=== PATIENT | female | born 1930 | race African-American/Black ===

== ENCOUNTER 2018-01-28 05:39 | Emergency (ER) | payer OTHER ==
--- OUTSIDE RECORDS SUMMARY | 2018-01-28 05:41 | XMS REPORT | Clinical Summary ---
:1930 [facility] Address [address] [place] [address] Care Team Providers Name Role Phone Unavailable Primary Care Provider Unavailable Allergies Not on File Medications Not on file Active Problems Not on file Social History Tobacco Use Types Packs/Day Years Used Date Never Assessed Sex Assigned at Date Recorded Not on file Job Start Date Occupation Industry Not on file Not on file Not on file Travel History Travel Start Travel End No recent travel history available. Last Filed Vital Signs Not on file Plan of Treatment Health Maintenance Due Date Last Done Comments SHINGRIX VACCINE (1 of 2) 12/31/1981 ZOSTER VACCINE 1992 PNEUMOCOCCAL POLYSACCHARIDE VACCINE AGE 65 AND OVER 12/31/1996 PNEUMOCOCCAL-13 12/31/1996 INFLUENZA VACCINE 09/24/2017 Results Not on fileafter 01/27/2017 Insurance Payer Benefit Plan / Group Subscriber ID Type Phone Address [employer] [facility] xxxxxxxxx [facility] MEDICAID MEDICAID xxxxxxxxx Medicaid UHC MEDICARE UNITED/CARE [facility] xxxxxxxxx [facility] MEDICARE MEDICARE PART A AND B xxxxxxxxxxx Medicare [place], [place] Advance Directives Patient has advance care planning documents on file. For more information, please contact:[facility] [place] [address]
--- OUTSIDE RECORDS SUMMARY | 2018-01-28 05:41 | XMS REPORT | Continuity of Care Document ---
:1930 Author Organization Interface Problems Problem Status Onset Date Classification Date Comments Source Reported Medications Medication Details Route Status Patient Ordering Order Source Instructions Provider Date Allergies, Adverse Reactions, Alerts Substance Category Reaction Severity Reaction Status Date Comments Source type Reported Immunizations Immunization Date Given Site Status Last Updated Comments Source Results Order Results Value Reference Date Interpretation Comments Source Name Range Vital Signs Vital Sign Value Date Comments Source Encounters Location Location Encounter Encounter Reason Attending ADM DC Status Source Details Type Number For Provider Date Date Visit Outpatient [id number] [facility] 12/11 [facility] Outpatient [id number] [facility] 03/12 [facility] Procedures Procedure Code Date Perfomer Comments Source
[2018-01-28 06:56] LABS: Absolute Lymphocytes (CBC) 2.9 K/uL (0.7-4.9); Absolute Monocytes 0.9 K/uL (0.1-1.3); Absolute Neutrophil 6.7 K/uL (1.8-8.0); Basophils % 1.1 % (0-1.3); Eosinophils % 1.2 % (0-4.4); Hematocrit 39.8 % (36.0-45.0); Lymphocytes % 26.7 % (15.3-44.8); MCH 28.6 pg (27.0-35.0); MCV 84.9 fL (80-100); Monocytes % 8.2 % (3.3-12.3); RBC Red Blood Cell Count 4.69 M/uL (3.86-4.86)
[2018-01-28 07:09] LABS: Urine Blood NEGATIVE (NEG); Urine Glucose NEGATIVE (NEG); Urine Protein NEGATIVE (NEG); Urine Specific Gravity 1.015 (1.005-1.030); Urine pH 7.5 (5.0-7.0)
[2018-01-28] MEDS ORDERED: NA CHLORIDE 0.9% 1,000 ML ONE (07:23)
[2018-01-28 08:38] LABS: Potassium 2.9 mmol/L (3.5-5.1)
[2018-01-28] MEDS ORDERED: POTASSIUM CL SA 10 MEQ TAB PO ONE (09:13)
[2018-01-28] MEDS ORDERED: POTASSIUM 25 MEQ EFFERV TAB ONE (09:14)
--- NOTE | 2018-01-28 09:23 | RAD REPORT ---
EXAM DESCRIPTION: CT - Abdomen Pelvis W Contrast - 01/28/2018 8:55 am CLINICAL HISTORY: Abdominal pain, increased urinary frequency COMPARISON: None. TECHNIQUE: Biphasic, helical CT imaging of the abdomen and pelvis was performed following 100 ml non -ionic IV contrast. No oral contrast administered. All CT scans are performed using dose optimization technique as appropriate and may include automated exposure control or mA/KV adjustment according to patient size. FINDINGS: No suspicious findings in the lung bases. The liver, spleen, and pancreas show no suspicious findings. Multiple gallstones are present without evidence for an acute gallbladder process. No biliary tree dilatation. Pneumobilia is present. Symmetric renal function is seen with no hydronephrosis or suspicious renal mass. No pyelonephritis f indings. No perinephric stranding. Adrenal glands are unremarkable. No urinary bladder wall thickenin g, mass or enhancement. Uterus and ovaries show no significant findings. No dilated bowel loops or bowel wall thickening. No appendicitis findings. No free air, free fluid or inflammatory stranding. Small mesenteric lymph nodes are present and there is a mild congestion of t he central mesenteric fat. No hernia, mass or bulky lymphadenopathy. Disc and bony degenerative changes are present. No pathologic bone process seen. IMPRESSION: No pyelonephritis is identified. No acute finding seen to explain urinary frequency s ymptoms. No acute GI process. Patient has a mild congestion of the central mesenteric fat and a few mesenteric lymph nodes. Pneumobilia is present without biliary tree dilatation. Patient gave a history of cholecystectomy ; h owever, a gallbladder with stones is identified. No cholecystectomy clips are seen in the patient may have at a sphincterotomy rather than a cholecystectomy.
--- NOTE | 2018-01-28 10:53 | EDPHYS ---
Physician Documentation [facility] Name: Cortney Orozco Age: 88 yrs Sex: Female : 1930 Arrival Date: 01/28/2018 Time: 05:41 Bed 16 Private MD: Roman Chappell E ED Physician Bradly Barker HPI: 01/28 06:12 This 88 yrs old Black Female presents to ER via Ambulatory with complaints of Flank kb Pain. 06:12 The patient complains of pain in the left flank. The pain radiates to the left upper kb quadrant and left lower quadrant. Onset: The symptoms/episode began/occurred 3 day(s) ago. Modifying factors: The symptoms are alleviated by nothing. the symptoms are aggravated by nothing. Associated signs and symptoms: The patient has no apparent associated signs or symptoms. Severity of pain: At its worst the pain was mild moderate in the emergency department the pain is unchanged. The patient has not experienced similar symptoms in the past. The patient has not recently seen a physician. Pt reports left side pain for 3 days. Denies fever, n/v/d, and urinary symptoms.. Historical: - Allergies: 06:00 No Known Allergies; cc3 - Home Meds: 06:00 Klor-Con 10 10 mEq oral TbER 2 times per day [Active]; Xarelto 20 mg oral tab 1 tab cc3 once daily [Active]; amlod-benaz 10/40 once daily [Active]; hydrochlorothiazide 25 mg Oral tab 1 tab once daily [Active]; atorvastatin 20 mg oral tab 1 tab once daily [Active]; losartan 50 mg oral tab 1 tab once daily [Active]; metoprolol tartrate 100 mg Oral tab 1 tab once daily [Active]; - PMHx: 06:00 history of blood clot; High Cholesterol; Hypertension; cc3 - PSHx: 06:00 Cholecystectomy; partial thyroidectomy; cc3 - Immunization history:: Adult Immunizations up to date. - Social history:: Smoking status: Patient/guardian denies using tobacco, never smoked. - Ebola Screening: : No symptoms or risks identified at this time. ROS: 06:12 Constitutional: Negative for fever, chills, and weight loss, Cardiovascular: Negative kb for chest pain, palpitations, and edema, Respiratory: Negative for shortness of breath, cough, wheezing, and pleuritic chest pain, : Negative for injury, bleeding, discharge, and swelling, MS/Extremity: Negative for injury and deformity, Skin: Negative for injury, rash, and discoloration, Neuro: Negative for headache, weakness, numbness, tingling, and seizure. 06:12 Abdomen/GI: Positive for abdominal pain, Negative for nausea, vomiting, and diarrhea. 06:12 Back: Positive for flank pain, on the left. Exam: 06:12 Constitutional: This is a well developed, well nourished patient who is awake, alert, kb and in no acute distress. Head/Face: Normocephalic, atraumatic. Neck: Trachea midline, no thyromegaly or masses palpated, and no cervical lymphadenopathy. Supple, full range of motion without nuchal rigidity, or vertebral point tenderness. No Meningismus. Chest/axilla: Normal chest wall appearance and motion. Nontender with no deformity. No lesions are appreciated. Cardiovascular: Regular rate and rhythm with a normal S1 and S2. No gallops, murmurs, or rubs. Normal PMI, no JVD. No pulse deficits. Respiratory: Lungs have equal breath sounds bilaterally, clear to auscultation and percussion. No rales, rhonchi or wheezes noted. No increased work of breathing, no retractions or nasal flaring. Abdomen/GI: Soft, non-tender, with normal bowel sounds. No distension or tympany. No guarding or rebound. No evidence of tenderness throughout. Skin: Warm, dry with normal turgor. Normal color with no rashes, no lesions, and no evidence of cellulitis. MS/ Extremity: Pulses equal, no cyanosis. Neurovascular intact. Full, normal range of motion. Neuro: Awake and alert, GCS 15, oriented to person, place, time, and situation. Cranial nerves II-XII grossly intact. Motor strength 5/5 in all extremities. Sensory grossly intact. Cerebellar exam normal. Normal gait. 06:12 Back: ROM is normal, CVA tenderness, that is mild, is noted on the left. Vital Signs: 06:00 BP 161 / 89; Pulse 93; Resp 18 S; Temp 98.6(O); Pulse Ox 97% on R/A; Weight 85.28 kg cc3 (R); Height 5 ft. 4 in. (162.56 cm) (R); Pain 4/10; 07:32 BP 142 / 82; Pulse 86; Resp 16; Pulse Ox 99% on R/A; Pain 4/10; ph 09:20 BP 154 / 89; Pulse 93; Resp 18; Pulse Ox 100% on R/A; ph 10:30 BP 129 / 87; Pulse 84; Resp 18; Pulse Ox 96% on R/A; ph 11:12 BP 143 / 82; Pulse 87; Resp 18; Temp 98.8; Pulse Ox 98% on R/A; ph 06:00 Body Mass Index 32.27 (85.28 kg, 162.56 cm) cc3 MDM: 06:03 Patient medically screened. kb 06:12 Data reviewed: vital signs, nurses notes. Data interpreted: Pulse oximetry: on room air kb is 97 %. Interpretation: normal. 10:51 Counseling: I had a detailed discussion with the patient and/or guardian regarding: the kb historical points, exam findings, and any diagnostic results supporting the discharge/admit diagnosis, lab results, radiology results, the need for outpatient follow up, a family practitioner, to return to the emergency department if symptoms worsen or persist or if there are any questions or concerns that arise at home. 01/28 06:10 Order name: Basic Metabolic Panel; Complete Time: 08:40 kb 01/28 06:10 Order name: CBC with Diff; Complete Time: 07:10 kb 01/28 06:48 Order name: Urine Dipstick--Ancillary (enter results); Complete Time: 07:10 ms 01/28 07:11 Order name: CT Abd/Pelvis - W/Contrast; Complete Time: 09:27 kb 01/28 09:44 Order name: Lactate kb 01/28 10:43 Order name: Lactate; Complete Time: 10:48 EDMS 01/28 06:10 Order name: IV Saline Lock; Complete Time: 06:44 kb 01/28 06:10 Order name: Labs collected and sent; Complete Time: 06:44 kb 01/28 07:06 Order name: Labs - recollect needed; Complete Time: 07:31 eb Administered Medications: 07:31 Drug: NS 0.9% 1000 ml Route: IV; Rate: 1000 ml; Site: right antecubital; ph 09:17 Follow up: Response: No adverse reaction; IV Status: Completed infusion ph 09:17 Drug: Potassium Chloride 40 mEq Route: PO; ph 09:18 Follow up: Response: No adverse reaction ph 11:11 Drug: Cipro 500 mg Route: PO; ph 11:11 Follow up: Response: No adverse reaction ph 11:11 Drug: Flagyl 500 mg Route: PO; ph 11:12 Follow up: Response: No adverse reaction ph Disposition: 01/28/18 10:52 Discharged to Home. Impression: Generalized abdominal pain. - Condition is Stable. - Discharge Instructions: Abdominal Pain, Adult, [id number]. - Prescriptions for Cipro 500 mg Oral Tablet - take 1 tablet by ORAL route every 12 hours for 10 days; 20 tablet. Flagyl 500 mg Oral Tablet - take 1 tablet by ORAL route every 8 hours for 10 days; 30 tablet. - Medication Reconciliation Form, Thank You Letter, Antibiotic Education, Prescription Opioid Use form. - Family Work Release (01/28/18 19:13). em1 - Follow up: Emergency Department; When: As needed; Reason: Worsening of condition. Follow up: Private Physician; When: 2 - 3 days; Reason: Recheck today's complaints, Continuance of care, Re-evaluation by your physician. Signatures: Dispatcher [employer] EDJudith Hatch, SALVAGE WINDER-C SALVAGE WINDER-Maddi Martin RN RN Sofy Dubois Charlene cc3 Martinez, Bartolome em1 Corrections: (The following items were deleted from the chart) 11:31 10:52 01/28/2018 10:52 Discharged to Home. Impression: Generalized abdominal pain. ph Condition is Stable. Forms are Medication Reconciliation Form, Thank You Letter, Antibiotic Education, Prescription Opioid Use. Follow up: Emergency Department; When: As needed; Reason: Worsening of condition. Follow up: Private Physician; When: 2 - 3 days; Reason: Recheck today's complaints, Continuance of care, Re-evaluation by your physician. kb
--- NOTE | 2018-01-28 10:53 | ER ---
Nurse's Notes [facility] Name: Cortney Orozco Age: 88 yrs Sex: Female : 1930 Arrival Date: 01/28/2018 Time: 05:41 Bed 16 Private MD: Roman Chappell E Diagnosis: Generalized abdominal pain Presentation: 01/28 06:00 Presenting complaint: Patient states: complains of urinary frequency that comes \T\ goes cc3 3-4 days ago. Was seen by PCP yesterday. Transition of care: patient was not received from another setting of care. Onset of symptoms was January 24, 2018. Risk Assessment: Do you want to hurt yourself or someone else? Patient reports no desire to harm self or others. Initial Sepsis Screen: Does the patient meet any 2 criteria? No. Patient's initial sepsis screen is negative. Does the patient have a suspected source of infection? No. Patient's initial sepsis screen is negative. Care prior to arrival: None. 06:00 Method Of Arrival: Ambulatory cc3 06:00 Acuity: VITALIY 3 cc3 Triage Assessment: 06:00 General: Appears in no apparent distress. comfortable, Behavior is calm, cooperative, cc3 appropriate for age. Pain: Complains of pain in left flank pain. EENT: No signs and/or symptoms were reported regarding the EENT system. Neuro: Level of Consciousness is awake, alert, obeys commands, Oriented to person, place, time, situation, Appropriate for age. Cardiovascular: Denies chest pain. Respiratory: Airway is patent Respiratory effort is even, unlabored, Respiratory pattern is regular, symmetrical. GI: Abdomen is round obese. : Reports urinary frequency, since 3-4 days back. Derm: No signs and/or symptoms reported regarding the dermatologic system. Musculoskeletal: Circulation, motion, and sensation intact. Range of motion: intact in all extremities. Historical: - Allergies: 06:00 No Known Allergies; cc3 - Home Meds: 06:00 Klor-Con 10 10 mEq oral TbER 2 times per day [Active]; Xarelto 20 mg oral tab 1 tab cc3 once daily [Active]; amlod-benaz 10/40 once daily [Active]; hydrochlorothiazide 25 mg Oral tab 1 tab once daily [Active]; atorvastatin 20 mg oral tab 1 tab once daily [Active]; losartan 50 mg oral tab 1 tab once daily [Active]; metoprolol tartrate 100 mg Oral tab 1 tab once daily [Active]; - PMHx: 06:00 history of blood clot; High Cholesterol; Hypertension; cc3 - PSHx: 06:00 Cholecystectomy; partial thyroidectomy; cc3 - Immunization history:: Adult Immunizations up to date. - Social history:: Smoking status: Patient/guardian denies using tobacco, never smoked. - Ebola Screening: : No symptoms or risks identified at this time. Screenin:00 Abuse screen: Denies threats or abuse. Denies injuries from another. Nutritional cc3 screening: No deficits noted. Tuberculosis screening: No symptoms or risk factors identified. Fall Risk Ambulatory Aid- None/Bed Rest/Nurse Assist (0 pts). Gait- Normal/Bed Rest/Wheelchair (0 pts) Mental Status- Oriented to own ability (0 pts). Assessment: 06:00 General: see triage assessment. cc3 07:31 Reassessment: Patient appears in no apparent distress at this time. Patient and/or ph family updated on plan of care and expected duration. Pain level reassessed. Patient is alert, oriented x 3, equal unlabored respirations, skin warm/dry/pink. Pt resting quietly, VSS, awaiting CT scan, daughter at bedside. 09:19 Reassessment: Patient appears in no apparent distress at this time. Patient and/or ph family updated on plan of care and expected duration. Pain level reassessed. Patient is alert, oriented x 3, equal unlabored respirations, skin warm/dry/pink. Pt resting quietly, awaiting CT results, family at bedside. 10:30 Reassessment: Patient appears in no apparent distress at this time. Patient and/or ph family updated on plan of care and expected duration. Pain level reassessed. Patient is alert, oriented x 3, equal unlabored respirations, skin warm/dry/pink. Pt resting quietly, awaiting lab results, daughter at bedside, VSS. Vital Signs: 06:00 BP 161 / 89; Pulse 93; Resp 18 S; Temp 98.6(O); Pulse Ox 97% on R/A; Weight 85.28 kg cc3 (R); Height 5 ft. 4 in. (162.56 cm) (R); Pain 4/10; 07:32 BP 142 / 82; Pulse 86; Resp 16; Pulse Ox 99% on R/A; Pain 4/10; ph 09:20 BP 154 / 89; Pulse 93; Resp 18; Pulse Ox 100% on R/A; ph 10:30 BP 129 / 87; Pulse 84; Resp 18; Pulse Ox 96% on R/A; ph 11:12 BP 143 / 82; Pulse 87; Resp 18; Temp 98.8; Pulse Ox 98% on R/A; ph 06:00 Body Mass Index 32.27 (85.28 kg, 162.56 cm) cc3 ED Course: 05:41 Patient arrived in ED. al2 05:41 Roman Chappell MD is Private Physician. al2 06:00 Arm band placed on right wrist. cc3 06:00 Patient has correct armband on for positive identification. Bed in low position. Call cc3 light in reach. Side rails up X 1. Pulse ox on. NIBP on. 06:03 Jessica Saavedra is Primary Nurse. cc3 06:03 Judith Alan FNP-C is PHCP. kb 06:03 Bradly Barker MD is Attending Physician. kb 06:08 Triage completed. cc3 06:35 Inserted saline lock: 20 gauge in right antecubital area, using aseptic technique. cc3 Blood collected. 07:00 Report given to LISA GRACE. cc3 07:06 Maddi Cutler RN is Primary Nurse. ph 07:32 Lab(s) recollected, by me, sent to lab. ph 08:55 CT Abd/Pelvis - W/Contrast In Process Unspecified. EDMS 11:13 No provider procedures requiring assistance completed. IV discontinued, intact, ph bleeding controlled, No redness/swelling at site. Pressure dressing applied. Administered Medications: 07:31 Drug: NS 0.9% 1000 ml Route: IV; Rate: 1000 ml; Site: right antecubital; ph 09:17 Follow up: Response: No adverse reaction; IV Status: Completed infusion ph 09:17 Drug: Potassium Chloride 40 mEq Route: PO; ph 09:18 Follow up: Response: No adverse reaction ph 11:11 Drug: Cipro 500 mg Route: PO; ph 11:11 Follow up: Response: No adverse reaction ph 11:11 Drug: Flagyl 500 mg Route: PO; ph 11:12 Follow up: Response: No adverse reaction ph Outcome: 10:52 Discharge ordered by . gasper 11:13 Discharged to home ambulatory, with family. ph 11:13 Condition: good 11:13 Discharge instructions given to patient, family, Instructed on discharge instructions, follow up and referral plans. medication usage, Demonstrated understanding of instructions, follow-up care, medications, Prescriptions given X 2. 11:31 Patient left the ED. ph Signatures: Dispatcher [employer] EDJudith Hatch, FLOOR SPECIALIST-C NAVDEEP-Maddi Martin, RN RN Zina, Jessica Rodriguez cc3
[2018-01-28] MEDS ORDERED: CIPROFLOXACIN HCL 500 MG TAB ONE (11:12)
[2018-01-28] MEDS ORDERED: metroNIDAZOLE 500 MG TABLET ONE (11:12)
== END 2018-01-28 11:31 | disposition home or self-care (01) ==
LOC: ER 05:39
DX: R10.84 Generalized abdominal pain (principal); I10 Essential (primary) hypertension; E78.00 Pure hypercholesterolemia, unspecified; Z79.01 Long term (current) use of anticoagulants
CPT/HCPCS: 36415; 74177; 80048; 81003; 83605; 85025; J7030; Q9967

== ENCOUNTER 2018-04-18 12:11 | Emergency (ER) | payer OTHER ==
--- OUTSIDE RECORDS SUMMARY | 2018-04-18 12:13 | XMS REPORT | Continuity of Care Document ---
[...] Number For Provider Date Date Visit Outpatient [id number] [facility] 12/11 [facility] [place] Outpatient [id number] [facility] 03/12 [facility] [place] Procedures Procedure Code Date Perfomer Comments Source
[2018-04-18 12:55] LABS: Absolute Lymphocytes (CBC) 1.2 K/uL (0.7-4.9); Absolute Monocytes 1.1 K/uL (0.1-1.3); Absolute Neutrophil 10.7 K/uL (1.8-8.0); Basophils % 0.2 % (0-1.3); Eosinophils % 0.4 % (0-4.4); Lymphocytes % 9.4 % (15.3-44.8); MPV 8.4 fL (7.6-11.3); Monocytes % 8.6 % (3.3-12.3); RBC Red Blood Cell Count 5.54 M/uL (3.86-4.86)
[2018-04-18] MEDS ORDERED: NA CHLORIDE 0.9% 500 ML ONE (12:59)
[2018-04-18] MEDS ORDERED: ONDANSETRON 4 MG/2 ML VIAL ONE (12:59)
[2018-04-18 13:16] LABS: Albumin 3.5 g/dL (3.4-5.0); Bilirubin Direct 0.3 mg/dL (0-0.2); Bilirubin Total 1.2 mg/dL (0.2-1.0); Protein, Total 7.7 g/dL (6.4-8.2)
[2018-04-18 13:22] LABS: Potassium 2.7 mmol/L (3.5-5.1)
--- NOTE | 2018-04-18 15:15 | RAD REPORT ---
EXAM DESCRIPTION: CT - Abdomen Pelvis W Contrast - 04/18/2018 2:51 pm CLINICAL HISTORY: Abdominal pain, nausea and vomiting COMPARISON: January 2018 TECHNIQUE: Axial 5 millimeter thick images of the abdomen and pelvis were obtained following IV cont rast. Due to technical malfunction exam was performed as a late venous phase examination. No oral con trast administered. All CT scans are performed using dose optimization technique as appropriate and may include automated exposure control or mA/KV adjustment according to patient size. FINDINGS: Cardiomegaly is present without pericardial thickening or effusion. Significant scarring c hanges are present in each lung base. The liver, spleen, and pancreas show no suspicious findings. Gallbladder is filled with multiple smal l gallstones. No acute gallbladder finding. No biliary tree dilatation. Gallstones have been previous ly detailed. Symmetric renal function is seen with no hydronephrosis or suspicious renal mass. No pyelonephritis o r acute parenchymal process. No bladder abnormalities. No adrenal abnormalities. Uterus and ovaries s how no suspicious findings for age. No gastric dilatation or gastric wall thickening seen. Small bowel loops are not dilated. There are m ultiple prominent small bowel loops with mildly enhancing crow. There is stranding and edema in the central mesenteric fat. There several 10 mm or less central mesenteric lymph nodes. No appendicitis i s present. Patient has diverticulosis but no diverticulitis. No primary large bowel process seen. No free air, free fluid or pneumatosis. No hernia, mass or bulky lymphadenopathy. Advanced disc and bony degenerative change present. No acute bone finding or pathologic bone process. IMPRESSION: Infectious/inflammatory small bowel enteritis findings with central mesenteric reactive lymph nodes. No free air, obstruction or surgically emergent finding. Extensive cholelithiasis without acute gallbladder or biliary tree finding suspected.
--- NOTE | 2018-04-18 16:13 | ER ---
Nurse's Notes [facility] Name: Cortney Orozco Age: 88 yrs Sex: Female : 1930 Arrival Date: 04/18/2018 Time: 12:14 Bed 18 Private MD: Diagnosis: Vomiting;Diarrhea, unspecified Presentation: 04/18 12:30 Presenting complaint: N/V/D and abdominal cramping since midnight. Not tolerating hb fluids. Transition of care: patient was not received from another setting of care. Onset of symptoms was April 18, 2018. Risk Assessment: Do you want to hurt yourself or someone else? Patient reports no desire to harm self or others. Initial Sepsis Screen: Does the patient meet any 2 criteria? No. Patient's initial sepsis screen is negative. Does the patient have a suspected source of infection? No. Patient's initial sepsis screen is negative. Care prior to arrival: None. 12:30 Method Of Arrival: Wheelchair hb 12:30 Acuity: VITALIY 3 hb Historical: - Allergies: 14:49 No Known Allergies; em - PMHx: 12:21 High Cholesterol; history of blood clot; Hypertension; sg - PSHx: 12:21 Cholecystectomy; partial thyroidectomy; sg - Immunization history:: Adult Immunizations up to date. - Social history:: Smoking status: Patient/guardian denies using tobacco. - Ebola Screening: : Patient negative for fever greater than or equal to 101.5 degrees Fahrenheit, and additional compatible Ebola Virus Disease symptoms Patient denies exposure to infectious person Patient denies travel to an Ebola-affected area in the 21 days before illness onset No symptoms or risks identified at this time. Screenin:31 Abuse screen: Denies threats or abuse. Denies injuries from another. Nutritional hb screening: No deficits noted. Tuberculosis screening: No symptoms or risk factors identified. Fall Risk None identified. Assessment: 12:40 General: Appears in no apparent distress. comfortable, Behavior is calm, cooperative, em Denies fever. Pain: Denies pain. Neuro: Level of Consciousness is awake, alert, obeys commands, Oriented to person, place, time, situation, Reports headache weakness. Cardiovascular: Denies chest pain. Respiratory: Airway is patent Respiratory effort is even, unlabored, Respiratory pattern is regular, symmetrical. GI: Abdomen is flat, Bowel sounds present X 4 quads. Abd is soft and non tender X 4 quads. Reports diarrhea, nausea, vomiting. Derm: Skin is intact, is healthy with good turgor, Skin is pink, warm \T\ dry. Musculoskeletal: Range of motion: intact in all extremities. 12:55 Reassessment: I agree with previous assessment. hb 13:39 Reassessment: Patient appears in no apparent distress at this time. Patient and/or em family updated on plan of care and expected duration. Pain level reassessed. Patient is alert, oriented x 3, equal unlabored respirations, skin warm/dry/pink. Patient states feeling better. Patient states symptoms have improved. 14:53 Reassessment: Patient appears in no apparent distress at this time. Patient and/or em family updated on plan of care and expected duration. Pain level reassessed. Patient is alert, oriented x 3, equal unlabored respirations, skin warm/dry/pink. Patient states feeling better. Patient states symptoms have improved. 16:13 Reassessment: Patient appears in no apparent distress at this time. Patient and/or em family updated on plan of care and expected duration. Pain level reassessed. Patient is alert, oriented x 3, equal unlabored respirations, skin warm/dry/pink. Patient denies pain at this time. Patient states feeling better. Patient states symptoms have improved. Vital Signs: 12:29 BP 135 / 85; Pulse 84; Resp 16; Temp 98.5; Pulse Ox 96% on R/A; Pain 2/10; hb 13:39 BP 133 / 90; Pulse 93; Resp 16; Pulse Ox 96% on R/A; em 14:53 BP 133 / 74; Pulse 91; Resp 18; Pulse Ox 97% on R/A; Pain 0/10; em 16:00 BP 120 / 81; Pulse 92; Resp 16; Pulse Ox 95% on R/A; em ED Course: 12:14 Patient arrived in ED. mr 12:21 Arm band placed on. sg 12:23 Bernard Read PA is PHCP. jmm 12:23 Suhas Valdivia MD is Attending Physician. jmm 12:27 Israel Spence LVN is Primary Nurse. em 12:31 Triage completed. hb 12:31 Patient has correct armband on for positive identification. Bed in low position. Call hb light in reach. Side rails up X 1. 12:44 Initial lab(s) drawn, by me, sent to lab. Inserted saline lock: 22 gauge in right em antecubital area, using aseptic technique. Blood collected. 14:51 CT Abd/Pelvis - W/Contrast In Process Unspecified. EDMS 16:22 No provider procedures requiring assistance completed. IV discontinued, intact, em bleeding controlled, No redness/swelling at site. Pressure dressing applied. Administered Medications: 12:50 Drug: NS 0.9% 500 ml Route: IV; Rate: bolus; Site: right antecubital; em 13:30 Follow up: IV Status: Completed infusion; IV Intake: 500ml em 13:10 Drug: Zofran 4 mg Route: IVP; Site: right antecubital; hb 13:30 Follow up: Response: No adverse reaction; Nausea is decreased em Intake: 13:30 IV: 500ml; Total: 500ml. em Outcome: 16:13 Discharge ordered by MD. [facility] 16:25 Discharged to home ambulatory, with family. em 16:25 Condition: good 16:25 Discharge instructions given to patient, family, Instructed on discharge instructions, follow up and referral plans. medication usage, Demonstrated understanding of instructions, follow-up care, medications, Prescriptions given X 1. 16:26 Patient left the ED. em Signatures: Dispatcher [employer] Odin Ibarra, RN RN Bernard Randhawa PA PA Marlene Cole mr SpenceIsrael, [employer]CRAFT [employer]GING [employer] CONTROLS MECHANIC [employer]CRAFT RIGGING [employer] CONTROLS MECHANIC em Bozena Bautista, LISA GONZALEZ hb
--- NOTE | 2018-04-18 16:13 | EDPHYS ---
Physician Documentation [facility] Name: Cortney Orozco Age: 88 yrs Sex: Female : 1930 Arrival Date: 04/18/2018 Time: 12:14 Bed 18 Private MD: ED Physician Suhas Valdivia HPI: 04/18 12:32 This 88 yrs old Black Female presents to ER via Wheelchair with complaints of jmm Vomiting/Diarrhea. 12:32 The patient presents to the emergency department with nausea, vomiting, diarrhea, jmm abdominal pain. Onset: The symptoms/episode began/occurred gradually, at 00:00. Possible causes: sick contacts, by family, son. Associated signs and symptoms: Pertinent positives: diarrhea, vomiting. This is an 88 year old female with a history of htn that presents to the ED with complaints of vomiting, diarrhea beginning last night. Patient's son had similar symptoms 3 days prior. Patient complains of abdominal cramping. Denies recent travel, denies recent abx use. . Historical: - Allergies: 14:49 No Known Allergies; em - PMHx: 12:21 High Cholesterol; history of blood clot; Hypertension; sg - PSHx: 12:21 Cholecystectomy; partial thyroidectomy; sg - Immunization history:: Adult Immunizations up to date. - Social history:: Smoking status: Patient/guardian denies using tobacco. - Ebola Screening: : Patient negative for fever greater than or equal to 101.5 degrees Fahrenheit, and additional compatible Ebola Virus Disease symptoms Patient denies exposure to infectious person Patient denies travel to an Ebola-affected area in the 21 days before illness onset No symptoms or risks identified at this time. ROS: 12:32 Constitutional: Negative for fever, chills, and weight loss, Cardiovascular: Negative jmm for chest pain, palpitations, and edema, Respiratory: Negative for shortness of breath, cough, wheezing, and pleuritic chest pain. 12:32 Abdomen/GI: Positive for abdominal pain, nausea and vomiting, diarrhea. 12:32 All other systems are negative. Exam: 12:32 Constitutional: This is a well developed, well nourished patient who is awake, alert, jmm and in no acute distress. Head/Face: atraumatic. Eyes: EOMI, no conjunctival erythema appreciated ENT: Moist Mucus Membranes Neck: Trachea midline, Supple Chest/axilla: Normal chest wall appearance and motion. Cardiovascular: Regular rate and rhythm. No edema appreciated Respiratory: Normal respirations, no respiratory distress appreciated 12:32 Skin: General appearance color normal MS/ Extremity: Moves all extremities, no obvious deformities appreciated, no edema noted to the lower extremities Neuro: Awake and alert, normal gait 12:32 Abdomen/GI: Inspection: abdomen appears normal, Bowel sounds: normal, Palpation: abdomen is soft and non-tender, in all quadrants. Vital Signs: 12:29 BP 135 / 85; Pulse 84; Resp 16; Temp 98.5; Pulse Ox 96% on R/A; Pain 2/10; hb 13:39 BP 133 / 90; Pulse 93; Resp 16; Pulse Ox 96% on R/A; em 14:53 BP 133 / 74; Pulse 91; Resp 18; Pulse Ox 97% on R/A; Pain 0/10; em 16:00 BP 120 / 81; Pulse 92; Resp 16; Pulse Ox 95% on R/A; em MDM: 12:32 Patient medically screened. cam 16:11 Data reviewed: vital signs, nurses notes. Counseling: I had a detailed discussion with juana the patient and/or guardian regarding: the historical points, exam findings, and any diagnostic results supporting the discharge/admit diagnosis, lab results, radiology results, the need for outpatient follow up, to return to the emergency department if symptoms worsen or persist or if there are any questions or concerns that arise at home. ED course: Patient is alert and non toxic in appearance in the ED. Patient tolerates PO. I discussed with the family the need for close follow. patient was also given strict return precautions. patient understood and agrees with the plan of care. . 04/18 12:34 Order name: Basic Metabolic Panel; Complete Time: 13:23 [facility] 04/18 12:34 Order name: CBC with Diff; Complete Time: 13:22 [facility] 04/18 12:34 Order name: Creatinine for Radiology; Complete Time: 13:22 [facility] 04/18 12:34 Order name: Hepatic Function; Complete Time: 13:23 [facility] 04/18 12:34 Order name: Lipase; Complete Time: 13:23 [facility] 04/18 15:54 Order name: Urine Dipstick--Ancillary (enter results) dc 04/18 12:34 Order name: IV Saline Lock; Complete Time: 12:57 [facility] 04/18 12:34 Order name: Labs collected and sent; Complete Time: 12:57 [facility] 04/18 12:34 Order name: Urine Dipstick-Ancillary (obtain specimen); Complete Time: 12:57 [facility] 04/18 13:22 Order name: CT Abd/Pelvis - W/Contrast; Complete Time: 15:21 [facility] 04/18 15:22 Order name: PO challenge; Complete Time: 16:13 [facility] Administered Medications: 12:50 Drug: NS 0.9% 500 ml Route: IV; Rate: bolus; Site: right antecubital; em 13:30 Follow up: IV Status: Completed infusion; IV Intake: 500ml em 13:10 Drug: Zofran 4 mg Route: IVP; Site: right antecubital; hb 13:30 Follow up: Response: No adverse reaction; Nausea is decreased em Disposition: 04/18/18 16:13 Discharged to Home. Impression: Vomiting, Diarrhea, unspecified. - Condition is Stable. - Discharge Instructions: Food Choices to Help Relieve Diarrhea, Adult, Diarrhea, Adult, Nausea and Vomiting, Adult. - Prescriptions for Zofran ODT 4 mg Oral tablet,disintegrating - place 1 tablet by TRANSLINGUAL route every 4-6 hours; 20 tablet. - Medication Reconciliation Form, Thank You Letter, Antibiotic Education, Prescription Opioid Use form. - Follow up: Private Physician; When: 2 - 3 days; Reason: Recheck today's complaints, Continuance of care, Re-evaluation by your physician. Addendum: 04/20/2018 07:41 Co-signature as Attending Physician, Suhas Valdivia MD I agree with the assessment and c wilkins plan of care. Signatures: Dispatcher [employer] Odin Ibarra, RN RN Suhas Montemayor MD MD cha Mickail, Joel, PA PA m Israel Spence, LITIGATION PARTNER LITIGATION PARTNER em Bozena Bautista, RN RN Corrections: (The following items were deleted from the chart) 04/18 16:26 16:13 04/18/2018 16:13 Discharged to Home. Impression: Vomiting; Diarrhea, unspecified. em Condition is Stable. Forms are Medication Reconciliation Form, Thank You Letter, Antibiotic Education, Prescription Opioid Use. Follow up: Private Physician; When: 2 - 3 days; Reason: Recheck today's complaints, Continuance of care, Re-evaluation by your physician. juana
[2018-04-18 20:43] LABS: Urine Blood NEGATIVE (NEG); Urine Glucose NEGATIVE (NEG); Urine Protein NEGATIVE (NEG)
== END 2018-04-18 16:26 | disposition home or self-care (01) ==
LOC: ER 12:11
DX: R11.2 Nausea with vomiting, unspecified (principal); R19.7 Diarrhea, unspecified; R10.9 Unspecified abdominal pain; I10 Essential (primary) hypertension
CPT/HCPCS: 36415; 74177; 80048; 80076; 81003; 83690; 85025; 96361; 96374; 99284; J2405

== ENCOUNTER 2020-08-18 10:06 | Inpatient (IN) | payer OTHER ==
--- NOTE | 2020-08-18 13:36 | RAD REPORT ---
EXAM DESCRIPTION: US - Abdomen Exam Limited - 08/18/2020 1:29 pm CLINICAL HISTORY: ABD PAIN COMPARISON: No comparisons FINDINGS: The gallbladder demonstrates extensive cholelithiasis. No pericholecystic fluid or gallbla dder wall thickening. The common bile duct is not dilated. The liver demonstrates no findings of intrahepatic biliary dilatation. IMPRESSION: Extensive cholelithiasis.
[2020-08-18 13:52] LABS: Basophils % 1.1 % (0-1.3); Hematocrit 41.9 % (36.0-45.0); Lymphocytes % 29.4 % (15.3-44.8); MPV 8.5 fL (7.6-11.3); RBC Red Blood Cell Count 4.99 M/uL (3.86-4.86)
[2020-08-18 13:54] LABS: Protime INR 2.25
[2020-08-18 14:10] LABS: ALT/SGPT 28 U/L (12-78); AST/SGOT 22 U/L (15-37); Albumin 3.8 g/dL (3.4-5.0); Alkaline Phosphatase 123 U/L (45-117); BUN Blood Urea Nitrogen 11 mg/dL (7-18); Bicarbonate 30 mmol/L (21-32); Bilirubin Direct 0.2 mg/dL (0-0.2); Bilirubin Total 0.9 mg/dL (0.2-1.0); Glucose Level 123 mg/dL (74-106); Lipase 55 U/L (73-393); Magnesium 2.4 mg/dL (1.8-2.4); NT PRO-BNP 49 pg/mL (<450); Potassium 3.1 mmol/L (3.5-5.1); Protein, Total 8.4 g/dL (6.4-8.2); Sodium Level 139 mmol/L (136-145); Troponin (Emerg Dept Use Only) < 0.02 ng/mL (0.0-0.045)
--- NOTE | 2020-08-18 14:28 | RAD REPORT ---
EXAM DESCRIPTION: CT - Angio Aorta For Dissection - 08/18/2020 2:13 pm CLINICAL HISTORY: Chest pain radiating to the back. PAIN COMPARISON: Abdomen Pelvis W Contrast dated 04/18/2018 TECHNIQUE: CT angiography of the aorta was performed with MIPs. All CT scans are performed using dose optimization technique as appropriate and may include automated exposure control or mA/KV adjustment according to patient size. FINDINGS: A left aortic arch is present with normal branching pattern of the great vessels.No acute aortic finding is seen such as aneurysm, penetrating ulcer or dissection. The celiac axis, SMA, ALEJANDRO and renal arteries are patent. No evidence of pulmonary embolism. Mild scarring is present in both lung bases. No focal infiltrate seen. Mild pneumobilia has developed in the left lobe of the liver. Mild fatty liver infiltration is seen.N umerous gallstones are present gallbladder.The spleen, pancreas, adrenal glands and kidneys are withi n normal limits for arterial phase imaging. No bowel obstruction, free fluid or abscess.Prominent colonic diverticulosis without diverticulitis.N o pathologic enlarged lymphadenopathy identified.Normal appendix. Moderate thoracic and lumbar spine degenerative changes. IMPRESSION: No acute aortic finding is demonstrated. Mild pneumobilia is seen in the left lobe liver without clear etiology. 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 Cholelithiasis.
--- NOTE | 2020-08-18 14:41 | EDPHYS ---
Physician Documentation [facility] Name: Cortney Orozco Age: 89 yrs Sex: Female : 1930 Arrival Date: 08/18/2020 Time: 10:08 Bed 24 Private MD: DON Physician Suhas Valdivia HPI: 08/18 14:21 This 89 yrs old Black Female presents to ER via Wheelchair with complaints of Pain - cam ENTIRE RIGHT SIDE. 14:21 The patient presents with abdominal pain in the upper abdomen, in the right upper cam quadrant, abdominal distention in the upper abdomen, in the lower abdomen. Onset: The symptoms/episode began/occurred 2 day(s) ago. The symptoms do not radiate. Associated signs and symptoms: none. Severity of pain: At its worst the pain was mild moderate. The patient has not experienced similar symptoms in the past. Historical: - Allergies: 10:31 No Known Allergies; iw - PMHx: 10:31 High Cholesterol; history of blood clot; Hypertension; iw - PSHx: 10:32 left eye; biopsy thyroid; iw - Immunization history:: Client reports having NOT received the Covid vaccine. - Social history:: Smoking status: Patient denies any tobacco usage or history of. - Family history:: not pertinent. ROS: 14:21 Constitutional: Negative for fever, chills, and weight loss, Eyes: Negative for injury, cam pain, redness, and discharge, ENT: Negative for injury, pain, and discharge, Neck: Negative for injury, pain, and swelling, Cardiovascular: Negative for chest pain, palpitations, and edema, Respiratory: Negative for shortness of breath, cough, wheezing, and pleuritic chest pain, Back: Negative for injury and pain, : Negative for injury, bleeding, discharge, and swelling, MS/Extremity: Negative for injury and deformity, Skin: Negative for injury, rash, and discoloration, Neuro: Negative for headache, weakness, numbness, tingling, and seizure, Psych: Negative for depression, anxiety, suicide ideation, homicidal ideation, and hallucinations, Allergy/Immunology: Negative for hives, rash, and allergies, Endocrine: Negative for neck swelling, polydipsia, polyuria, polyphagia, and marked weight changes, Hematologic/Lymphatic: Negative for swollen nodes, abnormal bleeding, and unusual bruising. 14:21 Abdomen/GI: Positive for abdominal pain, of the right upper quadrant. Exam: 14:21 Constitutional: This is a well developed, well nourished patient who is awake, alert, cam and in no acute distress. Head/Face: Normocephalic, atraumatic. Eyes: Pupils equal round and reactive to light, extra-ocular motions intact. Lids and lashes normal. Conjunctiva and sclera are non-icteric and not injected. Cornea within normal limits. Periorbital areas with no swelling, redness, or edema. ENT: Nares patent. No nasal discharge, no septal abnormalities noted. Tympanic membranes are normal and external auditory canals are clear. Oropharynx with no redness, swelling, or masses, exudates, or evidence of obstruction, uvula midline. Mucous membranes moist. Neck: Trachea midline, no thyromegaly or masses palpated, and no cervical lymphadenopathy. Supple, full range of motion without nuchal rigidity, or vertebral point tenderness. No Meningismus. Chest/axilla: Normal chest wall appearance and motion. Nontender with no deformity. No lesions are appreciated. Cardiovascular: Regular rate and rhythm with a normal S1 and S2. No gallops, murmurs, or rubs. Normal PMI, no JVD. No pulse deficits. Respiratory: Lungs have equal breath sounds bilaterally, clear to auscultation and percussion. No rales, rhonchi or wheezes noted. No increased work of breathing, no retractions or nasal flaring. Back: No spinal tenderness. No costovertebral tenderness. Full range of motion. Female : Normal external genitalia. Skin: Warm, dry with normal turgor. Normal color with no rashes, no lesions, and no evidence of cellulitis. MS/ Extremity: Pulses equal, no cyanosis. Neurovascular intact. Full, normal range of motion. Neuro: Awake and alert, GCS 15, oriented to person, place, time, and situation. Cranial nerves II-XII grossly intact. Motor strength 5/5 in all extremities. Sensory grossly intact. Cerebellar exam normal. Normal gait. Psych: Awake, alert, with orientation to person, place and time. Behavior, mood, and affect are within normal limits. 14:21 Abdomen/GI: Inspection: distension, Bowel sounds: normal, Palpation: mild abdominal tenderness, moderate abdominal tenderness, in the epigastric area and right upper quadrant, Liver: no appreciated palpable abnormalities, Hernia: not appreciated. Vital Signs: 10:28 BP 129 / 73; Pulse 73; Resp 16; Temp 97.1; Pulse Ox 100% on R/A; Weight 79.38 kg; iw Height 5 ft. 4 in. (162.56 cm); Pain 8/10; 13:00 BP 142 / 78; Pulse 72; Resp 16 S; Pulse Ox 100% on R/A; ca1 14:00 BP 138 / 82; Pulse 62; Resp 19 S; Pulse Ox 100% on R/A; ca1 15:00 BP 143 / 70; Pulse 68; Resp 20 S; Pulse Ox 100% on R/A; ca1 16:00 BP 135 / 64; Pulse 62; Resp 18 S; Pulse Ox 100% on R/A; ca1 17:00 BP 137 / 72; Pulse 59; Resp 18 S; Pulse Ox 99% on R/A; ca1 18:10 BP 134 / 91; Pulse 90; Resp 18; Pulse Ox 94% on R/A; ca1 19:48 BP 135 / 87; Pulse 66; Resp 20; Temp 98.2; Pulse Ox 100% on R/A; Pain 0/10; fu 10:28 Body Mass Index 30.04 (79.38 kg, 162.56 cm) iw MDM: 11:57 Patient medically screened. [facility] 14:50 Differential diagnosis: AAA, bowel obstruction, coronary artery disease, cholecystitis, cam Cholelithiasis, gastritis, gastroesophageal reflux disease, non-specific abd pain, pancreatitis, Ureterolithiasis, urinary tract infection. Data reviewed: vital signs, nurses notes, lab test result(s), EKG, radiologic studies, CT scan. Data interpreted: residential monitor: rate is 73 beats/min, rhythm is regular, Pulse oximetry: on room air is 100 %. Test interpretation: by ED physician or midlevel provider: ECG, plain radiologic studies. Counseling: I had a detailed discussion with the patient and/or guardian regarding: the historical points, exam findings, and any diagnostic results supporting the discharge/admit diagnosis, lab results, radiology results, the need for further work-up and treatment in the hospital. 08/18 12:50 Order name: Basic Metabolic Panel; Complete Time: 14:15 [facility] 08/18 12:50 Order name: CBC with Diff; Complete Time: 14:15 [facility] 08/18 12:50 Order name: LFT's; Complete Time: 14:15 [facility] 08/18 12:50 Order name: Magnesium; Complete Time: 14:15 [facility] 08/18 12:50 Order name: NT PRO-BNP; Complete Time: 14:15 [facility] 08/18 12:50 Order name: PT-INR; Complete Time: 14:15 [facility] 08/18 12:50 Order name: Troponin (emerg Dept Use Only); Complete Time: 14:15 [facility] 08/18 12:50 Order name: Lipase; Complete Time: 14:15 [facility] 08/18 12:50 Order name: Urine Culture [facility] 08/18 14:29 Order name: Blood Culture Adult (2) [facility] 08/18 14:29 Order name: Blood Culture [facility] 08/18 14:55 Order name: Urine Dipstick-Ancillary [facility] 08/18 15:47 Order name: CREATININE WHOLE BLOOD [facility] 08/18 12:50 Order name: XRAY Chest (1 view) [facility] 08/18 12:50 Order name: EKG; Complete Time: 12:51 [facility] 08/18 12:50 Order name: Cardiac monitoring; Complete Time: 13:41 [facility] 08/18 12:50 Order name: EKG - Nurse/Tech; Complete Time: 13:42 [facility] 08/18 12:50 Order name: US Abdomen Limited; Complete Time: 14:15 [facility] 08/18 12:50 Order name: CT Aorta for Dissection; Complete Time: 14:39 [facility] 08/18 16:15 Order name: Diet Heart Healthy; Complete Time: 16:16 [facility] 08/18 17:56 Order name: SARS-COV-2 RT PCR [facility] 08/18 12:50 Order name: IV Saline Lock; Complete Time: 13:42 [facility] 08/18 12:50 Order name: Labs collected and sent; Complete Time: 13:42 [facility] 08/18 12:50 Order name: O2 Per Protocol; Complete Time: 13:42 [facility] 08/18 12:50 Order name: O2 Sat Monitoring; Complete Time: 13:41 [facility] 08/18 12:50 Order name: Urine Dipstick-Ancillary (obtain specimen); Complete Time: 15:10 [facility] Administered Medications: 13:40 Drug: NS 0.9% 500 ml Route: IV; Rate: bolus; Site: left antecubital; ca1 14:00 Follow up: Response: No adverse reaction; IV Status: Completed infusion; IV Intake: ca1 500ml 13:40 Drug: Zofran (Ondansetron) 4 mg Route: IVP; Site: left antecubital; ca1 14:30 Follow up: Response: No adverse reaction; Nausea is decreased ca1 13:42 Drug: morphine 2 mg {Note: rass 0.} Route: IVP; Site: left antecubital; ca1 14:30 Follow up: Response: No adverse reaction; Pain is decreased; RASS: Alert and Calm (0) ca1 13:44 Drug: Pepcid (famotidine) 20 mg Route: IVP; Site: left antecubital; ca1 14:30 Follow up: Response: No adverse reaction ca1 13:50 Drug: Rocephin (cefTRIAXone) 1 grams Route: IV; Rate: per protocol; Site: left ca1 antecubital; 14:30 Follow up: Response: No adverse reaction; IV Status: SLow IVP per pharmacy protocol ca1 14:44 Not Given (Duplicate Order): NS 0.9% 1000 ml IV at 125 ml/hr continuous cam 15:02 Drug: Zosyn (piperacillin-tazobactam) 3.375 grams Route: IVPB; Infused Over: 60 mins; ca1 Site: left antecubital; 16:00 Follow up: Response: No adverse reaction; IV Status: Completed infusion; IV Intake: ca1 100ml 16:01 Drug: NS 0.9% with KCl 20 mEq/L 1000 ml Route: IV; Rate: 125 ml/hr; Site: left ca1 antecubital; 16:32 Follow up: Response: No adverse reaction; IV Status: Infusion continued upon admission ca1 Disposition: 08/18/20 14:41 Hospitalization ordered by Umair Covington for Inpatient Admission. Preliminary diagnosis are Abdominal tenderness, Cholelithiasis, Cholecystitis, Hypokalemia. - Bed requested for Telemetry/MedSurg (Inpatient). - Status is Inpatient Admission. fu - Condition is Stable. - Problem is new. - Symptoms have improved. Signatures: Dispatcher [employer] EDMS Suhas Valdivia MD MD cha Williams, Irene, RN RN iw Umadhay, Felix, RN RN fu Botello, Elizabeth eb Acob, Cheryl RN RN ca1 Corrections: (The following items were deleted from the chart) 10:32 10:31 PSHx: Thyroidectomy; iw iw 15:34 14:41 Hospitalization Ordered by Jeffrey Echeverria DO for Inpatient Admission. Preliminary cam diagnosis is Abdominal tenderness; Cholelithiasis; Cholecystitis; Hypokalemia. Bed requested for Telemetry/MedSurg (Inpatient). Status is Inpatient Admission. Condition is Stable. Problem is new. Symptoms have improved. cam 16:58 14:44 CORONAVIRUS+MR.LAB.BRZ ordered. EDMS EDMS 18:47 15:34 08/18/2020 14:41 Hospitalization Ordered by Umair Covington MD for Inpatient eb Admission. Preliminary diagnosis is Abdominal tenderness; Cholelithiasis; Cholecystitis; Hypokalemia. Bed requested for Telemetry/MedSurg (Inpatient). Status is Inpatient Admission. Condition is Stable. Problem is new. Symptoms have improved. cam 20:53 18:47 08/18/2020 14:41 Hospitalization Ordered by Umair Covington MD for Inpatient fu Admission. Preliminary diagnosis is Abdominal tenderness; Cholelithiasis; Cholecystitis; Hypokalemia. Bed requested for Telemetry/MedSurg (Inpatient). Status is Inpatient Admission. Condition is Stable. Problem is new. Symptoms have improved. eb
--- NOTE | 2020-08-18 14:41 | ER ---
Nurse's Notes [facility] Name: Cortney Orozco Age: 89 yrs Sex: Female : 1930 Arrival Date: 08/18/2020 Time: 10:08 Bed 24 Private MD: Diagnosis: Abdominal tenderness;Cholelithiasis;Cholecystitis;Hypokalemia Presentation: 08/18 10:28 Chief complaint: Patient's son or daughter states: woke up with a bad pain in RUQ, iw started a couple days ago, worse today, denies n/v/d denies urinary s/s. Coronavirus screen: At this time, the client does not indicate any symptoms associated with coronavirus-19. Ebola Screen: Patient negative for fever greater than or equal to 101.5 degrees Fahrenheit, and additional compatible Ebola Virus Disease symptoms Patient denies exposure to infectious person. Patient denies travel to an Ebola-affected area in the 21 days before illness onset. No symptoms or risks identified at this time. Initial Sepsis Screen: Does the patient meet any 2 criteria? No. Patient's initial sepsis screen is negative. Does the patient have a suspected source of infection? No. Patient's initial sepsis screen is negative. Risk Assessment: Do you want to hurt yourself or someone else? Patient reports no desire to harm self or others. Onset of symptoms was August 16, 2020. 10:28 Method Of Arrival: Wheelchair iw 10:28 Acuity: VITALIY 3 iw Historical: - Allergies: 10:31 No Known Allergies; iw - PMHx: 10:31 High Cholesterol; history of blood clot; Hypertension; iw - PSHx: 10:32 left eye; biopsy thyroid; iw - Immunization history:: Client reports having NOT received the Covid vaccine. - Social history:: Smoking status: Patient denies any tobacco usage or history of. - Family history:: not pertinent. Screenin:38 Abuse screen: Denies threats or abuse. Denies injuries from another. Nutritional iw screening: No deficits noted. Tuberculosis screening: No symptoms or risk factors identified. Fall Risk IV access (20 points). Assessment: 12:00 General: Appears in no apparent distress. Behavior is calm, cooperative. Pain: iw Complains of pain in right upper quadrant and right lower quadrant Pain currently is 6 out of 10 on a pain scale. Neuro: Level of Consciousness is awake, alert, obeys commands, Oriented to person, place, time, situation, Moves all extremities. Full function. Cardiovascular: Patient's skin is warm and dry. Respiratory: Respiratory effort is even, unlabored, Respiratory pattern is regular. GI: Reports upper abdominal pain. Derm: Skin is healthy with good turgor. 13:00 Reassessment: Patient appears in no apparent distress at this time. Patient and/or ca1 family updated on plan of care and expected duration. Pain level reassessed. Patient is alert, oriented x 3, equal unlabored respirations, skin warm/dry/pink. 13:08 Reassessment: at bedside. ca1 14:00 Reassessment: Patient appears in no apparent distress at this time. Patient and/or ca1 family updated on plan of care and expected duration. Pain level reassessed. Patient is alert, oriented x 3, equal unlabored respirations, skin warm/dry/pink. 15:00 Reassessment: Patient appears in no apparent distress at this time. Patient and/or ca1 family updated on plan of care and expected duration. Pain level reassessed. Patient is alert, oriented x 3, equal unlabored respirations, skin warm/dry/pink. 16:00 Reassessment: Patient appears in no apparent distress at this time. Patient and/or ca1 family updated on plan of care and expected duration. Pain level reassessed. Patient is alert, oriented x 3, equal unlabored respirations, skin warm/dry/pink. 16:32 Reassessment: Dr. Echeverria at bedside. ca1 17:00 Reassessment: Patient appears in no apparent distress at this time. Patient and/or ca1 family updated on plan of care and expected duration. Pain level reassessed. Patient is alert, oriented x 3, equal unlabored respirations, skin warm/dry/pink. 18:00 Reassessment: Patient appears in no apparent distress at this time. Patient is alert, ca1 oriented x 3, equal unlabored respirations, skin warm/dry/pink. 19:04 Reassessment: Patient appears in no apparent distress at this time. Patient is alert, ca1 oriented x 3, equal unlabored respirations, skin warm/dry/pink. 19:50 Reassessment: Patient appears in no apparent distress at this time. Patient and/or fu family updated on plan of care and expected duration. Pain level reassessed. Patient is alert, oriented x 3, equal unlabored respirations, skin warm/dry/pink. Patient denies pain at this time. Vital Signs: 10:28 BP 129 / 73; Pulse 73; Resp 16; Temp 97.1; Pulse Ox 100% on R/A; Weight 79.38 kg; iw Height 5 ft. 4 in. (162.56 cm); Pain 8/10; 13:00 BP 142 / 78; Pulse 72; Resp 16 S; Pulse Ox 100% on R/A; ca1 14:00 BP 138 / 82; Pulse 62; Resp 19 S; Pulse Ox 100% on R/A; ca1 15:00 BP 143 / 70; Pulse 68; Resp 20 S; Pulse Ox 100% on R/A; ca1 16:00 BP 135 / 64; Pulse 62; Resp 18 S; Pulse Ox 100% on R/A; ca1 17:00 BP 137 / 72; Pulse 59; Resp 18 S; Pulse Ox 99% on R/A; ca1 18:10 BP 134 / 91; Pulse 90; Resp 18; Pulse Ox 94% on R/A; ca1 19:48 BP 135 / 87; Pulse 66; Resp 20; Temp 98.2; Pulse Ox 100% on R/A; Pain 0/10; fu 10:28 Body Mass Index 30.04 (79.38 kg, 162.56 cm) iw ED Course: 10:08 Patient arrived in ED. wm 10:30 Triage completed. iw 10:31 Arm band placed on. iw 11:57 Suhas Valdivia MD is Attending Physician. cam 12:55 Char Alexis, LISA is Primary Nurse. ca1 13:09 Patient has correct armband on for positive identification. Placed in gown. Bed in low ca1 position. Call light in reach. Pulse ox on. NIBP on. Warm blanket given. 13:29 US Abdomen Limited In Process Unspecified. EDMS 13:35 Initial lab(s) drawn, by me, sent to lab. Inserted saline lock: 22 gauge in left ca1 antecubital area, using aseptic technique. Blood collected. 13:35 EKG done, by ED staff, reviewed by Suhas Valdivia MD. ca1 14:13 CT Aorta for Dissection In Process Unspecified. EDMS 14:40 Jeffrey Echeverria DO is Hospitalizing Provider. cam 14:55 XRAY Chest (1 view) In Process Unspecified. EDMS 15:34 Umair Covington MD is Hospitalizing Provider. cam 18:00 No provider procedures requiring assistance completed. Patient admitted, IV remains in ca1 place. 19:00 Report given to LISA Latif. ca1 Administered Medications: 13:40 Drug: NS 0.9% 500 ml Route: IV; Rate: bolus; Site: left antecubital; ca1 14:00 Follow up: Response: No adverse reaction; IV Status: Completed infusion; IV Intake: ca1 500ml 13:40 Drug: Zofran (Ondansetron) 4 mg Route: IVP; Site: left antecubital; ca1 14:30 Follow up: Response: No adverse reaction; Nausea is decreased ca1 13:42 Drug: morphine 2 mg {Note: rass 0.} Route: IVP; Site: left antecubital; ca1 14:30 Follow up: Response: No adverse reaction; Pain is decreased; RASS: Alert and Calm (0) ca1 13:44 Drug: Pepcid (famotidine) 20 mg Route: IVP; Site: left antecubital; ca1 14:30 Follow up: Response: No adverse reaction ca1 13:50 Drug: Rocephin (cefTRIAXone) 1 grams Route: IV; Rate: per protocol; Site: left ca1 antecubital; 14:30 Follow up: Response: No adverse reaction; IV Status: SLow IVP per pharmacy protocol ca1 14:44 Not Given (Duplicate Order): NS 0.9% 1000 ml IV at 125 ml/hr continuous cam 15:02 Drug: Zosyn (piperacillin-tazobactam) 3.375 grams Route: IVPB; Infused Over: 60 mins; ca1 Site: left antecubital; 16:00 Follow up: Response: No adverse reaction; IV Status: Completed infusion; IV Intake: ca1 100ml 16:01 Drug: NS 0.9% with KCl 20 mEq/L 1000 ml Route: IV; Rate: 125 ml/hr; Site: left ca1 antecubital; 16:32 Follow up: Response: No adverse reaction; IV Status: Infusion continued upon admission ca1 Intake: 14:00 IV: 500ml; Total: 500ml. ca1 16:00 IV: 100ml; Total: 600ml. ca1 Outcome: 14:41 Decision to Hospitalize by Provider. cam 20:45 Admitted to Med/surg accompanied by nurse, via stretcher, room 204, Report called to ida Lieberman RN 20:45 Condition: stable 20:45 Instructed on the need for admit. 20:53 Patient left the ED. ida Signatures: Dispatcher [employer] EDMS Suhas Valdivia MD MD cha Williams, Irene, RN LISA Salomon Zhou RN Char Pimentel RN RN ca1 Marsh, Wendy Corrections: (The following items were deleted from the chart) 10:32 10:31 PSHx: Thyroidectomy; iw iw 21:38 13:09 Patient has correct armband on for positive identification. Placed in gown. Bed ca1 in low position. Call light in reach. ca1
[2020-08-18] MEDS ORDERED: FAMOTIDINE 20 MG/2 ML VIAL IV ONE (14:53)
[2020-08-18] MEDS ORDERED: NA CHLORIDE 0.9% 1,000 ML ONE (14:53)
[2020-08-18] MEDS ORDERED: CEFTRIAXONE/SWI 1gm 1 GM/10 ML SYR ONE (14:53)
[2020-08-18] MEDS ORDERED: ONDANSETRON 4 MG/2 ML VIAL ONE (14:53)
[2020-08-18] MEDS ORDERED: PIPER/TAZO/NS 3.375gm 3.375 GM/100 ML BAG ONE (14:53)
[2020-08-18] MEDS ORDERED: MORPHINE 2 MG/ML SYR ONE (14:53)
[2020-08-18 14:55] LABS: Urine Blood Negative (Negative); Urine Glucose Negative (Negative); Urine Protein Negative (Negative)
--- NOTE | 2020-08-18 15:08 | RAD REPORT ---
EXAM DESCRIPTION: RAD - Chest Single View - 08/18/2020 2:55 pm CLINICAL HISTORY: Cough;Chest pain Chest pain. COMPARISON: Angio Aorta For Dissection dated 08/18/2020 FINDINGS: Portable technique limits examination quality. The lungs are grossly clear. The heart is moderately enlarged in size. No displaced fractures. IMPRESSION: No acute intrathoracic process suspected.
--- NOTE | 2020-08-18 17:41 | P.HP ---
Certification for Inpatient Patient admitted to: Inpatient With expected LOS: >2 Midnights Patient will require the following post-hospital care: None Practitioner: I am a practitioner with admitting privileges, knowledge of patient current condition, hospital course, and medical plan of care. Services: Services provided to patient in accordance with Admission requirements found in Title 42 Section 412.3 of the Code of Federal Regulations Patient History Date of Service: 08/18/20 Primary Care Provider: Dr. Valadez([place], [place]); Cardiology-Dr. Peter Reason for admission: Right upper quadrant abdominal pain History of Present Illness: 89-year-old female with history of hypertension on chronic anti coagulation therapy for prior blood clot. Patient presented with right upper quadrant abdominal pain. Pain has been present for the past 4 days. No significant nausea vomiting noted. Increasing pain radiating to the back was noted today. Pain did not improved. She came to the ER for further evaluation. She denied any chest pain, dizziness and, headaches. In the ER vital signs stable. White count 10, hemoglobin 13.9, platelet count 247. Sodium 139, potassium 3.1. BUN and creatinine within normal range. Troponin unremarkable. Urinalysis negative. INR 2.2. CT scan revealed no acute aortic finding. Mild pneumobilia seen on the left lobe with the liver. Cholelithiasis noted. Abdominal ultrasound showed no common bile duct dilation. Multiple cholelithiasis noted. Patient admitted for further evaluation and treatment. Home medications list reviewed: Yes - Past Medical/Surgical History Diabetic: No -: Hypertension -: History of blood clot currently on Xarelto -: Hyperlipidemia Past Surgical History: Reviewed- Non-Contributory Psychosocial/ Personal History: Patient lives at home. She is a . - Family History Family History: Reviewed- Non-Contributory - Social History Smoking Status: Never smoker Alcohol use: No CD- Drugs: No Caffeine use: No Place of Residence: Home Review of Systems General: Weakness, As per HPI Eyes: Unremarkable ENT: Unremarkable Respiratory: Unremarkable Cardiovascular: Unremarkable Gastrointestinal: Abdominal Pain, As per HPI Musculoskeletal: Unremarkable Integumentary: Unremarkable Neurological: Unremarkable Lymphatics: Unremarkable Physical Examination - Physical Exam General: Alert, In no apparent distress, Oriented x3, Cooperative HEENT: Atraumatic, Normocephalic, Mucous membr. moist/pink Neck: Supple Respiratory: Clear to auscultation bilaterally, Normal air movement Cardiovascular: Normal pulses, Regular rate/rhythm Gastrointestinal: Normal bowel sounds, Soft and benign, Non-distended, No masses, No rebound, No guarding, Tenderness (Pain to the right upper quadrant noted) Musculoskeletal: No erythema, No tenderness, No warmth Integumentary: No tenderness/swelling, No erythema, No warmth, No cyanosis Neurological: Normal speech, Normal strength at 5/5 x4 extr, Normal tone, Normal affect - Studies Laboratory Data (last 24 hrs) 08/18/20 13:35: PT 26.1 H, INR 2.25 08/18/20 13:35: WBC 10.20, Hgb 13.9, Hct 41.9, Plt Count 247 08/18/20 13:35: Sodium 139, Potassium 3.1 L, BUN 11, Creatinine 0.68, Glucose 123 H, Magnesium 2.4, Total Bilirubin 0.9, AST 22, ALT 28, Alkaline Phosphatase 123 H, Lipase 55 L Assessment and Plan - Plan Impression: Right upper quadrant abdominal pain secondary to cholecystitis with cholelithiasis Hypertension Hyperlipidemia GERD History of blood clot on Xarelto Plan: Right upper quadrant abdominal pain secondary to cholecystitis with cholelithiasis: Patient admitted for further evaluation and treatment. Will continue IV fluids. Keep the patient NPO at this time. Will start IV Zosyn. Blood cultures obtained. Will provide medication for pain. Patient has been taking Xarelto. In preparation for surgery will hold Xarelto and provide SCDs. Spoke with surgery who will evaluate the patient. Surgery desires cardiac clearance. Cardiology consulted to further evaluate. Patient is seen by Cardiology as an outpatient in [place]. May need to wait at least 48 hr prior to surgery since the patient was on Xarelto. Will discuss further with cardiology and surgery. Hypertension: Restart home medications of lisinopril, Norvasc, and carvedilol. Hyperlipidemia: Restart Lipitor GERD: Will provide medication History of blood clot on Xarelto: Hold Xarelto at this time in preparation for likely surgical intervention. Will discuss with surgery and Cardiology. DVT prophylaxis: SCDs for now Code status: Full code Advanced care planning: Patient desires to go home at discharge. Discharge Plan: Home Plan to discharge in: Greater than 2 days - Advance Directives Does patient have a Living Will: No Does patient have a Durable POA for Healthcare: No - Code Status/Comfort Care Code Status Assessed: Yes (Patient is full code) Code Status: Full Code Time Spent Managing Pts Care (In Minutes): 55
[2020-08-18] MEDS ORDERED: MORPHINE 2 MG/ML SYR IV PRN (21:14)
[2020-08-18] MEDS ORDERED: SODIUM CHLORIDE 0.9% 10ML INJ IV PRN (21:14)
[2020-08-18] MEDS ORDERED: ACETAMINOPHEN 500 MG TAB PO PRN (21:14)
[2020-08-18] MEDS ORDERED: ACETAMINOPHEN 650MG/RECT SUPP PR PRN (21:14)
[2020-08-18] MEDS ORDERED: ONDANSETRON 4 MG/2 ML VIAL IV PRN (21:14)
[2020-08-18] MEDS: PIPER/TAZO/NS 2.25gm 2.25 GM/50 ML BAG IVPB SCH (22:00)
[2020-08-18] MEDS: ATORVASTATIN 20 MG TAB PO SCH (22:43)
[2020-08-18] MEDS: D5 0.9 NS 1,000 ML IV SCH (22:44)
[2020-08-18] MEDS ORDERED: PIPER/TAZO/NS 2.25gm 4.50 GM/100 ML BAG ONE (23:34)
[2020-08-19] MEDS ORDERED: PIPER/TAZO/NS 3.375gm 3.375 GM/100 ML BAG IVPB SCH (01:00)
[2020-08-19] MEDS: PIPER/TAZO/NS 2.25gm 2.25 GM/50 ML BAG IVPB SCH ×4 (04:00→22:13)
[2020-08-19] MEDS: METOPROLOL XL 100 MG TAB PO SCH ×2 (06:00→06:27)
--- NOTE | 2020-08-19 06:02 | P.PN ---
Subjective Date of Service: 08/19/20 Primary Care Provider: Dr. Valadez([place], [place]); Cardiology-Dr. Peter Chief Complaint: Right upper quadrant abdominal pain Subjective: Improving, Doing well Physical Examination - Vital Signs Temperature: 97.6 F Blood Pressure: 151/69 Pulse: 56 Respirations: 18 Pulse Ox (%): 98 - Studies Laboratory Data (last 24 hrs) 08/18/20 13:35: PT 26.1 H, INR 2.25 08/18/20 13:35: WBC 10.20, Hgb 13.9, Hct 41.9, Plt Count 247 08/18/20 13:35: Sodium 139, Potassium 3.1 L, BUN 11, Creatinine 0.68, Glucose 123 H, Magnesium 2.4, Total Bilirubin 0.9, AST 22, ALT 28, Alkaline Phosphatase 123 H, Lipase 55 L Assessment & Plan Discharge Plan: Home Plan to discharge in: 48 Hours Physician Review Additional Text: CT Scan: FINDINGS: A left aortic arch is present with normal branching pattern of the great vessels.No acute aortic finding is seen such as aneurysm, penetrating ulc er or dissection. The celiac axis, SMA, ALEJANDRO and renal arteries are patent. No evidence of pulmonary embolism. Mild scarring is present in both lung bases. No focal infiltrate seen. Mild pneumobilia has developed in the left lobe of the liver. Mild fatty liver infiltration is seen.Numerous gallstones are present gallbladder.The spleen, pancreas, adrenal glands and kidneys are within normal limits for arterial phase imaging. No bowel obstruction, free fluid or abscess.Prominent colonic diverticulosis without diverticulitis.No pathologic enlarged lymphadenopathy identified.Normal appendix. Moderate thoracic and lumbar spine degenerative changes. IMPRESSION: No acute aortic finding is demonstrated. Mild pneumobilia is seen in the left lobe liver without clear etiology. 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 Cholelithiasis. ABUS: FINDINGS: The gallbladder demonstrates extensive cholelithiasis. No pericholecystic fluid or gallbladder wall thickening. The common bile duct is not dilated. The liver demonstrates no findings of intrahepatic biliary dilatation. IMPRESSION: Extensive cholelithiasis. Physical Exam: General: Alert, In no apparent distress, Oriented x3, Cooperative HEENT: Atraumatic, Normocephalic, Mucous membr. moist/pink Neck: Supple Respiratory: Clear to auscultation bilaterally, Normal air movement Cardiovascular: Normal pulses, Regular rate/rhythm Gastrointestinal: Normal bowel sounds, Soft and benign, patient reports improvement in pain to the right upper quadrant. No significant rebound or pain noted. Musculoskeletal: No erythema, No tenderness, No warmth Integumentary: No tenderness/swelling, No erythema, No warmth, No cyanosis Neurological: Normal speech, Normal strength at 5/5 x4 extr, Normal tone, Normal affect Impression: Right upper quadrant abdominal pain secondary to cholecystitis with cholelithiasis Hypertension Hyperlipidemia GERD History of blood clot on Xarelto Plan: Right upper quadrant abdominal pain secondary to cholecystitis with cholelithiasis: Patient has done well overnight. Continue IV fluids and IV Zosyn. Spoke with cardiology. Patient cleared by cardiology for surgical intervention. Family at bedside. Family desired nonsurgical option due to her age and risk factors. Told family that I would discuss plan of care with surgery. I will discuss with surgery today concerning plan of care. Consider nonsurgical option at this time but if pain increases or persists patient may require surgical intervention. Await recommendations by surgery. Hypertension: Continue with lisinopril, Norvasc, and carvedilol. Hyperlipidemia: Continue with Lipitor GERD: Continue with medication History of blood clot on Xarelto: Continue to hold Xarelto at this time in preparation for likely surgical intervention. Will discuss with surgery and Cardiology. DVT prophylaxis: SCDs for now Code status: Full code Advanced care planning: Patient desires to go home at discharge. Time Spent Managing Pts Care (In Minutes): 55
[2020-08-19 06:37] LABS: Absolute Lymphocytes (CBC) 3.2 K/uL (0.7-4.9); Basophils % 0.6 % (0-1.3); Hematocrit 35.7 % (36.0-45.0); Lymphocytes % 34.4 % (15.3-44.8); MPV 8.4 fL (7.6-11.3); RBC Red Blood Cell Count 4.23 M/uL (3.86-4.86)
[2020-08-19 06:38] LABS: Protime INR 1.64
[2020-08-19 06:48] LABS: BUN Blood Urea Nitrogen 7 mg/dL (7-18); Bicarbonate 29 mmol/L (21-32); Glucose Level 121 mg/dL (74-106); Magnesium 2.1 mg/dL (1.8-2.4); Sodium Level 142 mmol/L (136-145)
--- NOTE | 2020-08-19 06:58 | EKG ---
Test Date: 2020-08-18 Test Time: 13:24:29 Tool Maker Apprentice: KIRAN MEASUREMENT RESULTS: Intervals: Rate: 61 MO: 158 QRSD: 94 QT: 448 QTc: 450 Quail: P: 43 MO: 158 QRS: 17 T: 17 INTERPRETIVE STATEMENTS: Normal sinus rhythm Normal ECG No previous ECG available for comparison Electronically Signed On 08-19-20 06:56:25 CDT by Gianni Will
[2020-08-19] MEDS ORDERED: POTASSIUM CL SA 10 MEQ TAB PO ONE ×2 (09:00→21:00)
--- NOTE | 2020-08-19 09:47 | CON ---
Date of Consultation: 08/18/2020 History Of Present Illness: This is the case of an 89-year-old patient, who comes to us with an epig astric right upper quadrant pain after eating. No nausea. No vomiting. She came to the ER, diagnos ed with gallbladder disease. She also has chronic anticoagulation for cardiac disease. The patient was admitted to the hospital and a surgical consult was obtained. She denies any dysuria, hematuria, hematochezia, melena. Denies any recent traveling out of the country. Denies any family member sic k at home. She states on and off she has this abdominal pain, but she improved on her own. Past Medical History: Includes hypertension, history of heart disease, history of a blood clot, on a nticoagulation. Past Surgical History: Unknown. Social History: The patient denies any smoking or any use of alcohol. Family History: Noncontributory. Medications: Reviewed including Xarelto. Review of Systems: See H and P. Ten points are otherwise unremarkable, unable to know when was her last colonoscopy. Physical Examination: General: The patient is awake and alert. HEENT: Pupils are equal and reactive. Anicteric. Neck: Supple. Chest: Clear. Heart: S1, S2. Abdomen: Soft and depressible. Mild epigastric tenderness. No Keane signs at this moment. She fe els better. Pelvic: Deferred. Breasts: Deferred. Rectal: Deferred. Extremities: Good capillary refill. Laboratory Data: Blood work shows WBC count of 10.2 with a hemoglobin of 13.9. INR is 2.25. Potass ium is 3.1. Abdomen ultrasound and CT shows extensive cholelithiasis and mild pneumobilia, cholelith iasis, no pericholecystic fluid. Assessment: This is an 89-year-old patient with history of heart disease, pulmonary embolism, is on anticoagulation, comes to us with abdominal pain, although this pain apparently subsided. She was fu lly explained the options of laparoscopic possible open cholecystectomy with benefits, alternatives, and risks including, but not limited to infection, bleeding, damage to adjacent structures, anesthesi a complication, choledocholithiasis, bile leak, pancreatitis, MT, even . She also understands t his may not relieve the symptoms. She might need more than one surgical intervention. The patient's family is at bedside. We discussed with them the pros and cons of surgical intervention. They are not completely decided on the surgery yet. We discussed ways how to improve her diet, but at the kalia e time, we have some pathology in that area and we have to offer the surgical options. We are going to get cardiac clearance due to history of heart disease and also anticoagulation, and Dr. Echeverria is already working on her anticoagulation too. Once we have this clear up, then they will have to make the decision on if we are going to proceed with surgery or do this electively depends how she feels. VALORIE/NIGEL Voice ID: [id number] Report ID: [id number]
[2020-08-19] MEDS: PANTOPRAZOLE 40 MG INJ IVP SCH (10:23)
[2020-08-19] MEDS: BENAZEPRIL 20 MG TAB PO SCH (10:23)
[2020-08-19] MEDS: AMLODIPINE 10 MG TAB PO SCH (10:23)
[2020-08-19] MEDS: D5 0.9 NS 1,000 ML IV SCH (10:24)
[2020-08-19] MEDS: ATORVASTATIN 20 MG TAB PO SCH (20:42)
[2020-08-20] MEDS: D5 0.9 NS 1,000 ML IV SCH (04:18)
[2020-08-20] MEDS: PIPER/TAZO/NS 2.25gm 2.25 GM/50 ML BAG IVPB SCH ×4 (04:19→21:43)
[2020-08-20] MEDS: METOPROLOL XL 100 MG TAB PO SCH (05:31)
--- NOTE | 2020-08-20 06:01 | P.DS ---
Admission Date: 08/18/20 Discharge Date: 08/20/20 Primary Care Provider: Dr. Valadez([place], [place]); Cardiology-Dr. Peter Disposition: ROUTINE DISCHARGE Reason for Admission: Right upper quadrant abdominal pain Consultations: Surgery-Dr. Power Cardiology-Dr. Will Procedures: CT Scan: FINDINGS: A left aortic arch is present with normal branching pattern of the great vessels.No acute aortic finding is seen such as aneurysm, penetrating ulcer or dissection. The celiac axis, SMA, ALEJANDRO and renal arteries are patent. No evidence of pulmonary embolism. Mild scarring is present in both lung bases. No focal infiltrate seen. Mild pneumobilia has developed in the left lobe of the liver. Mild fatty liver infiltration is seen.Numerous gallstones are present gallbladder.The spleen, pancreas, adrenal glands and kidneys are within normal limits for arterial phase imaging. No bowel obstruction, free fluid or abscess.Prominent colonic diverticulosis without diverticulitis.No pathologic enlarged lymphadenopathy identified.Normal appendix. Moderate thoracic and lumbar spine degenerative changes. IMPRESSION: No acute aortic finding is demonstrated. Mild pneumobilia is seen in the left lobe liver without clear etiology. 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 Cholelithiasis. ABUS: FINDINGS: The gallbladder demonstrates extensive cholelithiasis. No pericholecystic fluid or gallbladder wall thickening. The common bile duct is not dilated. The liver demonstrates no findings of intrahepatic biliary dilatation. IMPRESSION: Extensive cholelithiasis. Medical Problem List: Right upper quadrant abdominal pain secondary to cholecystitis with cholelithiasis Hypertension Hyperlipidemia GERD History of blood clot on Xarelto Brief History of Present Illness: 89-year-old female with history of hypertension on chronic anti coagulation therapy for prior blood clot. Patient presented with right upper quadrant abdominal pain. Pain has been present for the past 4 days. No significant nausea vomiting noted. Increasing pain radiating to the back was noted today. Pain did not improved. She came to the ER for further evaluation. She denied any chest pain, dizziness and, headaches. In the ER vital signs stable. White count 10, hemoglobin 13.9, platelet count 247. Sodium 139, potassium 3.1. BUN and creatinine within normal range. Troponin unremarkable. Urinalysis negative. INR 2.2. CT scan revealed no acute aortic finding. Mild pneumobilia seen on the left lobe with the liver. Cholelithiasis noted. Abdominal ultrasound showed no common bile duct dilation. Multiple cholelithiasis noted. Patient admitted for further evaluation and treatment. Hospital Course: Plan: Right upper quadrant abdominal pain secondary to cholecystitis with cholelithiasis: Patient has done well overnight. Continue IV fluids and IV Zosyn. Spoke with cardiology. Patient cleared by cardiology for surgical intervention. Family at bedside. Family desired nonsurgical option due to her age and risk factors. Told family that I would discuss plan of care with surgery. I will discuss with surgery today concerning plan of care. Consider nonsurgical option at this time but if pain increases or persists patient may require surgical intervention. Await recommendations by surgery. Hypertension: Continue with lisinopril, Norvasc, and carvedilol. Hyperlipidemia: Continue with Lipitor GERD: Continue with medication History of blood clot on Xarelto: Continue to hold Xarelto at this time in preparation for likely surgical intervention. Will discuss with surgery and Cardiology. DVT prophylaxis: SCDs for now Code status: Full code Advanced care planning: Patient desires to go home at discharge. Time Spent Managing Pts Care (In Minutes): 55 Vital Signs/Physical Exam: Temp Pulse Resp BP Pulse Ox 97.7 F 66 18 140/62 93 08/20/20 04:00 08/20/20 05:31 08/20/20 04:00 08/20/20 05:31 08/20/20 04:00 Laboratory Data at Discharge: WBC 9.40 K/uL (4.3-10.9) 08/19/20 06:16 Hgb 11.6 g/dL (12.0-15.0) L 08/19/20 06:16 Hct 35.7 % (36.0-45.0) L 08/19/20 06:16 Plt Count 238 K/uL (152-406) 08/19/20 06:16 PT 18.9 SECONDS (9.5-12.5) H 08/19/20 06:16 INR 1.64 08/19/20 06:16 Sodium 142 mmol/L (136-145) 08/19/20 06:16 Potassium 3.4 mmol/L (3.5-5.1) L 08/19/20 17:03 BUN 7 mg/dL (7-18) 08/19/20 06:16 Creatinine 0.62 mg/dL (0.55-1.3) 08/19/20 06:16 Glucose 121 mg/dL (74-106) H 08/19/20 06:16 Magnesium 2.1 mg/dL (1.8-2.4) 08/19/20 06:16 Total Bilirubin 0.9 mg/dL (0.2-1.0) 08/18/20 13:35 AST 22 U/L (15-37) 08/18/20 13:35 ALT 28 U/L (12-78) 08/18/20 13:35 Alkaline Phosphatase 123 U/L (45-117) H 08/18/20 13:35 Lipase 55 U/L (73-393) L 08/18/20 13:35 Home Medications: Amlodipine Besylate/Benazepril [Amlodipine-Benazepril 10-40 mg] 10 - 40 mg PO DAILY 08/18/20 Atorvastatin Calcium 20 mg PO DAILY 08/18/20 Losartan Potassium 50 mg PO DAILY 08/18/20 Metoprolol Succinate 100 mg PO DAILY 08/18/20 Potassium Oral Tab [Klor-Con 10 mEq Tab*] 10 meq PO BID 08/18/20 Rivaroxaban [Xarelto] 20 mg PO DAILY 08/18/20 hydroCHLOROthiazide [Hydrochlorothiazide] 25 mg PO DAILY 08/18/20 Followup: GARY VEGA [Primary Care Provider] -
[2020-08-20 06:35] LABS: Protime INR 1.6
[2020-08-20 06:38] LABS: Absolute Lymphocytes (CBC) 3.3 K/uL (0.7-4.9); Basophils % 0.7 % (0-1.3); Hematocrit 34.5 % (36.0-45.0); Lymphocytes % 38.4 % (15.3-44.8); MPV 8.7 fL (7.6-11.3)
[2020-08-20 06:51] LABS: BUN Blood Urea Nitrogen 4 mg/dL (7-18); Bicarbonate 28 mmol/L (21-32); Glucose Level 101 mg/dL (74-106); Potassium 3.2 mmol/L (3.5-5.1); Sodium Level 145 mmol/L (136-145)
[2020-08-20] MEDS: PANTOPRAZOLE 40 MG INJ IVP SCH (08:32)
--- NOTE | 2020-08-20 08:43 | P.PN ---
Subjective Date of Service: 08/20/20 Primary Care Provider: Dr. Valadez([place], [place]); Cardiology-Dr. Peter Chief Complaint: Right upper quadrant abdominal pain Subjective: Other (Patient had done well with her diet last night. But early this morning after she took 2 bites of breakfast she started to have some abdominal pain.) Physical Examination - Vital Signs Temperature: 97.7 F Blood Pressure: 140/62 Pulse: 66 Respirations: 18 Pulse Ox (%): 93 - Studies Microbiology Data (last 24 hrs): 08/18/20 14:51 Clean Catch Urine [place] Count - Final BETWEEN 10,000 & 100,000 CFU/ML 08/18/20 14:51 Clean Catch Urine - Final MIXED DON. Assessment & Plan Discharge Plan: Home Plan to discharge in: 24 Hours Physician Review Additional Text: CT Scan: FINDINGS: A left aortic arch is present with normal branching pattern of the great vessels.No acute aortic finding is seen such as aneurysm, penetrating ulcer or dissection. The celiac axis, SMA, ALEJANDRO and renal arteries are patent. No evidence of pulmonary embolism. Mild scarring is present in both lung bases. No focal infiltrate seen. Mild pneumobilia has developed in the left lobe of the liver. Mild fatty liver infiltration is seen.Numerous gallstones are present gallbladder.The spleen, pancreas, adrenal glands and kidneys are within normal limits for arterial phase imaging. No bowel obstruction, free fluid or abscess.Prominent colonic diverticulosis without diverticulitis.No pathologic enlarged lymphadenopathy identified.Normal appendix. Moderate thoracic and lumbar spine degenerative changes. IMPRESSION: No acute aortic finding is demonstrated. Mild pneumobilia is seen in the left lobe liver without clear etiology. 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 Cholelithiasis. ABUS: FINDINGS: The gallbladder demonstrates extensive cholelithiasis. No pericholecy stic fluid or gallbladder wall thickening. The common bile duct is not dilated. The liver demonstrates no findings of intrahepatic biliary dilatation. IMPRESSION: Extensive cholelithiasis. Physical Exam: General: Alert, In no apparent distress, Oriented x3, Cooperative HEENT: Atraumatic, Normocephalic, Mucous membr. moist/pink Neck: Supple Respiratory: Clear to auscultation bilaterally, Normal air movement Cardiovascular: Normal pulses, Regular rate/rhythm Gastrointestinal: When I examined patient before having breakfast this morning she was without significant pain. After breakfast she started to have right upper quadrant pain. Musculoskeletal: No erythema, No tenderness, No warmth Integumentary: No tenderness/swelling, No erythema, No warmth, No cyanosis Neurological: Normal speech, Normal strength at 5/5 x4 extr, Normal tone, Normal affect Impression: Right upper quadrant abdominal pain secondary to cholecystitis with cholel ithiasis Hypertension Hyperlipidemia GERD History of blood clot on Xarelto Plan: Right upper quadrant abdominal pain secondary to cholecystitis with cholelithi asis: Patient was given a trial of food as the patient and family did not want to proceed with surgical intervention. She did well overnight. This morning she was without significant abdominal pain, nausea and vomiting. But then she had 2 bites of food this morning. After breakfast, she started to have right upper quadrant abdominal pain. We will keep n.p.o. for now. Continue IV fluids and IV Zosyn. Await recommendations by surgery. Anticipate likely need for laparoscopic cholecystectomy. Chronic anticoagulation therapy currently on hold. Will adjust IV fluids. Await further recommendations by surgery. I will turn the service over to the hospital team tomorrow. I will go plan of care with him. Hypertension: Continue with lisinopril, Norvasc, and carvedilol. Hyperlipidemia: Continue with Lipitor GERD: Continue with medication History of blood clot on Xarelto: Continue to hold Xarelto at this time in preparation for likely surgical intervention. Xarelto can be restarted likely after surgical intervention. DVT prophylaxis: SCDs for now Code status: Full code Advanced care planning: Patient desires to go home at discharge. Time Spent Managing Pts Care (In Minutes): 55
[2020-08-20] MEDS: BENAZEPRIL 20 MG TAB PO SCH (09:00)
[2020-08-20] MEDS ORDERED: POTASSIUM CL SA 10 MEQ TAB PO ONE (09:00)
[2020-08-20] MEDS: AMLODIPINE 10 MG TAB PO SCH (09:00)
[2020-08-20] MEDS: D5 0.45 NS 1,000 ML IV SCH (09:16)
[2020-08-20] MEDS: KCL 20 MEQ/100 mL IVPB 20 MEQ/100 ML BAG IV SCH ×2 (13:00→14:15)
[2020-08-20] MEDS ORDERED: POTASSIUM 25 MEQ EFFERV TAB PO ONE ×2 (15:00→21:26)
[2020-08-20] MEDS: ATORVASTATIN 20 MG TAB PO SCH (20:39)
[2020-08-21] MEDS: PIPER/TAZO/NS 2.25gm 2.25 GM/50 ML BAG IVPB SCH ×4 (03:51→21:14)
[2020-08-21 04:23] LABS: Absolute Lymphocytes (CBC) 3.5 K/uL (0.7-4.9); Basophils % 0.8 % (0-1.3); Hematocrit 34.8 % (36.0-45.0); Lymphocytes % 35.9 % (15.3-44.8); MPV 8.2 fL (7.6-11.3); RBC Red Blood Cell Count 4.15 M/uL (3.86-4.86)
[2020-08-21 04:48] LABS: BUN Blood Urea Nitrogen 6 mg/dL (7-18); Bicarbonate 30 mmol/L (21-32); Glucose Level 102 mg/dL (74-106); Magnesium 2.1 mg/dL (1.8-2.4); Potassium 3.4 mmol/L (3.5-5.1); Sodium Level 142 mmol/L (136-145)
[2020-08-21] MEDS: METOPROLOL XL 100 MG TAB PO SCH (06:00)
[2020-08-21] MEDS: KCL 20 MEQ/100 mL IVPB 20 MEQ/100 ML BAG IV SCH ×2 (06:07→09:34)
[2020-08-21] MEDS: D5 0.45 NS 1,000 ML IV SCH (06:17)
[2020-08-21] MEDS: BENAZEPRIL 20 MG TAB PO SCH (08:49)
[2020-08-21] MEDS: AMLODIPINE 10 MG TAB PO SCH (08:49)
--- NOTE | 2020-08-21 09:16 | CON ---
Date of Consultation: 08/18/2020 Reason For Consultation: Cardiac clearance for cholecystectomy. History Of Present Illness: Ms. Orozco is an 89-year-old woman with a history of hypertension, dysl ipidemia, history of deep venous thrombosis, came in with cholelithiasis, has been seen by Dr. Melvin patino that is not a definitive plan for surgery, but nevertheless I was asked to see her just in case. She does not really have any cardiac history per se. Denied any chest pain, shortness of breath, PND , orthopnea, pedal edema, palpitations, or syncope. Past Medical History: Include hypertension, dyslipidemia, and DVT. Allergies: NONE. Review of Systems: Negative. Social History: Negative. Family History: Noncontributory. Physical Examination: Vital Signs: Stable. She was afebrile. HEENT: Negative. Neck: Supple without any bruit, lymphadenopathy, JVD, or thyromegaly. Chest: Clear to auscultation and percussion. Cardiac: Revealed a regular rhythm and rate with an aortic sclerosis murmur. No gallops or rubs. Abdomen: Benign. Extremities: Revealed no clubbing, cyanosis, or edema. Diagnostic Data: Normal except for INR of 2.25 and potassium of 3.1. Chest x-ray was negative. Abd ominal CT showed cholelithiasis. Impression And Plan: Ms. Orozco is 89, has a history of hypertension, dyslipidemia, deep venous thr ombosis on chronic Xarelto therapy. No cardiac symptoms. No clinical findings of congestive heart f ailure or coronary artery disease and I think she is clear for surgery if the surgery is going to [facility]. Her INR is elevated because of her Xarelto. Her potassium is low because of her hydrochlorothi azide. I will continue her present regimen. Her blood pressure is well controlled and so her dyslip idemia. We will be available for questions if the need arises. ARETHA/NIGEL Voice ID: [id number] Report ID: [id number]
[2020-08-21] MEDS: PANTOPRAZOLE 40 MG INJ IVP SCH (09:38)
[2020-08-21 09:48] LABS: Albumin 2.8 g/dL (3.4-5.0); Bilirubin Direct 0.3 mg/dL (0-0.2); Bilirubin Total 1.1 mg/dL (0.2-1.0); Protein, Total 6.6 g/dL (6.4-8.2)
[2020-08-21] MEDS ORDERED: Ringers Lactate 1,000 ML IV ONE (14:05)
[2020-08-21] MEDS ORDERED: ROCURONIUM 50 MG/5 ML VIAL IV ONE (15:54)
[2020-08-21] MEDS ORDERED: FENTANYL CITR 100 MCG/2 ML ONE (15:54)
[2020-08-21] MEDS ORDERED: propofoL 200 MG/20 ML VIAL IV ONE (15:54)
[2020-08-21] MEDS ORDERED: LIDOCAINE 1% MPF 5 ML VIAL ONE (15:54)
[2020-08-21] MEDS ORDERED: dexAMETHasone 10 MG/ML VIAL ONE (16:17)
[2020-08-21] MEDS ORDERED: KETOROLAC 30 MG/ML INJ ONE (16:17)
[2020-08-21] MEDS ORDERED: ONDANSETRON 4 MG/2 ML VIAL ONE (16:20)
[2020-08-21] MEDS ORDERED: GLYCOPYRROLATE 0.2 MG/ML SYR ONE (16:41)
[2020-08-21] MEDS ORDERED: NEOSTIGMINE 1 MG/ML -5 ML ONE (16:45)
[2020-08-21] MEDS: MORPHINE 4 MG/ML SYR ONE ×2 (17:14→17:19)
--- NOTE | 2020-08-21 17:29 | P.BOP ---
Preoperative diagnosis: acute cholecystitis, suppurative cholecystitis, symptomatic cholelithiasis Postoperative diagnosis: same Primary procedure: Laparoscopic cholecystectomy Incendiary Powder Mixer: Ivet Berrios (David) Estimated blood loss: <20cc Specimen: gb Findings: suppurative cholecystitis Anesthesia: General Complications: None Drain(s): MARCY drain Transferred to: Recovery Room Condition: Good
[2020-08-21] MEDS: ATORVASTATIN 20 MG TAB PO SCH (20:05)
--- NOTE | 2020-08-21 22:48 | OP ---
Date of Procedure: 08/21/2020 Surgeon: Brenton Power MD Knitted Garment Finisher: Ivet Garcia. Preoperative Diagnoses: Acute cholecystitis, suppurative cholecystitis, and symptomatic cholelithias is. Postoperative Diagnoses: Acute cholecystitis, suppurative cholecystitis, and symptomatic cholelithia sis. Procedure Performed: Laparoscopic cholecystectomy. Estimated Blood Loss: Less than 20 cc. Specimen: Gallbladder. Findings: Suppurative cholecystitis, full of stones with inflammation. Drains: MARCY #10. Anesthesia: General plus local. Estimated Blood Loss: Less than 20 cc. Indications: This is the case of an 89-year-old patient who comes to us with abdominal pain, initial ly diagnosed with cholecystitis, offered surgery, but the patient is trying not to have the surgery. We obtained cardiac clearance. The patient was booked even for yesterday for surgery, but yesterday she want to give it a try because she felt a lot better. We explained to her and the family that so metimes that does not work because we have so much inflammation, but in note, she wants that opportun ity so we have to give it to her now. Yesterday when she was eating, she noticed that the pain was c ome back, so she was kept n.p.o. after midnight and then today she signed a consent for surgery. The benefits, alternatives, and risks of laparoscopic possible open cholecystectomy were explained to he r and the family, which include, but not limited to infection, bleeding, damage to adjacent structure s, anesthesia complication, choledocholithiasis, bile leak, pancreatitis, VT, and even . She al so understands this may not relieve the symptoms. She might need more than one surgical intervention . She understood, signed a consent Procedure In Detail: The patient was brought to the operating room, placed in supine position. Anes thesia was done without complication. Abdominal area was prepped and draped in usual sterile fashion . Marcaine 0.5% was injected for local anesthetic followed by sharp incision of the skin in the supr aumbilical region since the patient has an incision in the lower abdomen. Incision was carried down to fascia, which was opened under direct vision. Peritoneum was encountered, opened under direct vis ion. Vicryl #1 placed inside the fascia. Kwame trocar was carefully introduced. No bleeding was o btained. I placed 3 more trocars, 5 mm each one of them in the right upper quadrant under direct vis ualization. This gallbladder looks full stones and inflamed. We put an Endo needle to deflate the g allbladder a little bit shows some purulent discharge. Needle was removed under direct visualization . Grasper placed in the fundus of the gallbladder. Another grasper in the infundibulum retracting t he gallbladder in the inferolateral fashion exposing the triangle of Calot obtaining critical view. Cystic duct and cystic artery were clearly isolated, free circumferentially and a connection between those and the gallbladder were clearly identified. I proceeded to ligate those by using at least 3 c lips proximally and 1 clip distally, and ligation in middle. Same was done with the cystic artery. No bile leak. No bleeding. The gallbladder was removed from liver using Bovie cauterizer and remove d from abdominal cavity using EndoCatch through the umbilical incision. The area was inspected once again. Irrigation was done of the area. Suction clips were intact. No bleeding and no bile leak. MARCY drain in that region due to the severe disease of that area and exiting through 1 of the trocar si sonya, secured in place with 3-0 nylon. At that moment, we inspected the area once again. At that mom ent, we deflated the pneumoperitoneum, closed the fascia with #1 Vicryl, irrigated subcutaneous tissu e, closed with 3-0 chromic and skin in a subcuticular fashion and francisco on top. Sponge count and i nstrument counts were correct. MARCY was connected to bulb suction. The patient was sent to recovery in stable condition. VALORIE/NIGEL Voice ID: [id number] Report ID: [id number]
[2020-08-22] MEDS: D5 0.45 NS 1,000 ML IV SCH ×2 (00:30→04:36)
[2020-08-22] MEDS: PIPER/TAZO/NS 2.25gm 2.25 GM/50 ML BAG IVPB SCH ×2 (04:30→09:23)
[2020-08-22] MEDS: METOPROLOL XL 100 MG TAB PO SCH (05:41)
[2020-08-22 06:03] LABS: BUN Blood Urea Nitrogen 8 mg/dL (7-18); Bicarbonate 24 mmol/L (21-32); Glucose Level 142 mg/dL (74-106); Sodium Level 145 mmol/L (136-145)
[2020-08-22 06:05] LABS: Potassium 2.9 mmol/L (3.5-5.1)
[2020-08-22] MEDS ORDERED: POTASSIUM PHOS 30 MM in NA CHLORIDE 0.9% 500 ML IV ONE (06:09)
--- NOTE | 2020-08-22 06:12 | P.PN ---
Subjective Date of Service: 08/21/20 Scheduled to go to the OR today. Patient pain is controlled. Anticipate discharge tomorrow if patient continues do well. Review of Systems 10-point ROS is otherwise unremarkable Physical Examination - Vital Signs Temperature: 97.9 F Blood Pressure: 152/84 Pulse: 75 Respirations: 17 Pulse Ox (%): 100 - Physical Exam General: Alert, In no apparent distress, Oriented x3 Respiratory: Clear to auscultation bilaterally, Normal air movement Cardiovascular: Regular rate/rhythm, Normal S1 S2, Systolic murmur Gastrointestinal: Normal bowel sounds, Soft and benign, Non-distended, Tenderness Musculoskeletal: No clubbing, No swelling Neurological: Normal gait, Normal speech, Normal strength at 5/5 x4 extr, Normal tone, Sensation intact, Cranial nerves 3-12 intact - Studies Microbiology Data (last 24 hrs): 08/18/20 15:00 Blood - Blood Gram Stain - Final Assessment & Plan - Problems (Diagnosis) (1) Acute cholecystitis Current Visit: Yes Status: Acute - Plan 1. Continue with IV hydration 2. Continue with IV antibiotics 3. Continue with pain control 4. NPO 5. General surgery consultation appreciated 6. Serial H&H, and we will monitor CBC, BMP, LFTs and lipase along with electrolytes. 7. GI and DVT prophylaxis Discharge Plan: Home Plan to discharge in: Greater than 2 days - Advance Directives Does patient have a Living Will: No Does patient have a Durable POA for Healthcare: No - Code Status/Comfort Care Code Status: Full Code Critical Care: No Time Spent Managing PTS Care (In Minutes): 45
[2020-08-22] MEDS ORDERED: POTASSIUM CL 40 MEQ in NA CHLORIDE 0.9% 500 ML IV SCH (07:00)
[2020-08-22] MEDS: PANTOPRAZOLE 40 MG INJ IVP SCH (08:43)
[2020-08-22] MEDS: BENAZEPRIL 20 MG TAB PO SCH (08:43)
[2020-08-22] MEDS: AMLODIPINE 10 MG TAB PO SCH (08:44)
[2020-08-22] MEDS ORDERED: KCL 20 MEQ/100 mL IVPB 20 MEQ/100 ML BAG IV SCH (11:00)
[2020-08-22 12:02] VITALS: O2SAT 98
[2020-08-22 14:14] VITALS: BP 125/68; TEMP 97.6
--- NOTE | 2020-08-28 02:58 | P.DS ---
Discharge Date: 08/22/20 Primary Care Provider: Dr. Valadez([place], [place]); Cardiology-Dr. Peter Disposition: ROUTINE DISCHARGE Discharge Condition: GOOD Reason for Admission: Right upper quadrant abdominal pain - Problems (1) Acute cholecystitis Status: Acute Brief History of Present Illness: Patient is an 89-year-old female with history of hypertension on chronic anti coagulation therapy for prior blood clot. Patient presented with right upper quadrant abdominal pain. Pain has been present for the past 4 days. No significant nausea vomiting noted. Increasing pain radiating to the back was noted today. Pain did not improved. She came to the ER for further evaluation. She denied any chest pain, dizziness and, headaches. In the ER vital signs stable. White count 10, hemoglobin 13.9, platelet count 247. Sodium 139, potassium 3.1. BUN and creatinine within normal range. Troponin unremarkable. Urinalysis negative. INR 2.2. CT scan revealed no acute aortic finding. Mild pneumobilia seen on the left lobe with the liver. Cholelithiasis noted. Abdominal ultrasound showed no common bile duct dilation. Multiple cholelithiasis noted. Patient admitted for further evaluation and treatment. Hospital Course: Patient had a laparoscopic cholecystectomy and after were she is doing so much better. Her pain is improved and she is tolerating diet and ambulating without difficulty. At this time, she is stable for discharge home with outpatient follow-up. Vital Signs/Physical Exam: Temp Pulse Resp BP Pulse Ox 97.6 F 64 18 125/68 97 08/22/20 12:00 08/22/20 12:00 08/22/20 12:00 08/22/20 12:00 08/22/20 12:00 General: Alert, In no apparent distress, Oriented x3 Laboratory Data at Discharge: WBC 9.80 K/uL (4.3-10.9) 08/21/20 03:57 Hgb 11.7 g/dL (12.0-15.0) L 08/21/20 03:57 Hct 34.8 % (36.0-45.0) L 08/21/20 03:57 Plt Count 213 K/uL (152-406) 08/21/20 03:57 PT 18.5 SECONDS (9.5-12.5) H 08/20/20 05:16 INR 1.60 08/20/20 05:16 Sodium 145 mmol/L (136-145) 08/22/20 05:24 Potassium 3.7 mmol/L (3.5-5.1) 08/22/20 07:20 BUN 8 mg/dL (7-18) 08/22/20 05:24 Creatinine 0.52 mg/dL (0.55-1.3) L 08/22/20 05:24 Glucose 142 mg/dL (74-106) H 08/22/20 05:24 Magnesium 2.1 mg/dL (1.8-2.4) 08/21/20 03:57 Total Bilirubin 1.1 mg/dL (0.2-1.0) H 08/21/20 03:57 AST 17 U/L (15-37) 08/21/20 03:57 ALT 19 U/L (12-78) 08/21/20 03:57 Alkaline Phosphatase 89 U/L (45-117) 08/21/20 03:57 Amylase 34 U/L (25-115) 08/21/20 03:57 Lipase 20 U/L (73-393) L 08/21/20 03:57 Home Medications: Amlodipine Besylate/Benazepril [Amlodipine-Benazepril 10-40 mg] 10 - 40 mg PO DAILY 08/18/20 Atorvastatin Calcium 20 mg PO DAILY 08/18/20 Losartan Potassium 50 mg PO DAILY 08/18/20 Metoprolol Succinate 100 mg PO DAILY 08/18/20 Potassium Oral Tab [Klor-Con 10 mEq Tab*] 10 meq PO BID 08/18/20 Rivaroxaban [Xarelto] 20 mg PO DAILY 08/18/20 hydroCHLOROthiazide [Hydrochlorothiazide] 25 mg PO DAILY 08/18/20 Amox/Clavulanate [Augmentin 875-125 Tab] 1 each PO BID #14 tab 08/22/20 Hydrocodone 10/APAP 325 [Tebbetts 10/325] 1 tab PO Q8H PRN #30 tab 08/22/20 New Medications: Amox/Clavulanate [Augmentin 875-125 Tab] 1 each PO BID #14 tab Hydrocodone 10/APAP 325 [Tebbetts 10/325] 1 tab PO Q8H PRN #30 tab PRN Reason: Pain Physician Discharge Instructions: PROBLEM: Cholecystitis, Cholecystectomy GOAL: Clear understanding of disease process INSTRUCTIONS: OK TO DC IV AND DC HOME FOLLOW-UP WITH PRIMARY CARE PROVIDER IN 1-2 WEEKS FOLLOW-UP WITH surgery IN 1-2 WEEKS RETURN TO THE ER IF symptoms worsens CALL or TEXT DR. STAFFORD AT [phone] IF ANY QUESTIONS REGARDING HOSPITAL STAY. PLEASE CALL THE FLOOR AT [phone] IF ANY MEDICATION OR NURSING QUESTIONS. Diet: heart healthy Activity: Fall precautions Diet: AHA Activity: Fall precautions Followup: Brenton Power MD [ACTIVE - CAN ADMIT] - OOTGARY [Primary Care Provider] - Time spent managing pt's care (in minutes): 35
== END 2020-08-22 15:48 | disposition home or self-care (01) | DRG 419 ==
LOC: ER 10:06 → ERHOLD 17:26 → 2ND 20:19
PROVIDERS: ADMIT Family Medicine; ATTEND Family Medicine
PROC: 0FT44ZZ Resection of Gallbladder, Percutaneous Endoscopic Approach (ICD-10-PCS; principal; 2020-08-21 12:30)
DX: K80.00 Calculus of gallbladder with acute cholecystitis without obstruction (principal); I10 Essential (primary) hypertension; E78.5 Hyperlipidemia, unspecified; Z86.718 Personal history of other venous thrombosis and embolism; Z79.01 Long term (current) use of anticoagulants; Z20.822 Contact with and (suspected) exposure to COVID-19
CPT/HCPCS: 36415; 71045; 71275; 74175; 76705; 80048; 80076; 81003; 82150; 82565; 83690; 83735; 83880; 84132; 84484; 85025; 85610; 87040; 87086; 87088; 87205; 88304; 93005; 94010; 96361; 96365; 96367; 96375; 99285; C9113; J0696; J1100; J2270; J2405; J2543; J2704; J2710; J3010; J3480; J7030; J7040; J7042; J7120; J7799; Q9967; U0003

== ENCOUNTER 2020-09-27 14:44 | Inpatient (IN) | payer OTHER ==
[2020-09-27 19:45] LABS: Absolute Lymphocytes (CBC) 2.8 K/uL (0.7-4.9); Basophils % 0.7 % (0-1.3); Hematocrit 43.5 % (36.0-45.0); Lymphocytes % 33.4 % (15.3-44.8); MPV 8.1 fL (7.6-11.3); RBC Red Blood Cell Count 5.18 M/uL (3.86-4.86)
[2020-09-27 20:22] LABS: Albumin 3.8 g/dL (3.4-5.0); Bilirubin Direct 0.2 mg/dL (0-0.2); Bilirubin Total 0.5 mg/dL (0.2-1.0); Potassium 3.5 mmol/L (3.5-5.1); Protein, Total 8.8 g/dL (6.4-8.2)
[2020-09-27] MEDS ORDERED: NA CHLORIDE 0.9% 1,000 ML ONE (23:05)
[2020-09-28 00:51] LABS: Arterial Blood Carboxyhemoglob 1.2 % (0-1.5); Blood Gas Oxyhemoglobin 85.1 % (94-97); Blood O2 Saturation 86.8 % (92-98.5)
--- NOTE | 2020-09-28 01:21 | EDPHYS ---
Physician Documentation [facility] Name: Cortney Orozco Age: 89 yrs Sex: Female : 1930 Arrival Date: 09/27/2020 Time: 14:52 Bed 7 Private MD: ED Physician Ted Hammonds HPI: 09/27 19:24 This 89 yrs old Black Female presents to ER via Wheelchair with complaints of Abdominal pkl Pain, Vomiting. 19:24 The patient presents with abdominal pain in the upper abdomen. Onset: The pkl symptoms/episode began/occurred 4 day(s) ago. The symptoms do not radiate. Associated signs and symptoms: Pertinent positives: nausea and vomiting. Historical: - Allergies: 15:08 No Known Allergies; ll1 - PMHx: 15:08 High Cholesterol; history of blood clot; Hypertension; ll1 - PSHx: 15:12 Cholecystectomy; ll1 - Immunization history:: Client reports having NOT received the Covid vaccine. Flu vaccine is not up to date. - Social history:: Smoking status: Patient denies any tobacco usage or history of. ROS: 19:24 Eyes: Negative for injury, pain, redness, and discharge, ENT: Negative for injury, pkl pain, and discharge, Neck: Negative for injury, pain, and swelling, Cardiovascular: Negative for chest pain, palpitations, and edema, Respiratory: Negative for shortness of breath, cough, wheezing, and pleuritic chest pain. 19:24 Abdomen/GI: Positive for abdominal pain, nausea and vomiting, of the right upper quadrant and left upper quadrant. 19:24 Back: Negative for acute changes. 19:24 : Negative for urinary symptoms. 19:24 MS/extremity: Negative for acute changes. 19:24 Skin: Negative for rash. 19:24 Neuro: Negative for altered mental status, loss of consciousness. Exam: 19:24 Head/Face: Normocephalic, atraumatic. Eyes: Pupils equal round and reactive to light, pkl extra-ocular motions intact. Lids and lashes normal. Conjunctiva and sclera are non-icteric and not injected. Cornea within normal limits. Periorbital areas with no swelling, redness, or edema. ENT: Nares patent. No nasal discharge, no septal abnormalities noted. Tympanic membranes are normal and external auditory canals are clear. Oropharynx with no redness, swelling, or masses, exudates, or evidence of obstruction, uvula midline. Mucous membranes moist. Neck: Trachea midline, no thyromegaly or masses palpated, and no cervical lymphadenopathy. Supple, full range of motion without nuchal rigidity, or vertebral point tenderness. No Meningismus. Chest/axilla: Normal chest wall appearance and motion. Nontender with no deformity. No lesions are appreciated. Cardiovascular: Regular rate and rhythm with a normal S1 and S2. No gallops, murmurs, or rubs. Normal PMI, no JVD. No pulse deficits. Respiratory: Lungs have equal breath sounds bilaterally, clear to auscultation and percussion. No rales, rhonchi or wheezes noted. No increased work of breathing, no retractions or nasal flaring. 19:24 Abdomen/GI: Bowel sounds: normal, Palpation: soft, mild abdominal tenderness, in the right upper quadrant and left upper quadrant. 19:24 Back: Exam negative for acute changes. 19:24 : Exam negative for acute changes. 19:24 Musculoskeletal/extremity: Exam is negative for acute changes. 19:24 Skin: Exam negative for rash. 19:24 Neuro: Orientation: is normal, Mentation: is normal, Cranial nerves: grossly normal, Motor: is normal. Vital Signs: 15:08 BP 101 / 59; Pulse 72; Resp 18; Temp 97.3; Pulse Ox 93% ; Weight 75.75 kg; Height 5 ft. ll1 4 in. (162.56 cm); Pain 8/10; 23:30 BP 125 / 59; Pulse 69; Resp 18; Temp 98.6(O); Pulse Ox 90% on R/A; jb4 09/28 00:00 BP 118 / 66; Pulse 68; Resp 18; Pulse Ox 99% 2 lpm ; ms4 01:00 BP 131 / 68; Pulse 68; Resp 20; Pulse Ox 90% ; ms4 09/27 15:08 Body Mass Index 28.67 (75.75 kg, 162.56 cm) ll1 MDM: 09/27 19:12 Patient medically screened. pkl 09/28 01:18 Data reviewed: vital signs, nurses notes, lab test result(s), EKG, radiologic studies, pkl CT scan, plain films. ED course: Talked to Cole Sanabria ( SYSTEMS ARCHITECT ) Admit to Dr. Echeverria. 09/27 19:12 Order name: Basic Metabolic Panel iw 09/27 19:12 Order name: CBC with Diff; Complete Time: 21:16 iw 09/27 19:12 Order name: Hepatic Function; Complete Time: 21:16 iw 09/27 19:12 Order name: Lipase; Complete Time: 21:16 iw 09/27 19:12 Order name: Basic Metabolic Panel; Complete Time: 21:16 EDMS 09/27 19:19 Order name: UA pkl 09/27 23:33 Order name: SARS-COV-2 RT PCR; Complete Time: 00:01 EDMS 09/28 00:01 Order name: ABG; Complete Time: 01:10 pkl 09/28 01:11 Order name: D-Dimer; Complete Time: 01:53 pkl 09/28 01:54 Order name: CRP la1 09/28 01:54 Order name: C-Reactive Protein; Complete Time: 02:51 EDMS 09/27 19:12 Order name: IV Saline Lock; Complete Time: 19:29 iw 09/27 19:12 Order name: Labs collected and sent; Complete Time: 19:29 iw 09/27 23:06 Order name: Abdomen ; Complete Time: 19:07 EDMS 09/28 00:02 Order name: XRAY CXR (1 view); Complete Time: 19:07 pkl 09/28 01:17 Order name: CT Chest Wo Con; Complete Time: 19:07 pkl 09/28 06:29 Order name: CBC with Automated Diff; Complete Time: 06:38 EDMS 09/28 06:47 Order name: Comprehensive Metabolic Panel; Complete Time: 19:07 EDMS 09/28 06:47 Order name: Lipid Profile; Complete Time: 19:07 EDMS 09/28 06:47 Order name: T4 Free; Complete Time: 19:07 EDMS 09/28 06:47 Order name: Magnesium; Complete Time: 19:07 EDMS 09/28 06:47 Order name: Thyroid Stimulating Hormone; Complete Time: 19:07 EDMS 09/28 08:51 Order name: Ferritin; Complete Time: 19:07 EDMS Administered Medications: 09/27 22:46 Drug: NS 0.9% 500 ml Route: IV; Rate: bolus; Site: right antecubital; bs2 23:51 Drug: NS 0.9% 1000 ml Route: IV; Rate: 100 ml/hr; Site: right antecubital; jb4 09/28 20:23 Not Given (Other Intervention Used): SOLU-Medrol (methylPrednisoLONE) 125 mg IVP once iw Disposition Summary: 09/28/20 01:21 Hospitalization Ordered Hospitalization Status: Inpatient Admission pkl Provider: Jeffrey Echeverria pkl Condition: Stable pkl Problem: new pkl Symptoms: are unchanged pkl Bed/Room Type: Standard pkl Location: Intensive Care Unit(09/28/20 21:52) cg Room Assignment: 4-(09/28/20 21:52) cg Diagnosis - Positive Covid 19. Hypoxia. Dehydration pkl - Positive Covid 19. Hypoxia. Dehydration. Covid pneumonia pkl Forms: - Medication Reconciliation Form pkl - SBAR form pkl Signatures: Dispatcher [employer] EDMS Ted Hammonds MD MD pkl Kalyn London RN RN iw Cole Sanabria, LENS MOLDING EQUIPMENT OPERATOR-C LENS MOLDING EQUIPMENT OPERATOR-Cla1 Ana Jain RN RN cg Adalid Ramon RN RN jb4 Jennifer Payan RN RN ll1 Deanna Sorto RN RN bs2 Corrections: (The following items were deleted from the chart) 09/27 22:11 21:18 CORONAVIRUS+MR.LAB.BRZ ordered. EDMS EDMS 23:06 21:18 Abdomen Pelvis W Con+CT.RAD.BRZ ordered. EDMS EDMS 09/28 01:58 01:54 C-Reactive Protein ordered. EDKS EDMS 04:41 01:21 Telemetry/MedSurg (Inpatient) pkl cg 04:41 01:21 pkl cg 21:52 04:41 [facility] ER HOLD cg cg 21:52 04:41 ERHOLD- cg cg
--- NOTE | 2020-09-28 01:21 | ER ---
Nurse's Notes [facility] Name: Cortney Orozco Age: 89 yrs Sex: Female : 1930 Arrival Date: 09/27/2020 Time: 14:52 Bed 7 Private MD: Diagnosis: Positive Covid 19. Hypoxia. Dehydration;Positive Covid 19. Hypoxia. Dehydration. Covid pneumonia Presentation: 09/27 15:08 Chief complaint: Patient states: Upper abd pain with N/V for 4 days. No appetite. No ll1 fever. Coronavirus screen: Client denies travel out of the [place] in the last 14 days. At this time, the client does not indicate any symptoms associated with coronavirus-19. Ebola Screen: Patient denies travel to an Ebola-affected area in the 21 days before illness onset. Initial Sepsis Screen: Does the patient meet any 2 criteria? No. Patient's initial sepsis screen is negative. Does the patient have a suspected source of infection? Yes: Acute abdominal pain. Risk Assessment: Do you want to hurt yourself or someone else? Patient reports no desire to harm self or others. Onset of symptoms was September 24, 2020. 15:08 Method Of Arrival: Wheelchair ll1 15:08 Acuity: VITALIY 3 ll1 Historical: - Allergies: 15:08 No Known Allergies; ll1 - PMHx: 15:08 High Cholesterol; history of blood clot; Hypertension; ll1 - PSHx: 15:12 Cholecystectomy; ll1 - Immunization history:: Client reports having NOT received the Covid vaccine. Flu vaccine is not up to date. - Social history:: Smoking status: Patient denies any tobacco usage or history of. Assessment: 19:20 General: Appears in no apparent distress. uncomfortable, Behavior is calm, cooperative. jb4 Pain: Complains of pain in abdomen Pain does not radiate. Pain currently is 8 out of 10 on a pain scale. Neuro: Level of Consciousness is awake, alert, obeys commands, Oriented to person, place, time, situation. Cardiovascular: Respiratory: Airway is patent Respiratory effort is even, unlabored, Respiratory pattern is regular, symmetrical. GI: Abdomen is non-distended, obese. : No signs and/or symptoms were reported regarding the genitourinary system. EENT: Derm: Skin is intact, Skin is dry, Skin is normal, Skin temperature is warm. Musculoskeletal: Circulation, motion, and sensation intact. Range of motion: intact in all extremities. 20:30 Reassessment: Patient appears in no apparent distress at this time. Patient and/or jb4 family updated on plan of care and expected duration. Pain level reassessed. Patient is alert, oriented x 3, equal unlabored respirations, skin warm/dry/pink. 21:30 Reassessment: Patient appears in no apparent distress at this time. jb4 22:30 Reassessment: Patient appears in no apparent distress at this time. Patient and/or jb4 family updated on plan of care and expected duration. Pain level reassessed. Patient is alert, oriented x 3, equal unlabored respirations, skin warm/dry/pink. 23:45 Reassessment: Patient appears in no apparent distress at this time. Patient and/or jb4 family updated on plan of care and expected duration. Pain level reassessed. Patient is alert, oriented x 3, equal unlabored respirations, skin warm/dry/pink. 09/28 00:02 Reassessment: Pt desat to 88% on RA while at rest, placed on 2L NC now satting 96% jb4 provider notified. 00:49 Reassessment: patient placed back on 2 L NC. ms4 11:16 Reassessment: Arian (son) [phone]. hb Vital Signs: 09/27 15:08 BP 101 / 59; Pulse 72; Resp 18; Temp 97.3; Pulse Ox 93% ; Weight 75.75 kg; Height 5 ft. ll1 4 in. (162.56 cm); Pain 8/10; 23:30 BP 125 / 59; Pulse 69; Resp 18; Temp 98.6(O); Pulse Ox 90% on R/A; jb4 09/28 00:00 BP 118 / 66; Pulse 68; Resp 18; Pulse Ox 99% 2 lpm ; ms4 01:00 BP 131 / 68; Pulse 68; Resp 20; Pulse Ox 90% ; ms4 09/27 15:08 Body Mass Index 28.67 (75.75 kg, 162.56 cm) ll1 ED Course: 09/27 14:52 Patient arrived in ED. ds1 15:08 Arm band placed on. ll1 15:11 Triage completed. ll1 19:12 Ted Hammonds MD is Attending Physician. pkl 19:29 Basic Metabolic Panel Sent. ms4 19:29 Basic Metabolic Panel Sent. ms4 19:29 CBC with Diff Sent. ms4 19:29 Hepatic Function Sent. ms4 19:29 Lipase Sent. ms4 19:29 Inserted saline lock: 22 gauge in right antecubital area, using aseptic technique. ms4 21:01 Adalid Ramon, RN is Primary Nurse. jb4 23:08 Abdomen In Process Unspecified. EDMS 08 00:32 XRAY CXR (1 view) In Process Unspecified. EDMS 01:19 Jeffrey Echeverria DO is Hospitalizing Provider. pkl 02:20 CT Chest Wo Con In Process Unspecified. EDMS 04:48 CRP Sent. bs2 Administered Medications: 09/27 22:46 Drug: NS 0.9% 500 ml Route: IV; Rate: bolus; Site: right antecubital; bs2 23:51 Drug: NS 0.9% 1000 ml Route: IV; Rate: 100 ml/hr; Site: right antecubital; jb4 09/28 20:23 Not Given (Other Intervention Used): SOLU-Medrol (methylPrednisoLONE) 125 mg IVP once iw Outcome: 01:21 Decision to Hospitalize by Provider. pkl 22:53 Patient left the ED. mw2 Signatures: Dispatcher [employer] EDNJ Ted Hammonds MD MD pkl Amber Carpenter ds1 Bozena Bautista RN RN Adalid Ramon, RN RN jb4 Irena Buitrago mw2 Jennifer Payan RN RN ll1 Deanna Sorto RN RN bs2 Christine Lambert RN RN ms4 Kalyn London RN iw Corrections: (The following items were deleted from the chart) 01:00 00:00 BP 131 / 68; Pulse 68bpm; Resp 20bpm; Pulse Ox 90%; ms4 ms4
--- NOTE | 2020-09-28 02:40 | P.HP ---
Certification for Inpatient Patient admitted to: Inpatient With expected LOS: >2 Midnights Patient will require the following post-hospital care: None Practitioner: I am a practitioner with admitting privileges, knowledge of patient current condition, hospital course, and medical plan of care. Services: Services provided to patient in accordance with Admission requirements found in Title 42 Section 412.3 of the Code of Federal Regulations Patient History Date of Service: 09/28/20 Reason for admission: COVID-19 pneumonia History of Present Illness: 89-year-old female with history of hypertension, hyperlipidemia, blood clots on chronic anticoagulation therapy presents emergency department for abdominal pain, nausea, vomiting. Patient reports earlier today she was having some lower abdominal pain with vomiting, this has since resolved. Patient was evaluated in the emergency department, CT abdomen pelvis was negative for acute findings during her stay in the emergency department it was noted the patient was hypoxic about 88% on room air, patient was tested for Covid, this was positive. Patient not vaccinated. Other labs significant for creatinine 1.7, baseline renal function creatinine 0.5 C-reactive protein 97.6 GFR 34. ED provider wishes to admit for further evaluation and management of COVID-19 pneumonia with hypoxia, dehydration, acute kidney injury. Allergies No Known Allergies Allergy (Unverified 08/18/20 22:38) Home Medications: Amlodipine Besylate/Benazepril [Amlodipine-Benazepril 10-40 mg] 10 - 40 mg PO DAILY 08/18/20 Atorvastatin Calcium 20 mg PO DAILY 08/18/20 Losartan Potassium 50 mg PO DAILY 08/18/20 Metoprolol Succinate 100 mg PO DAILY 08/18/20 Potassium Oral Tab [Klor-Con 10 mEq Tab*] 10 meq PO BID 08/18/20 Rivaroxaban [Xarelto] 20 mg PO DAILY 08/18/20 hydroCHLOROthiazide [Hydrochlorothiazide] 25 mg PO DAILY 08/18/20 Amox/Clavulanate [Augmentin 875-125 Tab] 1 each PO BID #14 tab 08/22/20 Hydrocodone 10/APAP 325 [[place] 10/325] 1 tab PO Q8H PRN #30 tab 08/22/20 - Past Medical/Surgical History Diabetic: No -: Hypertension -: History of blood clot currently on Xarelto -: Hyperlipidemia -: thyroid biopsy -: eye sx Psychosocial/ Personal History: Patient lives at home. She is a . - Social History Smoking Status: Never smoker Alcohol use: No CD- Drugs: No Caffeine use: No Place of Residence: Home Review of Systems 10-point ROS is otherwise unremarkable General: Weakness, Malaise Respiratory: Cough Physical Examination - Physical Exam General: Alert, In no apparent distress, Oriented x3 HEENT: Atraumatic, PERRLA, Mucous membr. moist/pink, EOMI, Sclerae nonicteric Neck: Supple, 2+ carotid pulse no bruit, No LAD, Without JVD or thyroid abnormality Respiratory: Clear to auscultation bilaterally, Normal air movement Cardiovascular: Regular rate/rhythm, Normal S1 S2 Gastrointestinal: Normal bowel sounds, No tenderness Musculoskeletal: No tenderness Integumentary: No rashes Neurological: Normal speech, Normal strength at 5/5 x4 extr, Normal tone, Normal affect Lymphatics: No axilla or inguinal lymphadenopathy - Studies Laboratory Data (last 24 hrs) 09/27/20 19:30: WBC 8.30, Hgb 14.1, Hct 43.5, Plt Count 198 09/27/20 19:30: Sodium 139, Potassium 3.5, BUN 27 H, Creatinine 1.70 H, Glucose 119 H, Total Bilirubin 0.5, AST 49 H, ALT 32, Alkaline Phosphatase 95, Lipase 51 L Assessment and Plan - Plan Assessment: Acute hypoxic respiratory failure secondary to COVID-19 pneumonia Nausea, vomiting secondary to above Acute kidney injury Plan: Acute hypoxic respiratory failure secondary to COVID-19 pneumonia: Continue with IV steroids, oral supplements, supplemental oxygen as needed, daily room air saturations, room air saturations for home oxygen. Pulmonology consulted. Nausea, vomiting secondary to above: Abdominal pain, nausea, vomiting have resolved at this time. Patient tolerating diet well. Appears dehydrated. Acute kidney injury: Creatinine 1.7, baseline around 0.5. We will continue with IV fluids, consult nephrology as necessary. Likely related to dehydration. DVT PPX: Lovenox Code status: Full Discharge Plan: Home Plan to discharge in: 48 Hours - Advance Directives Does patient have a Living Will: No Does patient have a Durable POA for Healthcare: No - Code Status/Comfort Care Code Status Assessed: Yes (Full code) Critical Care: No Time Spent Managing Pts Care (In Minutes): 55
[2020-09-28] MEDS ORDERED: ONDANSETRON 4 MG/2 ML VIAL IV PRN (04:10)
[2020-09-28] MEDS ORDERED: NA CHLORIDE 0.9% 1,000 ML IV SCH (04:10)
[2020-09-28] MEDS ORDERED: NA CHLORIDE 0.9% 1,000 ML ONE (06:09)
[2020-09-28 06:27] LABS: Absolute Lymphocytes (CBC) 1.5 K/uL (0.7-4.9); Basophils % 0.7 % (0-1.3); Hematocrit 39.6 % (36.0-45.0); Lymphocytes % 33.6 % (15.3-44.8); MPV 8.1 fL (7.6-11.3); RBC Red Blood Cell Count 4.71 M/uL (3.86-4.86)
[2020-09-28 06:45] LABS: Albumin 3.2 g/dL (3.4-5.0); Bilirubin Total 0.5 mg/dL (0.2-1.0); Magnesium 2.5 mg/dL (1.8-2.4); Potassium 3.2 mmol/L (3.5-5.1); Protein, Total 7.7 g/dL (6.4-8.2); Thyroid Stimulating Hormone 1.09 uIU/mL (0.360-3.740)
--- NOTE | 2020-09-28 08:56 | RAD REPORT ---
EXAM DESCRIPTION: RAD - Chest Single View - 09/28/2020 12:32 am CLINICAL HISTORY: vomiting Chest pain. COMPARISON: Chest Single View dated 08/18/2020 FINDINGS: Portable technique limits examination quality. The lungs are underinflated which results in vascular crowding. The heart is moderately enlarged in s ize. Degenerative changes are present both shoulders. IMPRESSION: No acute intrathoracic process suspected.
[2020-09-28] MEDS: ASCORBIC ACID 500 MG TABLET PO SCH ×4 (09:00→21:00)
[2020-09-28] MEDS: THIAMINE HCL 100 MG TABLET PO SCH ×2 (09:00→21:00)
[2020-09-28] MEDS ORDERED: ENOXAPARIN 40 MG/0.4 ML SQ SCH (09:00)
[2020-09-28] MEDS: ZINC SULFATE 220 MG CAP PO SCH (09:00)
[2020-09-28] MEDS: VITAMIN D 1000 UNIT TAB PO SCH (09:00)
[2020-09-28] MEDS: METHYLPREDNISOLONE 40 MG INJ IV SCH ×2 (09:00→17:00)
[2020-09-28] MEDS ORDERED: ASCORBIC ACID 500 MG TABLET ONE ×3 (09:23→22:34)
[2020-09-28] MEDS ORDERED: METHYLPREDNISOLONE 125 MG INJ ONE ×2 (09:23→16:44)
[2020-09-28] MEDS ORDERED: ZINC SULFATE 220 MG CAP ONE (09:23)
[2020-09-28] MEDS ORDERED: VITAMIN D 1000 UNIT TAB ONE (09:23)
[2020-09-28] MEDS ORDERED: THIAMINE HCL 100 MG TABLET ONE ×2 (09:23→22:34)
--- NOTE | 2020-09-28 12:09 | P.PN ---
Subjective Date of Service: 09/28/20 Chief Complaint: COVID-19 pneumonia Subjective: Other (Currently on 2 L per nasal cannula) Physical Examination - Vital Signs Temperature: 98.1 F Blood Pressure: 133/64 Pulse: 66 Respirations: 22 Pulse Ox (%): 93 - Studies Laboratory Data (last 24 hrs) 09/27/20 19:30: WBC 8.30, Hgb 14.1, Hct 43.5, Plt Count 198 09/27/20 19:30: Sodium 139, Potassium 3.5, BUN 27 H, Creatinine 1.70 H, Glucose 119 H, Total Bilirubin 0.5, AST 49 H, ALT 32, Alkaline Phosphatase 95, Lipase 51 L Assessment & Plan Discharge Plan: Home Plan to discharge in: 48 Hours Physician Review Additional Text: COVID: Positive CXR: COMPARISON: Chest Single View dated 08/18/2020 FINDINGS: Portable technique limits examination quality. The lungs are underinflated which results in vascular crowding. The heart is moderately enlarged in size. Degenerative changes are present both shoulders. IMPRESSION: No acute intrathoracic process suspected CT abdomen: Unremarkable Physical exam: General: Alert, In no apparent distress, Oriented x3 HEENT: Atraumatic, PERRLA, Mucous membr. moist/pink, EOMI, Sclerae nonicteric Neck: Supple, 2+ carotid pulse no bruit, No LAD, Without JVD or thyroid abnormality Respiratory: Currently on 2 L per nasal cannula Cardiovascular: Regular rate/rhythm, Normal S1 S2 Gastrointestinal: Normal bowel sounds, No tenderness Musculoskeletal: No tenderness Integumentary: No rashes Neurological: Normal speech, Normal strength at 5/5 x4 extr, Normal tone, Normal affect Lymphatics: No axilla or inguinal lymphadenopathy Assessment: Acute hypoxic respiratory failure secondary to COVID-19 pneumonia Nausea, vomiting secondary to above Acute kidney injury Hypertension Hyperlipidemia Chronic anticoagulation therapy Plan: Acute hypoxic respiratory failure secondary to COVID-19 pneumonia: Continue with oxygen. We will try to wean off. Continue with IV steroids and supplementation. Encourage incentive spirometer, proning, facemask use. Await recommendations by pulmonology. We will continue to monitor closely. Anticipate continued improvement. Possible home with home oxygen in the next 48 to 72 hours. Nausea, vomiting secondary to above: Abdominal pain, nausea, vomiting have resolved at this time. Patient tolerating diet well. Appears dehydrated. Acute kidney injury: Creatinine 1.7, baseline around 0.5. IV fluids discontinued. Encourage oral intake. Monitor renal function closely. Hypertension: Continue with metoprolol Hyperlipidemia: Continue with medicationLipitor Chronic anticoagulation therapy: Continue with medicationXarelto DVT PPX: Xarelto Code status: Full Discharge Plan: Home Plan to discharge in: 48 Hours Time Spent Managing Pts Care (In Minutes): 55
--- NOTE | 2020-09-28 12:29 | RAD REPORT ---
EXAM DESCRIPTION: CT Chest COMPARISON: CT chest March 05, 2016 CLINICAL HISTORY: Hypoxia TECHNIQUE: CT images through the chest without IV contrast. Multiplanar reformats. Automated expos ure control was utilized on this examination as a dose lowering technique. CT CHEST FINDINGS: Heart and mediastinum: Heart size is enlarged. No lymphadenopathy. Moderate multi vessel calcified atherosclerosis. Thyroid gland: Visualized portions are normal. Lungs: Multifocal bilateral glass opacities are present. Bilateral lower lobe fibrosis is noted. Airways: No filling defects. No bronchiectasis. Pleura: No pneumothorax. No significant pleural effusion. Subphrenic structures: Cholecystectomy. Musculoskeletal and soft tissues: Bilateral shoulder degenerative change. Thoracic spondylosis is pre sent with anterior osteophytes. IMPRESSION: 1. Multifocal pneumonia. Commonly reported imaging features of COVID-19 pneumonia are pr esent. Other processes such as influenza pneumonia and organizing pneumonia, as can be seen with drug toxicity and connective tissue disease, can cause similar imaging pattern. 2. Bilateral lower lobe fibrosis. 3. Cardiomegaly. 4. Moderate atherosclerosis. Electronically signed by: Berny Cadena MD 09/28/2020 2:40 AM CDT Due to temporary technical issues with the PACS/Fluency reporting system, reports are being signed by the in house radiologist without review as a courtesy to ensure prompt reporting. The interpreting r adiologist is fully responsible for the content of the report.
--- NOTE | 2020-09-28 12:30 | RAD REPORT ---
EXAM DESCRIPTION: CT Abdomen and Pelvis COMPARISON: CTA August 18, 2020, CT abdomen and pelvis April 18, 2018 report only CLINICAL HISTORY: Vomiting;Abd pain TECHNIQUE: CT of the abdomen and pelvis was acquired without IV contrast material. Coronal and sag ittal reconstructions were obtained. Automated exposure control was utilized on this examination as a dose lowering technique. FINDINGS: Lung bases: Bibasilar pulmonary fibrosis is present. Cardiomegaly. *Evaluation of solid organs is limited due to lack of IV contrast. Liver: Normal. Gallbladder and biliary: Cholecystectomy. Unremarkable biliary tree. Pancreas: Normal. Spleen: Normal. Adrenal glands: Normal adrenal glands. Kidneys: Normal kidneys Stomach and Small Bowel: Small hiatal hernia. Urinary bladder: Normal. Uterus and Adnexa: A small uterine fibroid is noted. Colon and Appendix: Severe descending colon diverticulosis. No evidence of appendicitis. Retroperitoneum and lymph nodes: Mesenteric lymph nodes are increased in number but not in size. Mild central mesenteric fat stranding is noted. Vascular: Moderate multivessel calcified atherosclerosis. Peritoneal cavity: No ascites or free air. Musculoskeletal and soft tissues: There is a 4.0 cm lipoma in the left ventral abdominal musculature. Lumbar spondylosis. No aggressive bone lesions. No compression fracture. IMPRESSION: 1. Mild central mesenteric fat stranding is nonspecific but may be seen with mild mesent cory panniculitis. 2. Pulmonary fibrosis. 3. Cardiomegaly. 4. Severe colonic diverticulosis. 5. Moderate atherosclerosis. Electronically signed by: Berny Cadena MD 09/27/2020 11:43 PM CDT Due to temporary technical issues with the PACS/Fluency reporting system, reports are being signed by the in house radiologist without review as a courtesy to ensure prompt reporting. The interpreting r adiologist is fully responsible for the content of the report.
[2020-09-28] MEDS ORDERED: ACETAMINOPHEN 500 MG TAB ONE (16:44)
[2020-09-28] MEDS: RIVAROXABAN 20 MG TABLET PO SCH (17:00)
[2020-09-28] MEDS ORDERED: RIVAROXABAN 10 MG TABLET PO SCH (17:00)
[2020-09-28] MEDS: METOPROLOL TAR 25 MG TAB PO SCH (18:00)
[2020-09-28] MEDS: ATORVASTATIN 20 MG TAB PO SCH (21:00)
[2020-09-28] MEDS ORDERED: ATORVASTATIN 20 MG TAB ONE (22:34)
[2020-09-28] MEDS ORDERED: POTASSIUM 25 MEQ EFFERV TAB PO ONE (23:36)
[2020-09-29] MEDS: METHYLPREDNISOLONE 40 MG INJ IV SCH ×3 (00:02→17:31)
[2020-09-29] MEDS ORDERED: NA CHLORIDE 0.9% 250 ML IV ONE (05:57)
[2020-09-29] MEDS: METOPROLOL TAR 25 MG TAB PO SCH (06:00)
--- NOTE | 2020-09-29 06:00 | P.PN ---
Subjective Date of Service: 09/29/20 Chief Complaint: COVID-19 pneumonia Subjective: Improving (Currently on 1.5 L per nasal cannula. Overall improved.) Physical Examination - Vital Signs Temperature: 96.5 F Blood Pressure: 87/54 Pulse: 61 Respirations: 9 Pulse Ox (%): 96 Assessment & Plan Discharge Plan: Home Plan to discharge in: 48 Hours Physician Review Additional Text: COVID: Positive CXR: COMPARISON: Chest Single View dated 08/18/2020 FINDINGS: Portable technique limits examination quality. The lungs are underinflated which results in vascular crowding. The heart is moderately enlarged in size. Degenerative changes are present both shoulders. IMPRESSION: No acute intrathoracic process suspected CT abdomen: COMPARISON: CTA August 18, 2020, CT abdomen and pelvis April 18, 2018 report only CLINICAL HISTORY: Vomiting;Abd pain TECHNIQUE: CT of the abdomen and pelvis was acquired without IV contrast material. Coronal and sagittal reconstructions were obtained. Automated exposure control was utilized on this examination as a dose lowering technique. FINDINGS: Lung bases: Bibasilar pulmonary fibrosis is present. Cardiomegaly. *Evaluation of solid organs is limited due to lack of IV contrast. Liver: Normal. Gallbladder and biliary: Cholecystectomy. Unremarkable biliary tree. Pancreas: Normal. Spleen: Normal. Adrenal glands: Normal adrenal glands. Kidneys: Normal kidneys Stomach and Small Bowel: Small hiatal hernia. Urinary bladder: Normal. Uterus and Adnexa: A small uterine fibroid is noted. Colon and Appendix: Severe descending colon diverticulosis. No evidence of appendicitis. Retroperitoneum and lymph nodes: Mesenteric lymph nodes are increased in number but not in size. Mild central mesenteric fat stranding is noted. Vascular: Moderate multivessel calcified atherosclerosis. Peritoneal cavity: No ascites or free air. Musculoskeletal and soft tissues: There is a 4.0 cm lipoma in the left ventral abdominal musculature. Lumbar spondylosis. No aggressive bone lesions. No compression fracture. IMPRESSION: 1. 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 2. Pulmonary fibrosis. 3. Cardiomegaly. 4. Severe colonic diverticulosis. 5. Moderate atherosclerosis. CT Chest: CLINICAL HISTORY: Hypoxia TECHNIQUE: CT images through the chest without IV contrast. Multiplanar reformats. Automated exposure control was utilized on this examination as a dose lowering technique. CT CHEST FINDINGS: Heart and mediastinum: Heart size is enlarged. No lymphadenopathy. Moderate multivessel calcified atherosclerosis. Thyroid gland: Visualized portions are normal. Lungs: Multifocal bilateral glass opacities are present. Bilateral lower lobe fibrosis is noted. Airways: No filling defects. No bronchiectasis. Pleura: No pneumothorax. No significant pleural effusion. Subphrenic structures: Cholecystectomy. Musculoskeletal and soft tissues: Bilateral shoulder degenerative change. Thoracic spondylosis is present with anterior osteophytes. IMPRESSION: 1. Multifocal pneumonia. Commonly reported imaging features of COVID-19 pneumonia are present. Other processes such as influenza pneumonia and organizing pneumonia, as can be seen with drug toxicity and connective tissue disease, can cause similar imaging pattern. 2. Bilateral lower lobe fibrosis. 3. Cardiomegaly. 4. Moderate atherosclerosis. Follow-up chest x-ray: COMPARISON: September 28, 2020 FINDINGS: No change in mild bilateral pulmonary opacities. Heart remains enlarged IMPRESSION: No change in mild bilateral pulmonary opacities probably pneumonia Physical exam: General: Alert, In no apparent distress, Oriented x3 HEENT: Atraumatic, PERRLA, Mucous membr. moist/pink, EOMI, Sclerae nonicteric Neck: Supple, 2+ carotid pulse no bruit, No LAD, Without JVD or thyroid abnormality Respiratory: Better air sounds bilateral. Currently on 1.5 L. Cardiovascular: Regular rate/rhythm, Normal S1 S2 Gastrointestinal: Normal bowel sounds, No tenderness Musculoskeletal: No tenderness Integumentary: No rashes Neurological: Normal speech, Normal strength at 5/5 x4 extr, Normal tone, Normal affect Lymphatics: No axilla or inguinal lymphadenopathy Assessment: Acute hypoxic respiratory failure secondary to COVID-19 pneumonia Nausea, vomiting secondary to above Acute kidney injury Hypertension Hyperlipidemia Chronic anticoagulation therapy Plan: Acute hypoxic respiratory failure secondary to COVID-19 pneumonia: Patient continues to improve. Currently on 1.5 L. Continue IV steroids and supplementation. Encourage incentive spirometer, proning and facemask use. Will decrease IV fluids. Patient was given normal saline this morning. Continue to hold blood pressure medications. Case discussed with pulmonology. Will monitor closely. Anticipate home in the next 24 to 48 hours likely with home oxygen. Nausea, vomiting secondary to above: Patient without abdominal pain. Continue with diet. Acute kidney injury: Creatinine improved. Will decrease IV fluids. Fluid bolus given this morning. Continue to hold blood pressure medication. Hypertension: Patient takes multiple medications. Continue to hold metoprolol, hydrochlorothiazide, Norvasc, losartan. Hyperlipidemia: Continue with medicationLipitor Chronic anticoagulation therapy: Continue with medicationXarelto DVT PPX: Xarelto Code status: Full Discharge Plan: Home Plan to discharge in: 48 Hours Time Spent Managing Pts Care (In Minutes): 55
[2020-09-29 06:57] LABS: Absolute Lymphocytes (CBC) 1.5 K/uL (0.7-4.9); Basophils % 0.6 % (0-1.3); Hematocrit 38.7 % (36.0-45.0); Lymphocytes % 41.4 % (15.3-44.8); MPV 8.1 fL (7.6-11.3); RBC Red Blood Cell Count 4.64 M/uL (3.86-4.86)
--- NOTE | 2020-09-29 07:11 | RAD REPORT ---
EXAM DESCRIPTION: Mag Single View09/29/2020 5:28 am CLINICAL HISTORY: Shortness of breath COMPARISON: September 28, 2020 FINDINGS: No change in mild bilateral pulmonary opacities. Heart remains enlarged IMPRESSION: No change in mild bilateral pulmonary opacities probably pneumonia
[2020-09-29 07:20] LABS: Urine Appearance CLOUDY (Clear); Urine Bilirubin NEGATIVE (Negative); Urine Blood NEGATIVE (Negative); Urine Color YELLOW (Yellow); Urine Glucose NEGATIVE (Negative); Urine Protein NEGATIVE (Negative); Urine Urobilinogen 0.2 mg/dL (0.2-1.0)
[2020-09-29 07:36] LABS: Urine Microscopic Reflex ORDER UMIC
[2020-09-29 07:51] LABS: Bilirubin Total 0.6 mg/dL (0.2-1.0); Ferritin 1506.3 ng/mL (8-388); Magnesium 2.6 mg/dL (1.8-2.4); Protein, Total 7.5 g/dL (6.4-8.2)
[2020-09-29 09:03] LABS: Urine Bacteria 20-50 /HPF (<20); Urine RBC <5 /HPF (NONE SEEN)
[2020-09-29] MEDS: THIAMINE HCL 100 MG TABLET PO SCH ×2 (09:50→20:00)
[2020-09-29] MEDS: ASCORBIC ACID 500 MG TABLET PO SCH ×4 (09:50→20:00)
[2020-09-29] MEDS: ZINC SULFATE 220 MG CAP PO SCH (09:50)
[2020-09-29] MEDS: VITAMIN D 1000 UNIT TAB PO SCH (09:50)
--- NOTE | 2020-09-29 12:22 | P.CNS ---
Date of Consult: 09/29/20 (pt agreed to TV) Reason for Consult: COVID penumonia Chief Complaint: COVID-19 pneumonia History of Present Illness: AGE 89 with metabolic synd aW GI symptoms, Hypoxic. pos fro COVID/ Minimal O2 Allergies No Known Allergies Allergy (Unverified 08/18/20 22:38) Home Medications: Amlodipine Besylate/Benazepril [Amlodipine-Benazepril 10-40 mg] 10 - 40 mg PO DAILY 08/18/20 Atorvastatin Calcium 20 mg PO DAILY 08/18/20 Losartan Potassium 50 mg PO DAILY 08/18/20 Metoprolol Succinate 100 mg PO DAILY 08/18/20 Potassium Oral Tab [Klor-Con 10 mEq Tab*] 10 meq PO BID 08/18/20 Rivaroxaban [Xarelto] 20 mg PO DAILY 08/18/20 hydroCHLOROthiazide [Hydrochlorothiazide] 25 mg PO DAILY 08/18/20 Amox/Clavulanate [Augmentin 875-125 Tab] 1 each PO BID #14 tab 08/22/20 Hydrocodone 10/APAP 325 [[place] 10/325] 1 tab PO Q8H PRN #30 tab 08/22/20 - Past Medical/Surgical History Diabetic: No -: Hypertension -: History of blood clot currently on Xarelto -: Hyperlipidemia -: thyroid biopsy -: eye sx Psychosocial/ Personal History: Patient lives at home. She is a . - Social History Smoking Status: Never smoker Alcohol use: No CD- Drugs: No Caffeine use: No Place of Residence: Home Review of Systems General: Weakness Respiratory: Shortness of Breath Physical Examination Temp Pulse Resp BP Pulse Ox 97.4 F 62 22 H 107/62 96 09/29/20 08:00 09/29/20 08:00 09/29/20 08:00 09/29/20 08:00 09/29/20 06:00 General: Alert, In no apparent distress, Oriented x3, Cooperative - Problems (1) Pneumonia due to COVID-19 virus Current Visit: Yes Status: Acute Plan: COVID penumonia wiht GI symproms/ CRP elevated/ Renal function has improved/ Poss DC Am/ LABs and Xray rev/ Start on IV fluids
[2020-09-29] MEDS ORDERED: NACHLORIDE 0.45% 1,000 ML IV SCH ×2 (13:00)
[2020-09-29] MEDS: IVERMECTIN 3 MG TABLET PO SCH (13:46)
[2020-09-29] MEDS: RIVAROXABAN 20 MG TABLET PO SCH (17:31)
[2020-09-29] MEDS: ATORVASTATIN 20 MG TAB PO SCH (20:00)
[2020-09-30] MEDS: METHYLPREDNISOLONE 40 MG INJ IV SCH ×3 (01:09→16:46)
--- NOTE | 2020-09-30 05:49 | P.PN ---
Subjective Date of Service: 09/30/20 Chief Complaint: COVID-19 pneumonia Subjective: Improving Physical Examination - Vital Signs Temperature: 97.6 F Blood Pressure: 105/68 Pulse: 77 Respirations: 21 Pulse Ox (%): 93 Assessment & Plan Discharge Plan: Home Plan to discharge in: 24 Hours Physician Review Additional Text: COVID: Positive CXR: COMPARISON: Chest Single View dated 08/18/2020 FINDINGS: Portable technique limits examination quality. The lungs are underinflated which results in vascular crowding. The heart is moderately enlarged in size. Degenerative changes are present both shoulders. IMPRESSION: No acute intrathoracic process suspected CT abdomen: COMPARISON: CTA August 18, 2020, CT abdomen and pelvis April 18, 2018 report only CLINICAL HISTORY: Vomiting;Abd pain TECHNIQUE: CT of the abdomen and pelvis was acquired without IV contrast material. Coronal and sagittal reconstructions were obtained. Automated exposure control was utilized on this examination as a dose lowering technique. FINDINGS: Lung bases: Bibasilar pulmonary fibrosis is present. Cardiomegaly. *Evaluation of solid organs is limited due to lack of IV contrast. Liver: Normal. Gallbladder and biliary: Cholecystectomy. Unremarkable biliary tree. Pancreas: Normal. Spleen: Normal. Adrenal glands: Normal adrenal glands. Kidneys: Normal kidneys Stomach and Small Bowel: Small hiatal hernia. Urinary bladder: Normal. Uterus and Adnexa: A small uterine fibroid is noted. Colon and Appendix: Severe descending colon diverticulosis. No evidence of appendicitis. Retroperitoneum and lymph nodes: Mesenteric lymph nodes are increased in number but not in size. Mild central mesenteric fat stranding is noted. Vascular: Moderate multivessel calcified atherosclerosis. Peritoneal cavity: No ascites or free air. Musculoskeletal and soft tissues: There is a 4.0 cm lipoma in the left ventral abdominal musculature. Lumbar spondylosis. No aggressive bone lesions. No compression fracture. IMPRESSION: 1. 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 2. Pulmonary fibrosis. 3. Cardiomegaly. 4. Severe colonic diverticulosis. 5. Moderate atherosclerosis. CT Chest: CLINICAL HISTORY: Hypoxia TECHNIQUE: CT images through the chest without IV contrast. Multiplanar reformats. Automated exposure control was utilized on this examination as a dose lowering technique. CT CHEST FINDINGS: Heart and mediastinum: Heart size is enlarged. No lymphadenopathy. Moderate multivessel calcified atherosclerosis. Thyroid gland: Visualized portions are normal. Lungs: Multifocal bilateral glass opacities are present. Bilateral lower lobe fibrosis is noted. Airways: No filling defects. No bronchiectasis. Pleura: No pneumothorax. No significant pleural effusion. Subphrenic structures: Cholecystectomy. Musculoskeletal and soft tissues: Bilateral shoulder degenerative change. Thoracic spondylosis is present with anterior osteophytes. IMPRESSION: 1. Multifocal pneumonia. Commonly reported imaging features of COVID-19 pneumonia are present. Other processes such as influenza pneumonia and organizing pneumonia, as can be seen with drug toxicity and connective tissue disease, can cause similar imaging pattern. 2. Bilateral lower lobe fibrosis. 3. Cardiomegaly. 4. Moderate atherosclerosis. Follow-up chest x-ray: COMPARISON: September 28, 2020 FINDINGS: No change in mild bilateral pulmonary opacities. Heart remains enlarged IMPRESSION: No change in mild bilateral pulmonary opacities probably pneumonia Physical exam: General: Alert, In no apparent distress, Oriented x3 HEENT: Atraumatic, PERRLA, Mucous membr. moist/pink, EOMI, Sclerae nonicteric Neck: Supple, 2+ carotid pulse no bruit, No LAD, Without JVD or thyroid abnormality Respiratory: Better air sounds bilateral. Currently on 1.5 L. Cardiovascular: Regular rate/rhythm, Normal S1 S2 Gastrointestinal: Normal bowel sounds, No tenderness Musculoskeletal: No tenderness Integumentary: No rashes Neurological: Normal speech, Normal strength at 5/5 x4 extr, Normal tone, Normal affect Lymphatics: No axilla or inguinal lymphadenopathy Assessment: Acute hypoxic respiratory failure secondary to COVID-19 pneumonia Nausea, vomiting secondary to above Acute kidney injury Hypertension Hyperlipidemia Chronic anticoagulation therapy Plan: Acute hypoxic respiratory failure secondary to COVID-19 pneumonia: Patient continues to improve. Blood pressure improved with IV fluids. Will discontinue IV fluids. Continue to hold blood pressure medication. Physical therapy worked with the patient. Still feeling very weak. Family has a lot of support at home for her. Would like to continue to monitor the patient at least another 24 hours to consider possible discharge as early as tomorrow. Patient will require home oxygen. We will help arrange. Will decrease IV steroids. Case discussed with pulmonology. Anticipate discharge tomorrow. Encourage ambulation, incentive spirometer and proning Nausea, vomiting secondary to above: No more pain noted. Patient tolerating diet.. Acute kidney injury: Renal function improved. Discontinue IV fluids. Will monitor off medication. Hypertension: Patient takes multiple medications. Continue to hold metoprolol, hydrochlorothiazide, Norvasc, losartan. Hyperlipidemia: Continue with medicationLipitor Chronic anticoagulation therapy: Continue with medicationXarelto DVT PPX: Xarelto Code status: Full Discharge Plan: Home Plan to discharge in: 24 hours Time Spent Managing Pts Care (In Minutes): 55
[2020-09-30 05:56] LABS: BUN Blood Urea Nitrogen 30 mg/dL (7-18); Bicarbonate 30 mmol/L (21-32); Ferritin 1874.5 ng/mL (8-388); Glucose Level 141 mg/dL (74-106); Potassium 3.7 mmol/L (3.5-5.1); Sodium Level 143 mmol/L (136-145)
[2020-09-30] MEDS: THIAMINE HCL 100 MG TABLET PO SCH ×2 (08:25→19:37)
[2020-09-30] MEDS: VITAMIN D 1000 UNIT TAB PO SCH (08:25)
[2020-09-30] MEDS: POTASSIUM 25 MEQ EFFERV TAB PO ONE (08:25)
[2020-09-30] MEDS: ZINC SULFATE 220 MG CAP PO SCH (08:25)
[2020-09-30] MEDS: ASCORBIC ACID 500 MG TABLET PO SCH ×4 (08:25→19:37)
[2020-09-30] MEDS: RIVAROXABAN 20 MG TABLET PO SCH (16:46)
[2020-09-30] MEDS: ATORVASTATIN 20 MG TAB PO SCH (19:37)
[2020-10-01] MEDS: METHYLPREDNISOLONE 40 MG INJ IV SCH ×2 (00:14→07:29)
[2020-10-01 05:16] LABS: Absolute Lymphocytes (CBC) 1.2 K/uL (0.7-4.9); Basophils % 0.2 % (0-1.3); Hematocrit 35.8 % (36.0-45.0); Lymphocytes % 11.2 % (15.3-44.8); MPV 8.5 fL (7.6-11.3); RBC Red Blood Cell Count 4.31 M/uL (3.86-4.86)
[2020-10-01 05:40] LABS: BUN Blood Urea Nitrogen 24 mg/dL (7-18); Bicarbonate 32 mmol/L (21-32); Ferritin 1797.4 ng/mL (8-388); Glucose Level 145 mg/dL (74-106); Magnesium 2.7 mg/dL (1.8-2.4); Sodium Level 145 mmol/L (136-145)
--- NOTE | 2020-10-01 05:55 | P.PN ---
Subjective Date of Service: 10/01/20 Chief Complaint: COVID-19 pneumonia Subjective: Other (Patient remained stable. Still with some desaturations with exertion) Physical Examination - Vital Signs Temperature: 96.9 F Blood Pressure: 119/53 Pulse: 72 Respirations: 25 Pulse Ox (%): 92 Assessment & Plan Discharge Plan: Home Plan to discharge in: 24 Hours Physician Review Additional Text: COVID: Positive CXR: COMPARISON: Chest Single View dated 08/18/2020 FINDINGS: Portable technique limits examination quality. The lungs are underinflated which results in vascular crowding. The heart is moderately enlarged in size. Degenerative changes are present both shoulders. IMPRESSION: No acute intrathoracic process suspected CT abdomen: COMPARISON: CTA August 18, 2020, CT abdomen and pelvis April 18, 2018 report only CLINICAL HISTORY: Vomiting;Abd pain TECHNIQUE: CT of the abdomen and pelvis was acquired without IV contrast ma terial. Coronal and sagittal reconstructions were obtained. Automated exposure control was utilized on this examination as a dose lowering technique. FINDINGS: Lung bases: Bibasilar pulmonary fibrosis is present. Cardiomegaly. *Evaluation of solid organs is limited due to lack of IV contrast. Liver: Normal. Gallbladder and biliary: Cholecystectomy. Unremarkable biliary tree. Pancreas: Normal. Spleen: Normal. Adrenal glands: Normal adrenal glands. Kidneys: Normal kidneys Stomach and Small Bowel: Small hiatal hernia. Urinary bladder: Normal. Uterus and Adnexa: A small uterine fibroid is noted. Colon and Appendix: Severe descending colon diverticulosis. No evidence of appendicitis. Retroperitoneum and lymph nodes: Mesenteric lymph nodes are increased in number but not in size. Mild central mesenteric fat stranding is noted. Vascular: Moderate multivessel calcified atherosclerosis. Peritoneal cavity: No ascites or free air. Musculoskeletal and soft tissues: There is a 4.0 cm lipoma in the left ventral abdominal musculature. Lumbar spondylosis. No aggressive bone lesions. No compression fracture. IMPRESSION: 1. 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 2. Pulmonary fibrosis. 3. Cardiomegaly. 4. Severe colonic diverticulosis. 5. Moderate atherosclerosis. CT Chest: CLINICAL HISTORY: Hypoxia TECHNIQUE: CT images through the chest without IV contrast. Multiplanar reformats. Automated exposure control was utilized on this examination as a dose lowering technique. CT CHEST FINDINGS: Heart and mediastinum: Heart size is enlarged. No lymphadenopathy. Moderate multivessel calcified atherosclerosis. Thyroid gland: Visualized portions are normal. Lungs: Multifocal bilateral glass opacities are present. Bilateral lower lobe fibrosis is noted. Airways: No filling defects. No bronchiectasis. Pleura: No pneumothorax. No significant pleural effusion. Subphrenic structures: Cholecystectomy. Musculoskeletal and soft tissues: Bilateral shoulder degenerative change. Thoracic spondylosis is present with anterior osteophytes. IMPRESSION: 1. Multifocal pneumonia. Commonly reported imaging features of COVID-19 pneumonia are present. Other processes such as influenza pneumonia and organizing pneumonia, as can be seen with drug toxicity and connective tissue disease, can cause similar imaging pattern. 2. Bilateral lower lobe fibrosis. 3. Cardiomegaly. 4. Moderate atherosclerosis. Follow-up chest x-ray: COMPARISON: Chest Single View dated 09/29/2020; Chest Single View dated 09/28/2020; Chest Single View dated 08/18/2020; Thorax Wo Con dated 09/28/2020 FINDINGS: Bilateral airspace disease which is similar to 09/29/2020. Cardiomegaly.No acute osseous abnormality. No significant pleural effusions or pneumothorax. IMPRESSION: No significant change compared with 09/29/2020 with mild bilateral airspace disease. Physical exam: General: Alert, In no apparent distress, Oriented x3 HEENT: Atraumatic, PERRLA, Mucous membr. moist/pink, EOMI, Sclerae nonicteric Neck: Supple, 2+ carotid pulse no bruit, No LAD, Without JVD or thyroid abnormality Respiratory: Patient without significant distress. Currently on 3 to 4 L. Cardiovascular: Regular rate/rhythm, Normal S1 S2 Gastrointestinal: Normal bowel sounds, No tenderness Musculoskeletal: No tenderness Integumentary: No rashes Neurological: Normal speech, Normal strength at 5/5 x4 extr, Normal tone, Normal affect Lymphatics: No axilla or inguinal lymphadenopathy Assessment: Acute hypoxic respiratory failure secondary to COVID-19 pneumonia Nausea, vomiting secondary to above Acute kidney injury Hypertension Hyperlipidemia Chronic anticoagulation therapy Plan: Acute hypoxic respiratory failure secondary to COVID-19 pneumonia: Patient continues to improve. Currently on 3 to 4 L. Still with some desaturations with exertion or movement. Physical therapy to continue to work with patient. Will monitor oxygen. Will change IV steroids to oral. Continue with supplementation. Anticipate continued improvement. Encourage incentive spirometer, ambulation and proning. Likely home tomorrow with better strength. Home tomorrow if able to ambulate without significant desaturations. I will turn the service over to the hospitalist team tomorrow. I will go plan of care with him. Nausea, vomiting secondary to above: No more pain noted. Patient tolerating diet.. Acute kidney injury: Renal function improved. Off IV fluids. Blood pressure medications have been discontinued. Hypertension: Patient takes multiple medications at home. No need for blood pressure medication at this time. Continue to hold metoprolol, hydrochlorothiazide, Norvasc, losartan. Hyperlipidemia: Continue with medicationLipitor Chronic anticoagulation therapy: Continue with medicationXarelto DVT PPX: Xarelto Code status: Full Discharge Plan: Home Plan to discharge in: 24 hours Time Spent Managing Pts Care (In Minutes): 55
[2020-10-01] MEDS: THIAMINE HCL 100 MG TABLET PO SCH ×2 (07:29→19:50)
[2020-10-01] MEDS: ASCORBIC ACID 500 MG TABLET PO SCH ×4 (07:29→19:50)
--- NOTE | 2020-10-01 07:39 | RAD REPORT ---
EXAM DESCRIPTION: RAD - Chest Single View - 10/01/2020 6:53 am CLINICAL HISTORY: Follow-up Covid COMPARISON: Chest Single View dated 09/29/2020; Chest Single View dated 09/28/2020; Chest Single View da asif 08/18/2020; Thorax Wo Con dated 09/28/2020 FINDINGS: Bilateral airspace disease which is similar to 09/29/2020. Cardiomegaly.No acute osseous a bnormality. No significant pleural effusions or pneumothorax. IMPRESSION: No significant change compared with 09/29/2020 with mild bilateral airspace disease.
[2020-10-01] MEDS: ZINC SULFATE 220 MG CAP PO SCH (07:55)
[2020-10-01] MEDS: VITAMIN D 1000 UNIT TAB PO SCH (09:34)
[2020-10-01] MEDS: IVERMECTIN 3 MG TABLET PO SCH (12:11)
[2020-10-01] MEDS: RIVAROXABAN 20 MG TABLET PO SCH (18:30)
[2020-10-01] MEDS: predniSONE 20 MG TAB PO SCH (19:50)
[2020-10-01] MEDS: ATORVASTATIN 20 MG TAB PO SCH (19:50)
[2020-10-02 06:12] LABS: Absolute Lymphocytes (CBC) 1.3 K/uL (0.7-4.9); Basophils % 0.2 % (0-1.3); Hematocrit 37.5 % (36.0-45.0); Lymphocytes % 10.7 % (15.3-44.8); MPV 8.4 fL (7.6-11.3)
[2020-10-02] MEDS: ASCORBIC ACID 500 MG TABLET PO SCH ×4 (08:37→19:59)
[2020-10-02] MEDS: ZINC SULFATE 220 MG CAP PO SCH (08:37)
[2020-10-02] MEDS: VITAMIN D 1000 UNIT TAB PO SCH (08:37)
[2020-10-02] MEDS: THIAMINE HCL 100 MG TABLET PO SCH ×2 (08:37→19:59)
[2020-10-02] MEDS: predniSONE 20 MG TAB PO SCH ×2 (08:40→19:59)
[2020-10-02 10:47] LABS: BUN Blood Urea Nitrogen 20 mg/dL (7-18); Bicarbonate 32 mmol/L (21-32); Glucose Level 135 mg/dL (74-106); Magnesium 2.7 mg/dL (1.8-2.4); Potassium 3.6 mmol/L (3.5-5.1); Sodium Level 147 mmol/L (136-145)
[2020-10-02] MEDS: RIVAROXABAN 20 MG TABLET PO SCH (16:50)
[2020-10-02] MEDS: ATORVASTATIN 20 MG TAB PO SCH (19:59)
[2020-10-03 06:40] LABS: Absolute Lymphocytes (CBC) 1.5 K/uL (0.7-4.9); Basophils % 0.2 % (0-1.3); Hematocrit 37.3 % (36.0-45.0); MPV 8.4 fL (7.6-11.3); RBC Red Blood Cell Count 4.46 M/uL (3.86-4.86)
[2020-10-03 06:45] LABS: BUN Blood Urea Nitrogen 16 mg/dL (7-18); Bicarbonate 31 mmol/L (21-32); Glucose Level 121 mg/dL (74-106); Magnesium 2.6 mg/dL (1.8-2.4); Potassium 3.6 mmol/L (3.5-5.1); Sodium Level 148 mmol/L (136-145)
[2020-10-03] MEDS: VITAMIN D 1000 UNIT TAB PO SCH (08:27)
[2020-10-03] MEDS: THIAMINE HCL 100 MG TABLET PO SCH ×2 (08:28→19:57)
[2020-10-03] MEDS: ASCORBIC ACID 500 MG TABLET PO SCH ×4 (08:28→19:57)
[2020-10-03] MEDS: predniSONE 20 MG TAB PO SCH ×2 (08:28→19:57)
[2020-10-03] MEDS: ZINC SULFATE 220 MG CAP PO SCH (08:28)
[2020-10-03] MEDS ORDERED: POTASSIUM 25 MEQ EFFERV TAB PO ONE (09:00)
[2020-10-03] MEDS: RIVAROXABAN 20 MG TABLET PO SCH (16:58)
[2020-10-03] MEDS: ATORVASTATIN 20 MG TAB PO SCH (19:57)
[2020-10-04] MEDS: ASCORBIC ACID 500 MG TABLET PO SCH ×4 (08:29→21:42)
[2020-10-04] MEDS: VITAMIN D 1000 UNIT TAB PO SCH (08:29)
[2020-10-04] MEDS: THIAMINE HCL 100 MG TABLET PO SCH ×2 (08:29→21:42)
[2020-10-04] MEDS: ZINC SULFATE 220 MG CAP PO SCH (08:29)
[2020-10-04] MEDS: predniSONE 20 MG TAB PO SCH ×2 (08:29→21:43)
[2020-10-04] MEDS ORDERED: D5W 1,000 ML IV SCH (09:00)
--- NOTE | 2020-10-04 15:53 | P.PN ---
Subjective Date of Service: 10/02/20 Patient doing well with no new complaints. Clinically slowly improving. Review of Systems 10-point ROS is otherwise unremarkable Physical Examination - Vital Signs Temperature: 97.7 F Blood Pressure: 152/84 Pulse: 88 Respirations: 24 Pulse Ox (%): 90 - Physical Exam General: Alert, In no apparent distress, Oriented x3 Respiratory: Diminished Cardiovascular: Regular rate/rhythm, Normal S1 S2, No murmurs Gastrointestinal: Normal bowel sounds, Soft and benign, Non-distended, No tenderness Musculoskeletal: No clubbing, No swelling, No tenderness Integumentary: No rashes Neurological: Normal speech, Normal tone, Normal affect Lymphatics: No axilla or inguinal lymphadenopathy - Studies Medications List Reviewed: Yes Assessment & Plan - Problems (Diagnosis) (1) Pneumonia due to COVID-19 virus Current Visit: Yes Status: Acute - Plan 1. Continue with IV steroids 2. Monitor inflammatory markers 3. Repeat chest x-ray as needed 4. O2 per protocol 5. Pulmonary consultation appreciated 6. Continue with albuterol inhaler therapy; also supportive care 7. GI and DVT prophylaxis Discharge Plan: Home Plan to discharge in: Greater than 2 days - Advance Directives Does patient have a Living Will: No Does patient have a Durable POA for Healthcare: No - Code Status/Comfort Care Code Status Assessed: Yes Code Status: Full Code Critical Care: No Time Spent Managing PTS Care (In Minutes): 35
--- NOTE | 2020-10-04 15:54 | P.PN ---
Date of Service: 10/03/20 Subjective Patient with no significant changes. Oxygenation has improved. Anticipate discharge over 48 hr Review of Systems 10-point ROS is otherwise unremarkable Physical Examination - Vital Signs Reviewed - Physical Exam General: Alert, In no apparent distress, Oriented x3 Respiratory: Diminished Cardiovascular: Regular rate/rhythm, Normal S1 S2, No murmurs Gastrointestinal: Normal bowel sounds, Soft and benign, Non-distended, No tenderness Musculoskeletal: No clubbing, No swelling, No tenderness Assessment & Plan - Problems (Diagnosis) (1) Pneumonia due to COVID-19 virus Current Visit: Yes Status: Acute - Plan Continue with plan of care as mentioned below: 1. Continue with IV steroids 2. Monitor inflammatory markers 3. Repeat chest x-ray as needed 4. O2 per protocol 5. Pulmonary consultation appreciated 6. Continue with albuterol inhaler therapy; also supportive care 7. GI and DVT prophylaxis
--- NOTE | 2020-10-04 15:55 | P.PN ---
Date of Service: 10/04/20 Subjective Occasionally have been able to get down of 4-5 L. Hopefully we can discharge over the next 24 hr Review of Systems 10-point ROS is otherwise unremarkable Physical Examination - Vital Signs Reviewed - Physical Exam General: Alert, In no apparent distress, Oriented x3 Respiratory: Diminished Cardiovascular: Regular rate/rhythm, Normal S1 S2, No murmurs Gastrointestinal: Normal bowel sounds, Soft and benign, Non-distended, No tenderness Musculoskeletal: No clubbing, No swelling, No tenderness Assessment & Plan - Problems (Diagnosis) (1) Pneumonia due to COVID-19 virus Current Visit: Yes Status: Acute - Plan Continue with plan of care as mentioned below: 1. Continue with IV steroids 2. Monitor inflammatory markers 3. Repeat chest x-ray as needed 4. O2 per protocol 5. Pulmonary consultation appreciated 6. Continue with albuterol inhaler therapy; also supportive care 7. GI and DVT prophylaxis
[2020-10-04] MEDS: RIVAROXABAN 20 MG TABLET PO SCH (16:52)
[2020-10-04] MEDS: ATORVASTATIN 20 MG TAB PO SCH (21:42)
[2020-10-04] MEDS: ACETAMINOPHEN 500 MG TAB PO PRN (23:50)
[2020-10-05] MEDS: ACETAMINOPHEN 500 MG TAB PO PRN (05:43)
[2020-10-05 06:49] LABS: Absolute Lymphocytes (CBC) 1.3 K/uL (0.7-4.9); Basophils % 0.3 % (0-1.3); Hematocrit 36.3 % (36.0-45.0); Lymphocytes % 13.4 % (15.3-44.8); MPV 8.2 fL (7.6-11.3); RBC Red Blood Cell Count 4.36 M/uL (3.86-4.86)
[2020-10-05 07:10] LABS: ALT/SGPT 43 U/L (12-78); AST/SGOT 37 U/L (15-37); Albumin 2.8 g/dL (3.4-5.0); Alkaline Phosphatase 83 U/L (45-117); BUN Blood Urea Nitrogen 16 mg/dL (7-18); Bicarbonate 29 mmol/L (21-32); Bilirubin Total 1.6 mg/dL (0.2-1.0); Ferritin 1248.4 ng/mL (8-388); Glucose Level 165 mg/dL (74-106); Potassium 3.6 mmol/L (3.5-5.1); Protein, Total 6.9 g/dL (6.4-8.2); Sodium Level 141 mmol/L (136-145)
[2020-10-05] MEDS: ZINC SULFATE 220 MG CAP PO SCH (08:09)
[2020-10-05] MEDS: VITAMIN D 1000 UNIT TAB PO SCH (08:09)
[2020-10-05] MEDS: predniSONE 20 MG TAB PO SCH ×2 (08:09→21:00)
[2020-10-05] MEDS: THIAMINE HCL 100 MG TABLET PO SCH ×2 (08:10→21:00)
[2020-10-05] MEDS: ASCORBIC ACID 500 MG TABLET PO SCH ×4 (08:10→21:00)
--- NOTE | 2020-10-05 16:53 | RAD REPORT ---
EXAM DESCRIPTION: CT - Head Brain Wo Cont - 10/05/2020 4:47 pm CLINICAL HISTORY: AMS COMPARISON: HEAD BRAIN W O CONTRAST dated 11/01/2008No comparisons TECHNIQUE: Axial 5 mm thick images of the head were obtained without IV contrast. All CT scans are performed using dose optimization technique as appropriate and may include automated exposure control or mA/KV adjustment according to patient size. FINDINGS: No intracranial hemorrhage, mass, edema or shift of mid-line structures. No acute infarcti on changes seen. No abnormal extra-axial fluid collections. Mild for age atrophy changes are present with ventricles in proportion. Chronic ischemic changes are seen in the cerebral white matter. Arteri al and physiologic calcifications are present. Mastoid air cells and visualized portions of the paranasal sinuses are clear. No acute bony findings. IMPRESSION: Negative non-contrast CT head examination for acute finding. Mild for age atrophy and chronic ischemic change.
[2020-10-05] MEDS: RIVAROXABAN 20 MG TABLET PO SCH (17:12)
[2020-10-05] MEDS: NA CHLORIDE 0.9% 1,000 ML IV SCH (18:33)
[2020-10-05] MEDS ORDERED: WATER FOR INJ,STERILE 10 ML IV SCH (20:00)
[2020-10-05] MEDS ORDERED: HYDROCORTISONE SUC 100 MG INJ IV ONE (20:00)
[2020-10-05] MEDS: ATORVASTATIN 20 MG TAB PO SCH (21:00)
[2020-10-05] MEDS: CEFTRIAXONE/SWI 1gm 1 GM/10 ML SYR IVP SCH (22:03)
[2020-10-05] MEDS: ENSURE ENLIVE 237 ML CAN PO SCH (22:04)
[2020-10-06] MEDS: NA CHLORIDE 0.9% 1,000 ML IV SCH ×3 (04:32→23:34)
[2020-10-06 05:49] LABS: Urine Appearance CLEAR (Clear); Urine Bilirubin NEGATIVE (Negative); Urine Blood NEGATIVE (Negative); Urine Color YELLOW (Yellow); Urine Glucose NEGATIVE (Negative); Urine Protein NEGATIVE (Negative)
[2020-10-06 06:04] LABS: Urine Amorphous Sediment 2+ /HPF (NONE SEEN); Urine Bacteria >50 /HPF (<20); Urine Mucus 3+ /HPF (NONE SEEN); Urine RBC <5 /HPF (NONE SEEN)
[2020-10-06 06:21] LABS: Absolute Lymphocytes (CBC) 1.1 K/uL (0.7-4.9); Basophils % 0.4 % (0-1.3); Hematocrit 36.7 % (36.0-45.0); Lymphocytes % 13.6 % (15.3-44.8); MPV 8.1 fL (7.6-11.3); RBC Red Blood Cell Count 4.42 M/uL (3.86-4.86)
[2020-10-06 06:43] LABS: ALT/SGPT 37 U/L (12-78); AST/SGOT 28 U/L (15-37); Albumin 2.5 g/dL (3.4-5.0); Alkaline Phosphatase 83 U/L (45-117); BUN Blood Urea Nitrogen 18 mg/dL (7-18); Bicarbonate 29 mmol/L (21-32); Bilirubin Total 1.2 mg/dL (0.2-1.0); Ferritin 972.2 ng/mL (8-388); Glucose Level 101 mg/dL (74-106); Potassium 3.6 mmol/L (3.5-5.1); Protein, Total 6.5 g/dL (6.4-8.2); Sodium Level 144 mmol/L (136-145)
[2020-10-06 06:57] LABS: Phosphorus 3.5 mg/dL (2.5-4.9)
[2020-10-06] MEDS: ENSURE ENLIVE 237 ML CAN PO SCH ×2 (09:00→19:35)
[2020-10-06] MEDS ORDERED: POTASSIUM CL SA 10 MEQ TAB PO ONE (09:00)
[2020-10-06] MEDS: VITAMIN D 1000 UNIT TAB PO SCH (09:00)
[2020-10-06] MEDS: THIAMINE HCL 100 MG TABLET PO SCH ×2 (09:19→19:35)
[2020-10-06] MEDS: predniSONE 20 MG TAB PO SCH ×2 (09:20→19:35)
[2020-10-06] MEDS: ASCORBIC ACID 500 MG TABLET PO SCH ×4 (09:20→19:35)
[2020-10-06] MEDS: ZINC SULFATE 220 MG CAP PO SCH (09:20)
[2020-10-06] MEDS: CEFTRIAXONE/SWI 1gm 1 GM/10 ML SYR IVP SCH ×2 (09:20→19:35)
[2020-10-06] MEDS ORDERED: HYDROCORTISONE SUC 100 MG INJ IV ONE (10:25)
--- NOTE | 2020-10-06 10:34 | P.PN ---
Date of Service: 10/05/20 Subjective Patient altered today. Patient confused. Not really interacting with me like she has been. CT of the brain pending. Urine microscopy pending. Start antibiotics. Will need physical therapy evaluation as well Review of Systems 10-point ROS is otherwise unremarkable Physical Examination - Vital Signs Reviewed - Physical Exam General: Alert, In no apparent distress, Oriented x3 Respiratory: Diminished Cardiovascular: Regular rate/rhythm, Normal S1 S2, No murmurs Gastrointestinal: Normal bowel sounds, Soft and benign, Non-distended, No tenderness Musculoskeletal: No clubbing, No swelling, No tenderness Assessment & Plan - Problems (Diagnosis) (1) Pneumonia due to COVID-19 virus Current Visit: Yes Status: Acute - Plan Continue with plan of care as mentioned below: 1. Continue with IV steroids 2. Monitor inflammatory markers 3. Repeat chest x-ray as needed 4. O2 per protocol 5. Pulmonary consultation appreciated 6. Continue with albuterol inhaler therapy; also supportive care 7. GI and DVT prophylaxis
[2020-10-06] MEDS: ALBUTEROL 2.5 MG/3 ML NEB SOL NEB SCH ×2 (15:06→20:00)
[2020-10-06] MEDS: RIVAROXABAN 20 MG TABLET PO SCH (16:35)
[2020-10-06] MEDS: ATORVASTATIN 20 MG TAB PO SCH (19:35)
[2020-10-07] MEDS: ALBUTEROL 2.5 MG/3 ML NEB SOL NEB SCH ×4 (02:30→21:00)
[2020-10-07 06:00] LABS: Basophils % 0.3 % (0-1.3); Hematocrit 34.7 % (36.0-45.0); Lymphocytes % 14.5 % (15.3-44.8); MPV 8.1 fL (7.6-11.3); RBC Red Blood Cell Count 4.18 M/uL (3.86-4.86)
[2020-10-07 06:23] LABS: ALT/SGPT 36 U/L (12-78); AST/SGOT 31 U/L (15-37); Albumin 2.5 g/dL (3.4-5.0); Alkaline Phosphatase 79 U/L (45-117); BUN Blood Urea Nitrogen 13 mg/dL (7-18); Bicarbonate 25 mmol/L (21-32); Ferritin 893.5 ng/mL (8-388); Glucose Level 99 mg/dL (74-106); Potassium 3.3 mmol/L (3.5-5.1); Protein, Total 6.1 g/dL (6.4-8.2); Sodium Level 142 mmol/L (136-145)
[2020-10-07] MEDS: THIAMINE HCL 100 MG TABLET PO SCH ×2 (07:27→21:05)
[2020-10-07] MEDS: VITAMIN D 1000 UNIT TAB PO SCH (07:27)
[2020-10-07] MEDS: predniSONE 20 MG TAB PO SCH ×2 (07:27→21:05)
[2020-10-07] MEDS: ZINC SULFATE 220 MG CAP PO SCH (07:27)
[2020-10-07] MEDS: ASCORBIC ACID 500 MG TABLET PO SCH ×4 (07:27→21:05)
[2020-10-07] MEDS: ENSURE ENLIVE 237 ML CAN PO SCH ×2 (07:28→21:00)
--- NOTE | 2020-10-07 07:31 | P.PN ---
Date of Service: 10/06/20 Subjective Patient mental status is back to normal. CT scan was negative. UA did not really indicate any significant leukocytosis. I did give patient extra dose of antibiotic therapy. She is getting out of bed and to the bedside commode. Her strength is gradually improving and we will get physical therapy evaluation. Will discuss with respiratory therapy to aggressively try to titrate her oxygen down Review of Systems 10-point ROS is otherwise unremarkable Physical Examination - Vital Signs Reviewed - Physical Exam General: Alert, In no apparent distress, Oriented x2-3; senile dementia Respiratory: Diminished Cardiovascular: Regular rate/rhythm, Normal S1 S2, No murmurs Gastrointestinal: Normal bowel sounds, Soft and benign, Non-distended, No tenderness Musculoskeletal: No clubbing, No swelling, No tenderness Assessment & Plan - Problems (Diagnosis) (1) Pneumonia due to COVID-19 virus Current Visit: Yes Status: Acute - Plan Continue with plan of care as mentioned below: 1. Continue with IV steroids; will try to start weaning this down. Inflammatory markers were increase so I did give her an extra dose of steroids. 2. Continue to monitor inflammatory markers 3. Repeat chest x-ray as needed 4. O2 per protocol; we need to aggressively try to get her oxygenation improved 5. Pulmonary consultation appreciated 6. Continue with albuterol inhaler therapy; also supportive care 7. GI and DVT prophylaxis
[2020-10-07] MEDS: CEFTRIAXONE/SWI 1gm 1 GM/10 ML SYR IVP SCH ×2 (08:18→21:04)
[2020-10-07] MEDS ORDERED: POTASSIUM CL SA 10 MEQ TAB PO ONE ×2 (09:00→16:18)
[2020-10-07] MEDS ORDERED: POTASSIUM 25 MEQ EFFERV TAB PO ONE (11:23)
--- NOTE | 2020-10-07 11:23 | P.PN ---
Subjective Date of Service: 10/07/20 Chief Complaint: COVID-19 pneumonia Subjective: No new changes, No C/O voiced Physical Examination - Vital Signs Temperature: 98 F Blood Pressure: 156/83 Pulse: 89 Respirations: 30 Pulse Ox (%): 88 - Physical Exam General: Alert, In no apparent distress, Oriented x3 HEENT: Atraumatic, Normocephalic, PERRLA Neck: Supple, 2+ carotid pulse no bruit, JVD not distended Respiratory: Normal air movement, Diminished Cardiovascular: No edema, Regular rate/rhythm, Normal S1 S2 Gastrointestinal: Normal bowel sounds, Soft and benign, Non-distended Integumentary: No rashes, No breakdown, No significant lesion - Studies Medications List Reviewed: Yes Assessment And Plan Physician Review Additional Text: COVID: Positive Assessment: Acute hypoxic respiratory failure secondary to COVID-19 pneumonia Nausea, vomiting secondary to above Acute kidney injury Hypertension Hyperlipidemia Chronic anticoagulation therapy Plan: A O2 weaned down to 10 L nasal cannula, improving clinically Continue steroids Continue DVT and GI prophylaxis Blood pressure at target, continue current regimen Continue incentive spirometry Patient states she is able to ambulate independently, continue increase exercises advised Continue PT We will replace potassium today, follow magnesium level Still elevated ferritin as well as CRP, continue to follow Follow-up plan to discharge when tolerating nasal 4 L nasal cannula O2 Patient as well as daughterwho she lives with but also admitted discussed with Hyperlipidemia: Continue with medicationLipitor Chronic anticoagulation therapy: Continue with medicationXarelto DVT PPX: Xarelto Code status: Full Discharge Plan: Home Plan to discharge in: 72 hours
[2020-10-07 11:45] LABS: Blood Morphology Comment NOT SEEN (NOT SEEN); Platelet Estimate ADEQ
[2020-10-07] MEDS: RIVAROXABAN 20 MG TABLET PO SCH (16:07)
[2020-10-07] MEDS: ATORVASTATIN 20 MG TAB PO SCH (21:05)
[2020-10-08] MEDS: ALBUTEROL 2.5 MG/3 ML NEB SOL NEB SCH ×4 (03:00→21:40)
[2020-10-08 03:59] LABS: Absolute Lymphocytes (CBC) 1.3 K/uL (0.7-4.9); Basophils % 0.3 % (0-1.3); Hematocrit 34.9 % (36.0-45.0); Lymphocytes % 9.7 % (15.3-44.8); MPV 8.4 fL (7.6-11.3); RBC Red Blood Cell Count 4.22 M/uL (3.86-4.86)
[2020-10-08 04:23] LABS: BUN Blood Urea Nitrogen 15 mg/dL (7-18); Bicarbonate 27 mmol/L (21-32); Ferritin 861.6 ng/mL (8-388); Glucose Level 95 mg/dL (74-106); Potassium 3.9 mmol/L (3.5-5.1); Sodium Level 142 mmol/L (136-145)
--- NOTE | 2020-10-08 06:14 | P.PN ---
Subjective Date of Service: 10/08/20 Chief Complaint: COVID-19 pneumonia Subjective: Improving, Other (Patient reports improvement. Currently on 10 L per nasal cannula.) Physical Examination - Vital Signs Temperature: 97.2 F Blood Pressure: 133/64 Pulse: 98 Respirations: 18 Pulse Ox (%): 91 - Studies Medications List Reviewed: Yes Assessment & Plan Discharge Plan: LTAC Plan to discharge in: 48 Hours Physician Review Additional Text: COVID: Positive CXR: COMPARISON: Chest Single View dated 08/18/2020 FINDINGS: Portable technique limits examination quality. The lungs are underinflated which results in vascular crowding. The heart is moderately enlarged in size. Degenerative changes are present both shoulders. IMPRESSION: No acute intrathoracic process suspected CT abdomen: COMPARISON: CTA August 18, 2020, CT abdomen and pelvis April 18, 2018 report only CLINICAL HISTORY: Vomiting;Abd pain TECHNIQUE: CT of the abdomen and pelvis was acquired without IV contrast material. Coronal and sagittal reconstructions were obtained. Automated exposure control was utilized on this examination as a dose lowering technique. FINDINGS: Lung bases: Bibasilar pulmonary fibrosis is present. Cardiomegaly. *Evaluation of solid organs is limited due to lack of IV contrast. Liver: Normal. Gallbladder and biliary: Cholecystectomy. Unremarkable biliary tree. Pancreas: Normal. Spleen: Normal. Adrenal glands: Normal adrenal glands. Kidneys: Normal kidneys Stomach and Small Bowel: Small hiatal hernia. Urinary bladder: Normal. Uterus and Adnexa: A small uterine fibroid is noted. Colon and Appendix: Severe descending colon diverticulosis. No evidence of appendicitis. Retroperitoneum and lymph nodes: Mesenteric lymph nodes are increased in number but not in size. Mild central mesenteric fat stranding is noted. Vascular: Moderate multivessel calcified atherosclerosis. Peritoneal cavity: No ascites or free air. Musculoskeletal and soft tissues: There is a 4.0 cm lipoma in the left ventral abdominal musculature. Lumbar spondylosis. No aggressive bone lesions. No compression fracture. IMPRESSION: 1. 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 2. Pulmonary fibrosis. 3. Cardiomegaly. 4. Severe colonic diverticulosis. 5. Moderate atherosclerosis. CT Chest: CLINICAL HISTORY: Hypoxia TECHNIQUE: CT images through the chest without IV contrast. Multiplanar reformats. Automated exposure control was utilized on this examination as a dose lowering technique. CT CHEST FINDINGS: Heart and mediastinum: Heart size is enlarged. No lymphadenopathy. Moderate multivessel calcified atherosclerosis. Thyroid gland: Visualized portions are normal. Lungs: Multifocal bilateral glass opacities are present. Bilateral lower lobe fibrosis is noted. Airways: No filling defects. No bronchiectasis. Pleura: No pneumothorax. No significant pleural effusion. Subphrenic structures: Cholecystectomy. Musculoskeletal and soft tissues: Bilateral shoulder degenerative change. Thoracic spondylosis is present with anterior osteophytes. IMPRESSION: 1. Multifocal pneumonia. Commonly reported imaging features of COVID-19 pneumonia are present. Other processes such as influenza pneumonia and organizing pneumonia, as can be seen with drug toxicity and connective tissue disease, can cause similar imaging pattern. 2. Bilateral lower lobe fibrosis. 3. Cardiomegaly. 4. Moderate atherosclerosis. Follow-up chest x-ray: COMPARISON: Chest Single View dated 09/29/2020; Chest Single View dated 09/28/2020; Chest Single View dated 08/18/2020; Thorax Wo Con dated 09/28/2020 FINDINGS: Bilateral airspace disease which is similar to 09/29/2020. Cardiomegaly.No acute osseous abnormality. No significant pleural effusions or pneumothorax. IMPRESSION: No significant change compared with 09/29/2020 with mild bilateral airspace disease. Physical exam: General: Alert, In no apparent distress, Oriented x3 HEENT: Atraumatic, PERRLA, Mucous membr. moist/pink, EOMI, Sclerae nonicteric Neck: Supple, 2+ carotid pulse no bruit, No LAD, Without JVD or thyroid abnormality Respiratory: Overall improved. Currently on 10 L per nasal cannula. Cardiovascular: Regular rate/rhythm, Normal S1 S2 Gastrointestinal: Normal bowel sounds, No tenderness Musculoskeletal: No tenderness Integumentary: No rashes Neurological: Normal speech, Normal strength at 5/5 x4 extr, Normal tone, Normal affect Lymphatics: No axilla or inguinal lymphadenopathy Assessment: Acute hypoxic respiratory failure secondary to COVID-19 pneumonia Nausea, vomiting secondary to above Acute kidney injury Hypertension Hyperlipidemia Chronic anticoagulation therapy Plan: Acute hypoxic respiratory failure secondary to COVID-19 pneumonia: Patient continues to improve. Currently on 10 L per nasal cannula. Patient proning this morning. Continue incentive spirometer, ambulation and proning. Decrease IV steroid to twice daily. Will advance diet. Spoke with daughter about the possibility of long-term acute care facility placement to help with her endurance and rehab. Daughter agreeable. We will pursue this with the help of social media marketer. Physical therapy and Occupational Therapy consulted to help ambulate. Nausea, vomiting secondary to above: Will advanced diet Acute kidney injury: Renal function stable Hypertension: Patient takes multiple medications at home. No need for blood pressure medication at this time. Continue to hold metoprolol, hydrochlorothiazide, Norvasc, losartan. Hyperlipidemia: Continue with medicationLipitor Chronic anticoagulation therapy: Continue with medicationXarelto DVT PPX: Xarelto Code status: Full Discharge Plan: Long-term acute care facility placement Time Spent Managing Pts Care (In Minutes): 55
[2020-10-08] MEDS: ENSURE ENLIVE 237 ML CAN PO SCH ×2 (08:16→21:00)
[2020-10-08] MEDS: VITAMIN D 1000 UNIT TAB PO SCH (08:16)
[2020-10-08] MEDS: THIAMINE HCL 100 MG TABLET PO SCH ×2 (08:16→21:32)
[2020-10-08] MEDS: CEFTRIAXONE/SWI 1gm 1 GM/10 ML SYR IVP SCH ×2 (08:17→21:31)
[2020-10-08] MEDS: ASCORBIC ACID 500 MG TABLET PO SCH ×4 (08:17→21:32)
[2020-10-08] MEDS: ZINC SULFATE 220 MG CAP PO SCH (08:17)
[2020-10-08] MEDS ORDERED: MAGNESIUM SULFATE 1 gm IVPB 1 GM/100 ML BAG IV ONE (13:00)
[2020-10-08] MEDS ORDERED: POTASSIUM CL SA 10 MEQ TAB PO ONE (13:00)
[2020-10-08] MEDS: RIVAROXABAN 20 MG TABLET PO SCH (16:36)
[2020-10-08] MEDS: METHYLPREDNISOLONE 40 MG INJ IV SCH (21:31)
[2020-10-08] MEDS: ATORVASTATIN 20 MG TAB PO SCH (21:32)
[2020-10-09] MEDS: ALBUTEROL 2.5 MG/3 ML NEB SOL NEB SCH ×2 (02:00→08:50)
[2020-10-09 04:03] LABS: Absolute Lymphocytes (CBC) 0.9 K/uL (0.7-4.9); Basophils % 0.2 % (0-1.3); Hematocrit 35.5 % (36.0-45.0); Lymphocytes % 7.6 % (15.3-44.8); RBC Red Blood Cell Count 4.27 M/uL (3.86-4.86)
[2020-10-09 04:23] LABS: ALT/SGPT 44 U/L (12-78); AST/SGOT 30 U/L (15-37); Albumin 2.6 g/dL (3.4-5.0); Alkaline Phosphatase 84 U/L (45-117); BUN Blood Urea Nitrogen 14 mg/dL (7-18); Bicarbonate 26 mmol/L (21-32); Bilirubin Total 1.1 mg/dL (0.2-1.0); Ferritin 818.7 ng/mL (8-388); Glucose Level 150 mg/dL (74-106); Magnesium 2.1 mg/dL (1.8-2.4); Potassium 3.9 mmol/L (3.5-5.1); Protein, Total 6.7 g/dL (6.4-8.2); Sodium Level 141 mmol/L (136-145)
--- NOTE | 2020-10-09 06:22 | P.PN ---
Subjective Date of Service: 10/09/20 Chief Complaint: COVID-19 pneumonia Subjective: Other (Patient reports improvement. Currently on 15 L/nonrebreather) Physical Examination - Vital Signs Temperature: 97.7 F Blood Pressure: 119/74 Pulse: 97 Respirations: 18 Pulse Ox (%): 96 - Studies Medications List Reviewed: Yes Assessment & Plan Discharge Plan: LTAC Plan to discharge in: 48 Hours Physician Review Additional Text: COVID: Positive CXR: COMPARISON: Chest Single View dated 08/18/2020 FINDINGS: Portable technique limits examination quality. The lungs are underinflated which results in vascular crowding. The heart is moderately enlarged in size. Degenerative changes are present both shoulders. IMPRESSION: No acute intrathoracic process suspected CT abdomen: COMPARISON: CTA August 18, 2020, CT abdomen and pelvis April 18, 2018 report only CLINICAL HISTORY: Vomiting;Abd pain TECHNIQUE: CT of the abdomen and pelvis was acquired without IV contrast material. Coronal and sagittal reconstructions were obtained. Automated exposure control was utilized on this examination as a dose lowering technique. FINDINGS: Lung bases: Bibasilar pulmonary fibrosis is present. Cardiomegaly. *Evaluation of solid organs is limited due to lack of IV contrast. Liver: Normal. Gallbladder and biliary: Cholecystectomy. Unremarkable biliary tree. Pancreas: Normal. Spleen: Normal. Adrenal glands: Normal adrenal glands. Kidneys: Normal kidneys Stomach and Small Bowel: Small hiatal hernia. Urinary bladder: Normal. Uterus and Adnexa: A small uterine fibroid is noted. Colon and Appendix: Severe descending colon diverticulosis. No evidence of appendicitis. Retroperitoneum and lymph nodes: Mesenteric lymph nodes are increased in number but not in size. Mild central mesenteric fat stranding is noted. Vascular: Moderate multivessel calcified atherosclerosis. Peritoneal cavity: No ascites or free air. Musculoskeletal and soft tissues: There is a 4.0 cm lipoma in the left ventral abdominal musculature. Lumbar spondylosis. No aggressive bone lesions. No compression fracture. IMPRESSION: 1. 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 2. Pulmonary fibrosis. 3. Cardiomegaly. 4. Severe colonic diverticulosis. 5. Moderate atherosclerosis. CT Chest: CLINICAL HISTORY: Hypoxia TECHNIQUE: CT images through the chest without IV contrast. Multiplanar reformats. Automated exposure control was utilized on this examination as a dose lowering technique. CT CHEST FINDINGS: Heart and mediastinum: Heart size is enlarged. No lymphadenopathy. Moderate multivessel calcified atherosclerosis. Thyroid gland: Visualized portions are normal. Lungs: Multifocal bilateral glass opacities are present. Bilateral lower lobe fibrosis is noted. Airways: No filling defects. No bronchiectasis. Pleura: No pneumothorax. No significant pleural effusion. Subphrenic structures: Cholecystectomy. Musculoskeletal and soft tissues: Bilateral shoulder degenerative change. Thoracic spondylosis is present with anterior osteophytes. IMPRESSION: 1. Multifocal pneumonia. Commonly reported imaging features of COVID-19 pneumonia are present. Other processes such as influenza pneumonia and organizing pneumonia, as can be seen with drug toxicity and connective tissue disease, can cause similar imaging pattern. 2. Bilateral lower lobe fibrosis. 3. Cardiomegaly. 4. Moderate atherosclerosis. CT head: COMPARISON: HEAD BRAIN W O CONTRAST dated 11/01/2008No comparisons TECHNIQUE: Axial 5 mm thick images of the head were obtained without IV contrast. All CT scans are performed using dose optimization technique as appropriate and may include automated exposure control or mA/KV adjustment according to patient size. FINDINGS: No intracranial hemorrhage, mass, edema or shift of mid-line structures. No acute infarction changes seen. No abnormal extra-axial fluid collections. Mild for age atrophy changes are present with ventricles in proportion. Chronic ischemic changes are seen in the cerebral white matter. Arterial and physiologic calcifications are present. Mastoid air cells and visualized portions of the paranasal sinuses are clear. No acute bony findings. IMPRESSION: Negative non-contrast CT head examination for acute finding. Mild for age atrophy and chronic ischemic change. Physical exam: General: Patient alert, cooperative. Patient reports improvement HEENT: Atraumatic, PERRLA, Mucous membr. moist/pink, EOMI, Sclerae nonicteric Neck: Supple, 2+ carotid pulse no bruit, No LAD, Without JVD or thyroid abnormality Respiratory: Overall improved. 15 L/nonrebreather Cardiovascular: Regular rate/rhythm, Normal S1 S2 Gastrointestinal: Normal bowel sounds, No tenderness Musculoskeletal: No tenderness Integumentary: No rashes Neurological: Normal speech, Normal strength at 5/5 x4 extr, Normal tone, Normal affect Lymphatics: No axilla or inguinal lymphadenopathy Assessment: Acute hypoxic respiratory failure secondary to COVID-19 pneumonia Nausea, vomiting secondary to above Acute kidney injury Hypertension Hyperlipidemia Chronic anticoagulation therapy UTI, urine culture positive for E. coli, Enterococcus Plan: Acute hypoxic respiratory failure secondary to COVID-19 pneumonia: Patient reports improvement. Clinically stable. Currently on 15 L/nonrebreather. Continue IV steroids and supplements. Continue incentive spirometer, ambulation and proning. Continue to wean off oxygen. Maintain sats above 93%. Physical therapy to continue. Spoke with daughter about the possibility of long-term acute care facility placement to help with her endurance and rehab. Patient and daughter in agreement. Await approval for long-term acute care fa cility placement. Nausea, vomiting secondary to above: Patient tolerating diet. Acute kidney injury: Renal function stable Hypertension: Patient takes multiple medications at home. Blood pressure stable off medication. Continue to monitor closely. If blood pressure maintains above 140/90 then will need to restart one of her medications. Continue to hold metoprolol, hydrochlorothiazide, Norvasc, losartan. Hyperlipidemia: Continue with medicationLipitor 20 mg daily Chronic anticoagulation therapy: Continue with medicationXarelto 20 mg daily UTI, urine culture positive for E. coli, Enterococcus: Patient currently on Rocephin. Repeat urine culture negative. Continue treatment for 7 days. Continue with medication for 2 more days. DVT PPX: Xarelto Code status: Full Discharge Plan: Long-term acute care facility placement Time Spent Managing Pts Care (In Minutes): 55
[2020-10-09] MEDS: CEFTRIAXONE/SWI 1gm 1 GM/10 ML SYR IVP SCH ×2 (08:45→20:15)
[2020-10-09] MEDS: THIAMINE HCL 100 MG TABLET PO SCH ×2 (08:46→20:15)
[2020-10-09] MEDS: ZINC SULFATE 220 MG CAP PO SCH (08:46)
[2020-10-09] MEDS: METHYLPREDNISOLONE 40 MG INJ IV SCH ×2 (08:46→20:16)
[2020-10-09] MEDS: VITAMIN D 1000 UNIT TAB PO SCH (08:46)
[2020-10-09] MEDS: ENSURE ENLIVE 237 ML CAN PO SCH ×2 (08:46→20:16)
[2020-10-09] MEDS: ASCORBIC ACID 500 MG TABLET PO SCH ×4 (08:46→20:15)
--- NOTE | 2020-10-09 14:37 | RAD REPORT ---
EXAM DESCRIPTION: RAD - Chest Single View - 10/09/2020 2:13 pm CLINICAL HISTORY: COVID-19 pneumonia COMPARISON: Portable October 01 TECHNIQUE: AP portable chest image was obtained 10/09/2020 2:13 pm . FINDINGS: Interstitial and alveolar opacities in the mid and lower left lung field are similar or sl ightly worse than the October 01 imaging. Alveolar opacity in the lateral right lung field have show a greater progression. Trachea remains in the midline. Heart and vasculature are normal. No measurable pleural effusion and no pneumothorax. No acute bony abnormality seen. No acute aortic findings suspec asif. IMPRESSION: Progressive COVID-19 pneumonia findings, worse on the right.
[2020-10-09] MEDS: RIVAROXABAN 20 MG TABLET PO SCH (16:03)
[2020-10-09] MEDS: ATORVASTATIN 20 MG TAB PO SCH (20:16)
--- NOTE | 2020-10-09 21:47 | P.PN ---
Subjective Date of Service: 10/09/20 Chief Complaint: COVID-19 pneumonia Subjective: Improving (Still weak and SOb) Review of Systems General: Weakness Respiratory: Shortness of Breath Physical Examination - Vital Signs Temperature: 97.7 F Blood Pressure: 138/65 Pulse: 55 Respirations: 20 Pulse Ox (%): 97 - Physical Exam General: Alert, Oriented x3, Cooperative - Studies Medications List Reviewed: Yes Assessment & Plan - Problems (Diagnosis) (1) Pneumonia due to COVID-19 virus Current Visit: Yes Status: Acute Plan: resp failure/improving/ titrate sat to 90%/labs rev
[2020-10-10 03:53] LABS: Hematocrit 33.3 % (36.0-45.0); RBC Red Blood Cell Count 4.01 M/uL (3.86-4.86)
[2020-10-10 03:54] LABS: Absolute Lymphocytes (CBC) 1.1 K/uL (0.7-4.9); Basophils % 0.3 % (0-1.3); Lymphocytes % 8.4 % (15.3-44.8); MPV 8.3 fL (7.6-11.3)
[2020-10-10 04:09] LABS: ALT/SGPT 39 U/L (12-78); AST/SGOT 22 U/L (15-37); Albumin 2.4 g/dL (3.4-5.0); Alkaline Phosphatase 74 U/L (45-117); BUN Blood Urea Nitrogen 23 mg/dL (7-18); Bicarbonate 30 mmol/L (21-32); Bilirubin Total 0.7 mg/dL (0.2-1.0); Ferritin 718.8 ng/mL (8-388); Glucose Level 151 mg/dL (74-106); Magnesium 2.2 mg/dL (1.8-2.4); Potassium 3.9 mmol/L (3.5-5.1); Sodium Level 143 mmol/L (136-145)
--- NOTE | 2020-10-10 06:08 | P.PN ---
Subjective Date of Service: 10/10/20 Chief Complaint: COVID-19 pneumonia Subjective: Improving (Stable on 15 L) Physical Examination - Vital Signs Temperature: 97 F Blood Pressure: 113/56 Pulse: 72 Respirations: 20 Pulse Ox (%): 93 - Studies Medications List Reviewed: Yes Assessment & Plan Discharge Plan: LTAC Plan to discharge in: 24 Hours Physician Review Additional Text: COVID: Positive CXR: COMPARISON: Chest Single View dated 08/18/2020 FINDINGS: Portable technique limits examination quality. The lungs are underinflated which results in vascular crowding. The heart is moderately enlarged in size. Degenerative changes are present both shoulders. IMPRESSION: No acute intrathoracic process suspected CT abdomen: COMPARISON: CTA August 18, 2020, CT abdomen and pelvis April 18, 2018 report only CLINICAL HISTORY: Vomiting;Abd pain TECHNIQUE: CT of the abdomen and pelvis was acquired without IV contrast material. Coronal and sagittal reconstructions were obtained. Automated exposure control was utilized on this examination as a dose lowering technique. FINDINGS: Lung bases: Bibasilar pulmonary fibrosis is present. Cardiomegaly. *Evaluation of solid organs is limited due to lack of IV contrast. Liver: Normal. Gallbladder and biliary: Cholecystectomy. Unremarkable biliary tree. Pancreas: Normal. Spleen: Normal. Adrenal glands: Normal adrenal glands. Kidneys: Normal kidneys Stomach and Small Bowel: Small hiatal hernia. Urinary bladder: Normal. Uterus and Adnexa: A small uterine fibroid is noted. Colon and Appendix: Severe descending colon diverticulosis. No evidence of appendicitis. Retroperitoneum and lymph nodes: Mesenteric lymph nodes are increased in number but not in size. Mild central mesenteric fat stranding is noted. Vascular: Moderate multivessel calcified atherosclerosis. Peritoneal cavity: No ascites or free air. Musculoskeletal and soft tissues: There is a 4.0 cm lipoma in the left ventral abdominal musculature. Lumbar spondylosis. No aggressive bone lesions. No compression fracture. IMPRESSION: 1. 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 2. Pulmonary fibrosis. 3. Cardiomegaly. 4. Severe colonic diverticulosis. 5. Moderate atherosclerosis. CT Chest: CLINICAL HISTORY: Hypoxia TECHNIQUE: CT images through the chest without IV contrast. Multiplanar reformats. Automated exposure control was utilized on this examination as a dose lowering technique. CT CHEST FINDINGS: Heart and mediastinum: Heart size is enlarged. No lymphadenopathy. Moderate multivessel calcified atherosclerosis. Thyroid gland: Visualized portions are normal. Lungs: Multifocal bilateral glass opacities are present. Bilateral lower lobe fibrosis is noted. Airways: No filling defects. No bronchiectasis. Pleura: No pneumothorax. No significant pleural effusion. Subphrenic structures: Cholecystectomy. Musculoskeletal and soft tissues: Bilateral shoulder degenerative change. Thoracic spondylosis is present with anterior osteophytes. IMPRESSION: 1. Multifocal pneumonia. Commonly reported imaging features of COVID-19 pneumonia are present. Other processes such as influenza pneumonia and organizing pneumonia, as can be seen with drug toxicity and connective tissue disease, can cause similar imaging pattern. 2. Bilateral lower lobe fibrosis. 3. Cardiomegaly. 4. Moderate atherosclerosis. CT head: COMPARISON: HEAD BRAIN W O CONTRAST dated 11/01/2008No comparisons TECHNIQUE: Axial 5 mm thick images of the head were obtained without IV contrast. All CT scans are performed using dose optimization technique as appropriate and may include automated exposure control or mA/KV adjustment according to patient size. FINDINGS: No intracranial hemorrhage, mass, edema or shift of mid-line structures. No acute infarction changes seen. No abnormal extra-axial fluid collections. Mild for age atrophy changes are present with ventricles in proportion. Chronic ischemic changes are seen in the cerebral white matter. Arterial and physiologic calcifications are present. Mastoid air cells and visualized portions of the paranasal sinuses are clear. No acute bony findings. IMPRESSION: Negative non-contrast CT head examination for acute finding. Mild for age atrophy and chronic ischemic change. Physical exam: General: Patient alert, cooperative. Patient reports improvement HEENT: Atraumatic, PERRLA, Mucous membr. moist/pink, EOMI, Sclerae nonicteric Neck: Supple, 2+ carotid pulse no bruit, No LAD, Without JVD or thyroid abnormality Respiratory: Overall improved. 15 L/nonrebreather Cardiovascular: Regular rate/rhythm, Normal S1 S2 Gastrointestinal: Normal bowel sounds, No tenderness Musculoskeletal: No tenderness Integumentary: No rashes Neurological: Normal speech, Normal strength at 5/5 x4 extr, Normal tone, Normal affect Lymphatics: No axilla or inguinal lymphadenopathy Assessment: Acute hypoxic respiratory failure secondary to COVID-19 pneumonia Nausea, vomiting secondary to above Acute kidney injury Hypertension Hyperlipidemia Chronic anticoagulation therapy UTI, urine culture positive for E. coli, Enterococcus Plan: Acute hypoxic respiratory failure secondary to COVID-19 pneumonia: Patient stable. Slow improvement noted. Currently on 15 L/nonrebreather. Continue IV steroids and supplements. Continue incentive spirometer, ambulation and proning. Continue to wean off oxygen. Maintain sats above 93%. Physical therapy to continue. Continue to pursue long-term acute care facility placement to help with her endurance and rehab. Patient and daughter in agreement. Await approval for long-term acute care facility placement. Nausea, vomiting secondary to above: Patient tolerating diet. Acute kidney injury: Renal function stable Hypertension: Patient takes multiple medications at home. Blood pressure stable off medication. Continue to monitor closely. If blood pressure maintains above 140/90 then will need to restart one of her medications. Continue to hold metoprolol, hydrochlorothiazide, Norvasc, losartan. Hyperlipidemia: Continue with medicationLipitor 20 mg daily Chronic anticoagulation therapy: Continue with medicationXarelto 20 mg daily UTI, urine culture positive for E. coli, Enterococcus: Patient currently on Rocephin. Repeat urine culture negative. Continue treatment for 7 days. Continue with medication for 2 more days. DVT PPX: Xarelto Code status: Full Discharge Plan: Long-term acute care facility placement Time Spent Managing Pts Care (In Minutes): 55
[2020-10-10 06:31] VITALS: BMI 26.7
[2020-10-10] MEDS ORDERED: POTASSIUM CL SA 10 MEQ TAB PO ONE (09:00)
[2020-10-10] MEDS: ASCORBIC ACID 500 MG TABLET PO SCH ×4 (10:04→21:27)
[2020-10-10] MEDS: ZINC SULFATE 220 MG CAP PO SCH (10:04)
[2020-10-10] MEDS: VITAMIN D 1000 UNIT TAB PO SCH (10:04)
[2020-10-10] MEDS: THIAMINE HCL 100 MG TABLET PO SCH ×2 (10:04→21:27)
[2020-10-10] MEDS: METHYLPREDNISOLONE 40 MG INJ IV SCH ×2 (10:05→21:26)
[2020-10-10] MEDS: CEFTRIAXONE/SWI 1gm 1 GM/10 ML SYR IVP SCH ×2 (10:05→21:27)
[2020-10-10] MEDS: ENSURE ENLIVE 237 ML CAN PO SCH ×2 (10:06→21:00)
[2020-10-10] MEDS: RIVAROXABAN 20 MG TABLET PO SCH (16:45)
[2020-10-10] MEDS: ATORVASTATIN 20 MG TAB PO SCH (21:26)
[2020-10-11 04:26] LABS: Absolute Lymphocytes (CBC) 0.9 K/uL (0.7-4.9); Basophils % 0.2 % (0-1.3); Hematocrit 36.5 % (36.0-45.0); Lymphocytes % 5.8 % (15.3-44.8); MPV 8.2 fL (7.6-11.3)
[2020-10-11 04:42] LABS: ALT/SGPT 47 U/L (12-78); AST/SGOT 23 U/L (15-37); Albumin 2.7 g/dL (3.4-5.0); Alkaline Phosphatase 80 U/L (45-117); BUN Blood Urea Nitrogen 29 mg/dL (7-18); Bicarbonate 28 mmol/L (21-32); Bilirubin Total 0.8 mg/dL (0.2-1.0); Ferritin 842.4 ng/mL (8-388); Glucose Level 131 mg/dL (74-106); Magnesium 2.4 mg/dL (1.8-2.4); Potassium 3.7 mmol/L (3.5-5.1); Protein, Total 6.9 g/dL (6.4-8.2); Sodium Level 147 mmol/L (136-145)
[2020-10-11 05:06] LABS: Blood Morphology Comment NOT SEEN (NOT SEEN); Platelet Estimate ADEQ
[2020-10-11] MEDS ORDERED: POTASSIUM CL SA 10 MEQ TAB PO ONE (06:08)
[2020-10-11] MEDS: D5W 1,000 ML IV SCH (06:24)
--- NOTE | 2020-10-11 07:29 | RAD REPORT ---
EXAM DESCRIPTION: RAD - Chest Single View - 10/11/2020 6:57 am CLINICAL HISTORY: follow up COVID COMPARISON: Chest Single View dated 10/09/2020; Chest Single View dated 10/01/2020; Chest Single View d ated 09/29/2020; Chest Single View dated 09/28/2020 FINDINGS: Mild improved aeration in the right lung compared with prior though there are still widesp read bilateral airspace disease which are moderate in severity. The heart size is within normal limit s.No acute osseous abnormality. No significant pleural effusions or pneumothorax. IMPRESSION: Mild improved aeration of the right lung but otherwise similar multifocal airspace disea se consistent with pneumonia.
[2020-10-11] MEDS: ASCORBIC ACID 500 MG TABLET PO SCH ×4 (08:16→21:57)
[2020-10-11] MEDS: THIAMINE HCL 100 MG TABLET PO SCH ×2 (08:16→21:57)
[2020-10-11] MEDS: ZINC SULFATE 220 MG CAP PO SCH (08:16)
[2020-10-11] MEDS: CEFTRIAXONE/SWI 1gm 1 GM/10 ML SYR IVP SCH ×2 (08:16→21:57)
[2020-10-11] MEDS: VITAMIN D 1000 UNIT TAB PO SCH (08:16)
[2020-10-11] MEDS: METHYLPREDNISOLONE 40 MG INJ IV SCH ×2 (08:16→21:57)
[2020-10-11] MEDS: ENSURE ENLIVE 237 ML CAN PO SCH ×2 (08:17→21:00)
--- NOTE | 2020-10-11 15:23 | P.PN ---
Subjective Date of Service: 10/11/20 Chief Complaint: COVID-19 pneumonia Subjective: Other (Now on HF at 100%. But stable.) Physical Examination - Vital Signs Temperature: 96.8 F Blood Pressure: 143/84 Pulse: 85 Respirations: 23 Pulse Ox (%): 93 - Studies Medications List Reviewed: Yes Assessment & Plan Discharge Plan: LTAC Plan to discharge in: 72 Hours Physician Review Additional Text: COVID: Positive CXR: COMPARISON: Chest Single View dated 08/18/2020 FINDINGS: Portable technique limits examination quality. The lungs are underinflated which results in vascular crowding. The heart is moderately enlarged in size. Degenerative changes are present both shoulders. IMPRESSION: No acute intrathoracic process suspected CT abdomen: COMPARISON: CTA August 18, 2020, CT abdomen and pelvis April 18, 2018 report only CLINICAL HISTORY: Vomiting;Abd pain TECHNIQUE: CT of the abdomen and pelvis was acquired without IV contrast material. Coronal and sagittal reconstructions were obtained. Automated exposure control was utilized on this examination as a dose lowering technique. FINDINGS: Lung bases: Bibasilar pulmonary fibrosis is present. Cardiomegaly. *Evaluation of solid organs is limited due to lack of IV contrast. Liver: Normal. Gallbladder and biliary: Cholecystectomy. Unremarkable biliary tree. Pancreas: Normal. Spleen: Normal. Adrenal glands: Normal adrenal glands. Kidneys: Normal kidneys Stomach and Small Bowel: Small hiatal hernia. Urinary bladder: Normal. Uterus and Adnexa: A small uterine fibroid is noted. Colon and Appendix: Severe descending colon diverticulosis. No evidence of appendicitis. Retroperitoneum and lymph nodes: Mesenteric lymph nodes are increased in number but not in size. Mild central mesenteric fat stranding is noted. Vascular: Moderate multivessel calcified atherosclerosis. Peritoneal cavity: No ascites or free air. Musculoskeletal and soft tissues: There is a 4.0 cm lipoma in the left ventral abdominal musculature. Lumbar spondylosis. No aggressive bone lesions. No compression fracture. IMPRESSION: 1. 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 2. Pulmonary fibrosis. 3. Cardiomegaly. 4. Severe colonic diverticulosis. 5. Moderate atherosclerosis. CT Chest: CLINICAL HISTORY: Hypoxia TECHNIQUE: CT images through the chest without IV contrast. Multiplanar reformats. Automated exposure control was utilized on this examination as a dose lowering technique. CT CHEST FINDINGS: Heart and mediastinum: Heart size is enlarged. No lymphadenopathy. Moderate multivessel calcified atherosclerosis. Thyroid gland: Visualized portions are normal. Lungs: Multifocal bilateral glass opacities are present. Bilateral lower lobe fibrosis is noted. Airways: No filling defects. No bronchiectasis. Pleura: No pneumothorax. No significant pleural effusion. Subphrenic structures: Cholecystectomy. Musculoskeletal and soft tissues: Bilateral shoulder degenerative change. Thoracic spondylosis is present with anterior osteophytes. IMPRESSION: 1. Multifocal pneumonia. Commonly reported imaging features of COVID-19 pneumonia are present. Other processes such as influenza pneumonia and organizing pneumonia, as can be seen with drug toxicity and connective tissue disease, can cause similar imaging pattern. 2. Bilateral lower lobe fibrosis. 3. Cardiomegaly. 4. Moderate atherosclerosis. CT head: COMPARISON: HEAD BRAIN W O CONTRAST dated 11/01/2008No comparisons TECHNIQUE: Axial 5 mm thick images of the head were obtained without IV contrast. All CT scans are performed using dose optimization technique as appropriate and may include automated exposure control or mA/KV adjustment according to patient size. FINDINGS: No intracranial hemorrhage, mass, edema or shift of mid-line structures. No acute infarction changes seen. No abnormal extra-axial fluid collections. Mild for age atrophy changes are present with ventricles in proportion. Chronic ischemic changes are seen in the cerebral white matter. Arterial and physiologic calcifications are present. Mastoid air cells and visualized portions of the paranasal sinuses are clear. No acute bony findings. IMPRESSION: Negative non-contrast CT head examination for acute finding. Mild for age atrophy and chronic ischemic change. Follow up CXR 10/11/2020: COMPARISON: Chest Single View dated 10/09/2020; Chest Single View dated 10/01/2020; Chest Single View dated 09/29/2020; Chest Single View dated 09/28/2020 FINDINGS: Mild improved aeration in the right lung compared with prior though there are still widespread bilateral airspace disease which are moderate in severity. The heart size is within normal limits.No acute osseous abnormality. No significant pleural effusions or pneumothorax. IMPRESSION: Mild improved aeration of the right lung but otherwise similar multifocal airspace disease consistent with pneumonia. Physical exam: General: Patient alert, cooperative. Patient reports improvement HEENT: Atraumatic, PERRLA, Mucous membr. moist/pink, EOMI, Sclerae nonicteric Neck: Supple, 2+ carotid pulse no bruit, No LAD, Without JVD or thyroid abnormality Respiratory: Overall stable on HF at 100% Cardiovascular: Regular rate/rhythm, Normal S1 S2 Gastrointestinal: Normal bowel sounds, No tenderness Musculoskeletal: No tenderness Integumentary: No rashes Neurological: Normal speech, Normal strength at 5/5 x4 extr, Normal tone, Normal affect Lymphatics: No axilla or inguinal lymphadenopathy Assessment: Acute hypoxic respiratory failure secondary to COVID-19 pneumonia Nausea, vomiting secondary to above Acute kidney injury Hypertension Hyperlipidemia Chronic anticoagulation therapy UTI, urine culture positive for E. coli, Enterococcus Leukocytosis Plan: Acute hypoxic respiratory failure secondary to COVID-19 pneumonia: Patient stable. Slow improvement noted. Currently stable. Currently on HF at 100%. Set back noted overnight. Will need to monitor closely. Patient with Hypernatremia. Will Start D5W. Continue IV steroids and supplements. Continue incentive spirometer, ambulation and proning. Continue to wean off oxygen. Maintain sats above 93%. Physical therapy to continue. Continue to pursue long-term acute care facility placement to help with her endurance and rehab. Patient and daughter in agreement. Await approval for long-term acute care facility placement. Nausea, vomiting secondary to above: Patient tolerating diet. Acute kidney injury: Renal function stable Hypertension: Patient takes multiple medications at home. Blood pressure stable off medication. Continue to monitor closely. If blood pressure maintains above 140/90 then will need to restart one of her medications. Continue to hold metoprolol, hydrochlorothiazide, Norvasc, losartan. Hyperlipidemia: Continue with medicationLipitor 20 mg daily Chronic anticoagulation therapy: Continue with medicationXarelto 20 mg daily UTI, urine culture positive for E. coli, Enterococcus: Patient currently on Rocephin. Repeat urine culture negative. Continue treatment for 7 days. Continue with medication for 2 more days. Leukocytosis: Noted today. Will restart Rocephin. Will discuss with Pulmonary. DVT PPX: Xarelto Code status: Full Discharge Plan: Long-term acute care facility placement Time Spent Managing Pts Care (In Minutes): 55
[2020-10-11] MEDS: RIVAROXABAN 20 MG TABLET PO SCH (17:25)
[2020-10-11] MEDS: ATORVASTATIN 20 MG TAB PO SCH (21:57)
[2020-10-12] MEDS: D5W 1,000 ML IV SCH (02:11)
[2020-10-12 03:55] LABS: Absolute Lymphocytes (CBC) 0.9 K/uL (0.7-4.9); Basophils % 0.4 % (0-1.3); Hematocrit 32.8 % (36.0-45.0); Lymphocytes % 5.7 % (15.3-44.8); MPV 8.2 fL (7.6-11.3); RBC Red Blood Cell Count 3.95 M/uL (3.86-4.86)
[2020-10-12 04:37] LABS: ALT/SGPT 44 U/L (12-78); AST/SGOT 22 U/L (15-37); Albumin 2.5 g/dL (3.4-5.0); Alkaline Phosphatase 71 U/L (45-117); BUN Blood Urea Nitrogen 27 mg/dL (7-18); Bicarbonate 28 mmol/L (21-32); Bilirubin Total 0.8 mg/dL (0.2-1.0); Ferritin 740.7 ng/mL (8-388); Glucose Level 157 mg/dL (74-106); Magnesium 2.3 mg/dL (1.8-2.4); Potassium 3.8 mmol/L (3.5-5.1); Protein, Total 6.2 g/dL (6.4-8.2); Sodium Level 143 mmol/L (136-145)
--- NOTE | 2020-10-12 06:16 | P.PN ---
Subjective Date of Service: 10/12/20 Chief Complaint: COVID-19 pneumonia Subjective: Other (Patient slowly improving. Now down to 85% high flow) Physical Examination - Vital Signs Temperature: 97.2 F Blood Pressure: 147/78 Pulse: 88 Respirations: 17 Pulse Ox (%): 92 - Studies Medications List Reviewed: Yes Assessment & Plan Discharge Plan: LTAC Plan to discharge in: 48 Hours Physician Review Additional Text: COVID: Positive CXR: COMPARISON: Chest Single View dated 08/18/2020 FINDINGS: Portable technique limits examination quality. The lungs are underinflated which results in vascular crowding. The heart is moderately enlarged in size. Degenerative changes are present both shoulders. IMPRESSION: No acute intrathoracic process suspected CT abdomen: COMPARISON: CTA August 18, 2020, CT abdomen and pelvis April 18, 2018 report only CLINICAL HISTORY: Vomiting;Abd pain TECHNIQUE: CT of the abdomen and pelvis was acquired without IV contrast material. Coronal and sagittal reconstructions were obtained. Automated exposure control was utilized on this examination as a dose lowering technique. FINDINGS: Lung bases: Bibasilar pulmonary fibrosis is present. Cardiomegaly. *Evaluation of solid organs is limited due to lack of IV contrast. Liver: Normal. Gallbladder and biliary: Cholecystectomy. Unremarkable biliary tree. Pancreas: Normal. Spleen: Normal. Adrenal glands: Normal adrenal glands. Kidneys: Normal kidneys Stomach and Small Bowel: Small hiatal hernia. Urinary bladder: Normal. Uterus and Adnexa: A small uterine fibroid is noted. Colon and Appendix: Severe descending colon diverticulosis. No evidence of appendicitis. Retroperitoneum and lymph nodes: Mesenteric lymph nodes are increased in number but not in size. Mild central mesenteric fat stranding is noted. Vascular: Moderate multivessel calcified atherosclerosis. Peritoneal cavity: No ascites or free air. Musculoskeletal and soft tissues: There is a 4.0 cm lipoma in the left ventral abdominal musculature. Lumbar spondylosis. No aggressive bone lesions. No compression fracture. IMPRESSION: 1. 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 2. Pulmonary fibrosis. 3. Cardiomegaly. 4. Severe colonic diverticulosis. 5. Moderate atherosclerosis. CT Chest: CLINICAL HISTORY: Hypoxia TECHNIQUE: CT images through the chest without IV contrast. Multiplanar reformats. Automated exposure control was utilized on this examination as a dose lowering technique. CT CHEST FINDINGS: Heart and mediastinum: Heart size is enlarged. No lymphadenopathy. Moderate multivessel calcified atherosclerosis. Thyroid gland: Visualized portions are normal. Lungs: Multifocal bilateral glass opacities are present. Bilateral lower lobe fibrosis is noted. Airways: No filling defects. No bronchiectasis. Pleura: No pneumothorax. No significant pleural effusion. Subphrenic structures: Cholecystectomy. Musculoskeletal and soft tissues: Bilateral shoulder degenerative change. Thoracic spondylosis is present with anterior osteophytes. IMPRESSION: 1. Multifocal pneumonia. Commonly reported imaging features of COVID-19 pneumonia are present. Other processes such as influenza pneumonia and organizing pneumonia, as can be seen with drug toxicity and connective tissue disease, can cause similar imaging pattern. 2. Bilateral lower lobe fibrosis. 3. Cardiomegaly. 4. Moderate atherosclerosis. CT head: COMPARISON: HEAD BRAIN W O CONTRAST dated 11/01/2008No comparisons TECHNIQUE: Axial 5 mm thick images of the head were obtained without IV contrast. All CT scans are performed using dose optimization technique as appropriate and may include automated exposure control or mA/KV adjustment according to patient size. FINDINGS: No intracranial hemorrhage, mass, edema or shift of mid-line structures. No acute infarction changes seen. No abnormal extra-axial fluid collections. Mild for age atrophy changes are present with ventricles in proportion. Chronic ischemic changes are seen in the cerebral white matter. Arterial and physiologic calcifications are present. Mastoid air cells and visualized portions of the paranasal sinuses are clear. No acute bony findings. IMPRESSION: Negative non-contrast CT head examination for acute finding. Mild for age atrophy and chronic ischemic change. Follow up CXR 10/11/2020: COMPARISON: Chest Single View dated 10/09/2020; Chest Single View dated 10/01/2020; Chest Single View dated 09/29/2020; Chest Single View dated 09/28/2020 FINDINGS: Mild improved aeration in the right lung compared with prior though there are still widespread bilateral airspace disease which are moderate in severity. The heart size is within normal limits.No acute osseous abnormality. No significant pleural effusions or pneumothorax. IMPRESSION: Mild improved aeration of the right lung but otherwise similar multifocal airspace disease consistent with pneumonia. Physical exam: General: Patient alert, cooperative. Patient reports improvement HEENT: Neck supple Respiratory: Overall improved. Now down to high flow 85% Cardiovascular: Regular rate/rhythm, Normal S1 S2 Gastrointestinal: Normal bowel sounds, No tenderness Musculoskeletal: No tenderness Integumentary: No rashes Neurological: Normal speech, Normal strength at 5/5 x4 extr, Normal tone, Normal affect Lymphatics: No axilla or inguinal lymphadenopathy Assessment: Acute hypoxic respiratory failure secondary to COVID-19 pneumonia Nausea, vomiting secondary to above Acute kidney injury Hypertension Hyperlipidemia Chronic anticoagulation therapy UTI, urine culture positive for E. coli, Enterococcus Leukocytosis Plan: Acute hypoxic respiratory failure secondary to COVID-19 pneumonia: Slight improvement noted. Currently down to high flow at 85%. Discontinue IV fluids. Continue IV steroids and supplements. Continue incentive spirometer, ambulation and proning. Continue to wean off oxygen. Maintain sats above 93%. Physical therapy to continue. Continue to pursue long-term acute care facility placement to help with her endurance and rehab. Patient and daughter in agreement. Await approval for long-term acute care facility placement. Nausea, vomiting secondary to above: Patient tolerating diet. Acute kidney injury: Renal function stable Hypertension: Patient takes multiple medications at home. Blood pressure stable off medication. Continue to monitor closely. If blood pressure maintains above 140/90 then will need to restart one of her medications. Continue to hold metoprolol, hydrochlorothiazide, Norvasc, losartan. Hyperlipidemia: Continue with medicationLipitor 20 mg daily Chronic anticoagulation therapy: Continue with medicationXarelto 20 mg daily UTI, urine culture positive for E. coli, Enterococcus: Rocephin discontinued. Repeat urine culture negative. Patient treated for 7 days of medication for UTI Leukocytosis: Reviewed by pulmonology. Rocephin was discontinued. Patient on Diflucan. DVT PPX: Xarelto Code status: Full Discharge Plan: Long-term acute care facility placement Time Spent Managing Pts Care (In Minutes): 55
[2020-10-12] MEDS ORDERED: POTASSIUM CL SA 10 MEQ TAB PO ONE (09:00)
[2020-10-12] MEDS: METHYLPREDNISOLONE 40 MG INJ IV SCH ×2 (09:06→21:28)
[2020-10-12] MEDS: VITAMIN D 1000 UNIT TAB PO SCH (09:06)
[2020-10-12] MEDS: CEFTRIAXONE/SWI 1gm 1 GM/10 ML SYR IVP SCH (09:06)
[2020-10-12] MEDS: THIAMINE HCL 100 MG TABLET PO SCH ×2 (09:07→21:28)
[2020-10-12] MEDS: ZINC SULFATE 220 MG CAP PO SCH (09:07)
[2020-10-12] MEDS: ENSURE ENLIVE 237 ML CAN PO SCH ×2 (09:07→21:00)
[2020-10-12] MEDS: ASCORBIC ACID 500 MG TABLET PO SCH ×4 (09:07→21:28)
--- NOTE | 2020-10-12 14:10 | P.PN ---
Subjective Date of Service: 10/12/20 Chief Complaint: COVID-19 pneumonia Not doing well/ Not eating or drinking much Review of Systems General: Weakness Respiratory: Shortness of Breath Physical Examination - Vital Signs Temperature: 98.0 F Blood Pressure: 118/67 Pulse: 82 Respirations: 28 Pulse Ox (%): 93 - Physical Exam General: Alert - Studies Medications List Reviewed: Yes Assessment & Plan - Problems (Diagnosis) (1) Pneumonia due to COVID-19 virus Current Visit: Yes Status: Acute Plan: Not doign well/DC IV fluids/ DC IV rocephin/ Awaitng LTACCXRY mild improvement
[2020-10-12] MEDS: FLUCONAZOLE 100 MG TAB PO SCH (14:46)
[2020-10-12] MEDS: RIVAROXABAN 20 MG TABLET PO SCH (15:59)
[2020-10-12] MEDS: ATORVASTATIN 20 MG TAB PO SCH (21:28)
[2020-10-13] MEDS: BENZONATATE 100 MG CAP PO PRN (01:30)
[2020-10-13 04:23] LABS: Absolute Lymphocytes (CBC) 0.9 K/uL (0.7-4.9); Basophils % 0.3 % (0-1.3); Hematocrit 33.9 % (36.0-45.0); Lymphocytes % 5.8 % (15.3-44.8); MPV 8.2 fL (7.6-11.3); RBC Red Blood Cell Count 4.05 M/uL (3.86-4.86)
[2020-10-13 04:50] LABS: ALT/SGPT 55 U/L (12-78); AST/SGOT 31 U/L (15-37); Albumin 2.5 g/dL (3.4-5.0); Alkaline Phosphatase 77 U/L (45-117); BUN Blood Urea Nitrogen 25 mg/dL (7-18); Bicarbonate 29 mmol/L (21-32); Ferritin 738.6 ng/mL (8-388); Glucose Level 136 mg/dL (74-106); Magnesium 2.3 mg/dL (1.8-2.4); Potassium 3.8 mmol/L (3.5-5.1); Protein, Total 6.2 g/dL (6.4-8.2); Sodium Level 141 mmol/L (136-145)
[2020-10-13] MEDS ORDERED: POTASSIUM CL SA 10 MEQ TAB PO ONE (06:18)
--- NOTE | 2020-10-13 06:21 | P.PN ---
Subjective Date of Service: 10/13/20 Chief Complaint: COVID-19 pneumonia Subjective: Other (Overall stable. Currently on high flow at 100%) Physical Examination - Vital Signs Temperature: 96.9 F Blood Pressure: 144/68 Pulse: 88 Respirations: 18 Pulse Ox (%): 90 - Studies Medications List Reviewed: Yes Assessment & Plan Discharge Plan: LTAC Plan to discharge in: 48 Hours Physician Review Additional Text: COVID: Positive CXR: COMPARISON: Chest Single View dated 08/18/2020 FINDINGS: Portable technique limits examination quality. The lungs are underinflated which results in vascular crowding. The heart is moderately enlarged in size. Degenerative changes are present both shoulders. IMPRESSION: No acute intrathoracic process suspected CT abdomen: COMPARISON: CTA August 18, 2020, CT abdomen and pelvis April 18, 2018 report only CLINICAL HISTORY: Vomiting;Abd pain TECHNIQUE: CT of the abdomen and pelvis was acquired without IV contrast material. Coronal and sagittal reconstructions were obtained. Automated exposure control was utilized on this examination as a dose lowering technique. FINDINGS: Lung bases: Bibasilar pulmonary fibrosis is present. Cardiomegaly. *Evaluation of solid organs is limited due to lack of IV contrast. Liver: Normal. Gallbladder and biliary: Cholecystectomy. Unremarkable biliary tree. Pancreas: Normal. Spleen: Normal. Adrenal glands: Normal adrenal glands. Kidneys: Normal kidneys Stomach and Small Bowel: Small hiatal hernia. Urinary bladder: Normal. Uterus and Adnexa: A small uterine fibroid is noted. Colon and Appendix: Severe descending colon diverticulosis. No evidence of appendicitis. Retroperitoneum and lymph nodes: Mesenteric lymph nodes are increased in number but not in size. Mild central mesenteric fat stranding is noted. Vascular: Moderate multivessel calcified atherosclerosis. Peritoneal cavity: No ascites or free air. Musculoskeletal and soft tissues: There is a 4.0 cm lipoma in the left ventral abdominal musculature. Lumbar spondylosis. No aggressive bone lesions. No compression fracture. IMPRESSION: 1. 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 2. Pulmonary fibrosis. 3. Cardiomegaly. 4. Severe colonic diverticulosis. 5. Moderate atherosclerosis. CT Chest: CLINICAL HISTORY: Hypoxia TECHNIQUE: CT images through the chest without IV contrast. Multiplanar reformats. Automated exposure control was utilized on this examination as a dose lowering technique. CT CHEST FINDINGS: Heart and mediastinum: Heart size is enlarged. No lymphadenopathy. Moderate multivessel calcified atherosclerosis. Thyroid gland: Visualized portions are normal. Lungs: Multifocal bilateral glass opacities are present. Bilateral lower lobe fibrosis is noted. Airways: No filling defects. No bronchiectasis. Pleura: No pneumothorax. No significant pleural effusion. Subphrenic structures: Cholecystectomy. Musculoskeletal and soft tissues: Bilateral shoulder degenerative change. Thoracic spondylosis is present with anterior osteophytes. IMPRESSION: 1. Multifocal pneumonia. Commonly reported imaging features of COVID-19 pneumonia are present. Other processes such as influenza pneumonia and organizing pneumonia, as can be seen with drug toxicity and connective tissue disease, can cause similar imaging pattern. 2. Bilateral lower lobe fibrosis. 3. Cardiomegaly. 4. Moderate atherosclerosis. CT head: COMPARISON: HEAD BRAIN W O CONTRAST dated 11/01/2008No comparisons TECHNIQUE: Axial 5 mm thick images of the head were obtained without IV contrast. All CT scans are performed using dose optimization technique as appropriate and may include automated exposure control or mA/KV adjustment according to patient size. FINDINGS: No intracranial hemorrhage, mass, edema or shift of mid-line structures. No acute infarction changes seen. No abnormal extra-axial fluid collections. Mild for age atrophy changes are present with ventricles in proportion. Chronic ischemic changes are seen in the cerebral white matter. A rterial and physiologic calcifications are present. Mastoid air cells and visualized portions of the paranasal sinuses are clear. No acute bony findings. IMPRESSION: Negative non-contrast CT head examination for acute finding. Mild for age atrophy and chronic ischemic change. Follow up CXR 10/11/2020: COMPARISON: Chest Single View dated 10/09/2020; Chest Single View dated 10/01/2020; Chest Single View dated 09/29/2020; Chest Single View dated 09/28/2020 FINDINGS: Mild improved aeration in the right lung compared with prior though there are still widespread bilateral airspace disease which are moderate in severity. The heart size is within normal limits.No acute osseous abnormality. No significant pleural effusions or pneumothorax. IMPRESSION: Mild improved aeration of the right lung but otherwise similar multifocal airspace disease consistent with pneumonia. Physical exam: General: Patient alert, cooperative. Patient reports improvement HEENT: Neck supple Respiratory: Overall improved. High flow at 100% Cardiovascular: Regular rate/rhythm, Normal S1 S2 Gastrointestinal: Normal bowel sounds, No tenderness Musculoskeletal: No tenderness Integumentary: No rashes Neurological: Normal speech, Normal strength at 5/5 x4 extr, Normal tone, Normal affect Lymphatics: No axilla or inguinal lymphadenopathy Assessment: Acute hypoxic respiratory failure secondary to COVID-19 pneumonia Nausea, vomiting secondary to above Acute kidney injury Hypertension Hyperlipidemia Chronic anticoagulation therapy UTI, urine culture positive for E. coli, Enterococcus Leukocytosis Plan: Acute hypoxic respiratory failure secondary to COVID-19 pneumonia: Patient remained stable on high flow at 100%. No complaints noted. Slight improvement noted clinically. Continue IV steroids and supplements. Continue incentive spirometer, ambulation and proning. Continue to wean off oxygen. Maintain sats above 93%. Physical therapy to continue. Continue to pursue long-term acute care facility placement to help with her endurance and rehab. Patient and daughter in agreement. Await approval for long-term acute care facility placement. I will turn to service over to the hospitalist team tomorrow. I will go plan of care with him. Nausea, vomiting secondary to above: Patient tolerating diet. Acute kidney injury: Renal function stable Hypertension: Patient takes multiple medications at home. Blood pressure stable off medication. Continue to monitor closely. If blood pressure maintains above 140/90 then will need to restart one of her medications. Continue to hold metoprolol, hydrochlorothiazide, Norvasc, losartan. Hyperlipidemia: Continue with medicationLipitor 20 mg daily Chronic anticoagulation therapy: Continue with medicationXarelto 20 mg daily UTI, urine culture positive for E. coli, Enterococcus: Rocephin discontinued. Repeat urine culture negative. Patient treated for 7 days of medication for UTI Leukocytosis: Reviewed by pulmonology. Rocephin was discontinued yesterday. Patient on Diflucan. Leukocytosis improved. DVT PPX: Xarelto Code status: Full Discharge Plan: Long-term acute care facility placement Time Spent Managing Pts Care (In Minutes): 55
[2020-10-13] MEDS: ASCORBIC ACID 500 MG TABLET PO SCH ×4 (08:25→20:28)
[2020-10-13] MEDS: ZINC SULFATE 220 MG CAP PO SCH (08:25)
[2020-10-13] MEDS: VITAMIN D 1000 UNIT TAB PO SCH (08:25)
[2020-10-13] MEDS: THIAMINE HCL 100 MG TABLET PO SCH ×2 (08:25→20:28)
[2020-10-13] MEDS: FLUCONAZOLE 100 MG TAB PO SCH (08:25)
[2020-10-13] MEDS: METHYLPREDNISOLONE 40 MG INJ IV SCH ×2 (08:25→20:28)
[2020-10-13] MEDS: ENSURE ENLIVE 237 ML CAN PO SCH ×2 (08:26→20:27)
[2020-10-13] MEDS: RIVAROXABAN 20 MG TABLET PO SCH (16:20)
[2020-10-13] MEDS: ATORVASTATIN 20 MG TAB PO SCH (20:28)
[2020-10-14 04:34] LABS: Absolute Lymphocytes (CBC) 0.9 K/uL (0.7-4.9); Basophils % 0.4 % (0-1.3); Hematocrit 35.2 % (36.0-45.0); Lymphocytes % 6.7 % (15.3-44.8); MPV 8.3 fL (7.6-11.3); RBC Red Blood Cell Count 4.22 M/uL (3.86-4.86)
[2020-10-14 05:23] LABS: ALT/SGPT 55 U/L (12-78); AST/SGOT 28 U/L (15-37); Albumin 2.5 g/dL (3.4-5.0); Alkaline Phosphatase 85 U/L (45-117); BUN Blood Urea Nitrogen 22 mg/dL (7-18); Bicarbonate 28 mmol/L (21-32); Bilirubin Total 1.1 mg/dL (0.2-1.0); Glucose Level 146 mg/dL (74-106); Magnesium 2.5 mg/dL (1.8-2.4); Protein, Total 6.4 g/dL (6.4-8.2); Sodium Level 143 mmol/L (136-145)
[2020-10-14 07:29] LABS: Ferritin 744.9 ng/mL (8-388)
--- NOTE | 2020-10-14 07:31 | RAD REPORT ---
EXAM DESCRIPTION: Mag Single View10/14/2020 6:56 am CLINICAL HISTORY: Chest pain COMPARISON: October 12 FINDINGS: Mild worsening bilateral pulmonary opacities. The heart is borderline enlarged IMPRESSION: Mild worsening bilateral pneumonia
[2020-10-14] MEDS: ENSURE ENLIVE 237 ML CAN PO SCH ×2 (08:52→21:00)
[2020-10-14] MEDS: METHYLPREDNISOLONE 40 MG INJ IV SCH ×2 (08:52→21:36)
[2020-10-14] MEDS: THIAMINE HCL 100 MG TABLET PO SCH ×2 (08:52→21:36)
[2020-10-14] MEDS: ZINC SULFATE 220 MG CAP PO SCH (08:52)
[2020-10-14] MEDS: VITAMIN D 1000 UNIT TAB PO SCH (08:52)
[2020-10-14] MEDS: FLUCONAZOLE 100 MG TAB PO SCH (08:52)
[2020-10-14] MEDS: ASCORBIC ACID 500 MG TABLET PO SCH ×4 (08:52→21:36)
[2020-10-14] MEDS: BENZONATATE 100 MG CAP PO PRN (08:52)
[2020-10-14] MEDS ORDERED: MINERAL OIL 30 ML UCUP PO ONE (13:17)
[2020-10-14] MEDS: RIVAROXABAN 20 MG TABLET PO SCH (16:22)
--- NOTE | 2020-10-14 16:22 | P.PN ---
Date of Service: 10/14/20 Subjective Review of Systems 10-point ROS is otherwise unremarkable Physical Examination - Vital Signs Reviewed - Physical Exam General: Alert, In no apparent distress, Oriented x2-3; senile dementia Respiratory: Diminished Cardiovascular: Regular rate/rhythm, Normal S1 S2, No murmurs Gastrointestinal: Normal bowel sounds, Soft and benign, Non-distended, No tenderness Musculoskeletal: No clubbing, No swelling, No tenderness Assessment & Plan - Problems (Diagnosis) (1) Pneumonia due to COVID-19 virus Current Visit: Yes Status: Acute - Plan Continue with plan of care as mentioned below: 1. Tapering down steroids and will work on LTAC placement 2. Continue to monitor inflammatory markers 3. Repeat chest x-ray 4. O2 per protocol; we need to aggressively try to get her oxygenation improved 5. Pulmonary consultation appreciated 6. Continue with albuterol inhaler therapy; also supportive care 7. GI and DVT prophylaxis
[2020-10-14] MEDS: ATORVASTATIN 20 MG TAB PO SCH (21:36)
[2020-10-15] MEDS ORDERED: FUROSEMIDE 20 MG/ 2ML VIAL IV ONE (08:30)
[2020-10-15] MEDS ORDERED: METHYLPREDNISOLONE 125 MG INJ IV ONE (08:52)
[2020-10-15] MEDS: VITAMIN D 1000 UNIT TAB PO SCH (09:00)
[2020-10-15] MEDS: ASCORBIC ACID 500 MG TABLET PO SCH ×2 (09:00→12:21)
[2020-10-15] MEDS: METHYLPREDNISOLONE 40 MG INJ IV SCH (09:00)
[2020-10-15] MEDS: ZINC SULFATE 220 MG CAP PO SCH (09:00)
[2020-10-15] MEDS: FLUCONAZOLE 100 MG TAB PO SCH (09:00)
[2020-10-15] MEDS: ENSURE ENLIVE 237 ML CAN PO SCH (09:00)
[2020-10-15] MEDS: THIAMINE HCL 100 MG TABLET PO SCH (09:00)
[2020-10-15 09:18] LABS: Absolute Lymphocytes (CBC) 0.9 K/uL (0.7-4.9); Basophils % 0.1 % (0-1.3); Hematocrit 43.2 % (36.0-45.0); Lymphocytes % 4.1 % (15.3-44.8); MPV 8.3 fL (7.6-11.3); RBC Red Blood Cell Count 5.06 M/uL (3.86-4.86)
--- NOTE | 2020-10-15 09:26 | RAD REPORT ---
EXAM DESCRIPTION: RAD - Chest Single View - 10/15/2020 8:51 am CLINICAL HISTORY: pneumonia COMPARISON: TECHNIQUE: AP portable chest image was obtained 10/15/2020 8:51 am . FINDINGS: Bilateral pneumonia findings are present not clearly different from the comparison. Heart and vasculature are normal. No measurable pleural effusion and no pneumothorax. No acute bony abnorma lity seen. No acute aortic findings suspected. IMPRESSION: Bilateral pneumonia pattern stable from prior day imaging.
[2020-10-15 09:42] LABS: Albumin 2.1 g/dL (3.4-5.0); Bilirubin Total 0.9 mg/dL (0.2-1.0); Ferritin 892.4 ng/mL (8-388); Magnesium 2.2 mg/dL (1.8-2.4)
[2020-10-15 09:43] LABS: C-Reactive Protein 72.3 mg/L (<3.00)
[2020-10-15] MEDS ORDERED: LORazepam 2 MG/ML VIAL IV ONE (10:50)
[2020-10-15] MEDS ORDERED: HALOPERIDOL LACT 5 MG/ML INJ IV PRN (10:50)
[2020-10-15] MEDS ORDERED: METOPROLOL TARTRATE 5 MG/5 ML INJ IV STA (10:51)
[2020-10-15] MEDS ORDERED: DIGOXIN 0.25 MG/ML AMP IV ONE (11:30)
[2020-10-15 11:50] LABS: Anisocytosis SLIGHT; Blood Morphology Comment NOTED (NOT SEEN); Burr Cells FEW; Platelet Estimate ADEQ
[2020-10-15 11:56] VITALS: BP 155/74
[2020-10-15 12:35] VITALS: TEMP 97.9
[2020-10-15 13:16] LABS: Arterial Blood Carboxyhemoglob 0.8 % (0-1.5); Blood Gas Oxyhemoglobin 52.8 % (94-97); Blood O2 Saturation 53.7 % (92-98.5)
[2020-10-15 13:49] VITALS: O2SAT 74
[2020-10-15] MEDS ORDERED: EPINEPHrine 1 MG/10 ML SYR IV ONE (16:09)
== END 2020-10-15 16:10 | disposition expired | DRG 177 ==
LOC: ER 14:44 → ERHOLD 09-28 02:26 → 3RD-ICU 09-28 22:20 → 4TH 10-02 07:45
PROVIDERS: ADMIT Family Medicine; ATTEND Family Medicine
PROC: 5A12012 Performance of Cardiac Output, Single, Manual (ICD-10-PCS; principal; 2020-10-15)
DX: U07.1 COVID-19 (principal); J12.82 Pneumonia due to coronavirus disease 2019; J96.01 Acute respiratory failure with hypoxia; N17.9 Acute kidney failure, unspecified; N39.0 Urinary tract infection, site not specified; E87.0 Hyperosmolality and hypernatremia; E44.1 Mild protein-calorie malnutrition; R11.2 Nausea with vomiting, unspecified; I10 Essential (primary) hypertension; E78.5 Hyperlipidemia, unspecified; B96.20 Unspecified Escherichia coli [E. coli] as the cause of diseases classified elsewhere; B95.2 Enterococcus as the cause of diseases classified elsewhere; D72.829 Elevated white blood cell count, unspecified; Z68.26 Body mass index [BMI] 26.0-26.9, adult; Z79.01 Long term (current) use of anticoagulants
CPT/HCPCS: 36415; 70450; 71045; 71250; 74176; 80048; 80053; 80061; 80076; 81001; 81003; 81015; 82607; 82728; 82805; 83605; 83690; 83735; 83880; 84100; 84132; 84145; 84439; 84443; 85025; 85379; 86140; 87077; 87086; 87088; 87186; 94003; 94010; 94640; 94660; 94760; 97110; 97112; 97116; 97161; 97530; 99284; J0171; J0696; J1160; J1630; J1720; J1940; J2405; J2920; J2930; J3475; J7030; J7050; J7512; U0003